=== PATIENT | female | born 1945 | race Caucasian/White ===

== ENCOUNTER 2016-11-14 11:34 | Inpatient (IN) ==
[2016-11-14] MEDS ORDERED: ATROPINE SULFATE PFS IVP PRN (11:49)
[2016-11-14] MEDS ORDERED: TYLENOL PO PRN (11:49)
[2016-11-14] MEDS ORDERED: MORPHINE 4 MG/ML SYRINGE IVP PRN (11:49)
[2016-11-14] MEDS ORDERED: VISTARIL INJ IM PRN (11:49)
[2016-11-14] MEDS ORDERED: NITROSTAT SL PRN (11:49)
[2016-11-14] MEDS ORDERED: ROCEPHIN 1 GM in SODIUM CHLORIDE 100 ML IV SCH (12:00)
[2016-11-14 12:17] LABS: BASOPHILS % (AUTO) 0.2 % (0.0-3.0); EOSINOPHILS # (AUTO) 0.1 K/ul (0.0-0.7); EOSINOPHILS % (AUTO) 0.7 % (0.0-7.0); HEMATOCRIT 30.5 % (37.0-47.0); HEMOGLOBIN 9.6 g/dl (12.0-16.0); IMMATURE GRANULOCYTE % (AUTO) 1.1 % (0.0-5.0); LYMPHOCYTES # (AUTO) 1.1 K/uL (0.60-3.4); LYMPHOCYTES % (AUTO) 9.3 (10.0-50.0); MEAN CORPUSCULAR HEMOGLOBIN 30.1 pg (27.0-31.0); MEAN CORPUSCULAR HGB CONC 31.5 (31.8-35.4); MEAN CORPUSCULAR VOLUME 95.6 fl (81.0-99.0); MONOCYTES # (AUTO) 1.2 K/uL (0.4-2.0); MONOCYTES % (AUTO) 9.7 (0-10); NEUTROPHILS # (AUTO) 9.6 K/ul (2.0-6.9); PLATELET COUNT 319 10^3/uL (140-440); RED BLOOD COUNT 3.19 10^6/ul (4.20-5.40)
[2016-11-14] MEDS ORDERED: ROCEPHIN 1 GM in SODIUM CHLORIDE 50 ML IV STA (12:33)
--- NOTE | 2016-11-14 12:38 | DI ---
Examination: Single radiographic image of the chest. Comparison: 12/20/2014. Reason for study: Shortness of breath. FINDINGS: No pneumothorax or pleural effusion. The images are inverted on today's examination. Th ere is a developing air space opacity in the right upper lobe without discrete consolidation. The c ardiac silhouette is not enlarged. The imaged osseous structures are unremarkable. Impression: 1. Developing air space opacity in the right upper lobe. Imaging findings can be seen with pneumon ia and inflammation. 2. No pneumothorax or pleural effusion.
[2016-11-14 12:41] LABS: ABG PCO2 48.7 mmHg (35-45); ABG PH 7.408 (7.35-7.45)
[2016-11-14 12:45] LABS: ABG BASE EXCESS 6 (-2.0-2.0); ABG HCO3 30.7 (22.0-26.0); ABG TCO2 32 (22.0-28.0)
[2016-11-14 12:48] LABS: ALBUMIN 2.8 g/dL (3.4-5.0); ALBUMIN/GLOBULIN RATIO 0.65; ANION GAP 18.1; BILIRUBIN,TOTAL 0.22 mg/dL (0.00-1.20); BUN/CREATININE RATIO 17.07; CALCIUM 10.3 mg/dL (8.2-10.2); CREATININE 0.82 mg/dL (0.60-1.30); POTASSIUM 4.1 mmol/L (3.5-5.10); TOTAL PROTEIN 7.1 g/dL (5.8-8.1); TROPONIN I 0.102 ng/ml (0.0000-0.4000)
[2016-11-14] MEDS: SOLU-MEDROL 125 MG IVP SCH ×3 (13:00→21:10)
[2016-11-14] MEDS: DUONEB NEB SCH ×3 (13:02→22:44)
--- NOTE | 2016-11-14 13:44 | CT ---
EXAM: CT chest without contrast HISTORY: Shortness of breath COMPARISON: Chest x-ray same day and CT chest 06/20/2013 TECHNIQUE: Serial axial images of the chest were obtained from the lung apices to the upper abdomen without contrast. These were viewed in multiple planes. FINDINGS: The thyroid is normal. The visualized vessels demonstrates scattered atherosclerotic dis ease. The pulmonary arteries are upper limit of normal for size. The heart is normal in size witho ut pericardial effusion. There are mediastinal lymph nodes present with the largest precarinal lymp h node measuring 1.3 cm in diameter. There is a right upper lobe cavitary mass with irregular thickness of the wall measuring 4.1 x 4.7 x 5.8 cm. The wall is significantly thickened superiorly. This is in contact with the right lung ap ex. This cavitary lesion was identified in 2012, but has significantly increased in size and develo ped a asymmetrically thickened wall. The bilateral lungs demonstrate airway thickening with central lobular ground-glass nodularity. The airways are patent. There is no acute consolidation. Limited views of the soft tissues in the upper abdomen are unremarkable with mild atherosclerotic di sease. The osseous structures are normal. IMPRESSION: 1. Increase in right upper lobe cavitary lesion from 2013 with development of irregular and thicken ed wall superiorly. Throughout the remaining lungs, there is scattered small airway thickening and central lobular ground-glass nodularity suggestive of small airways inflammation/infection. These f indings are suggestive of a infectious cavitary lesion in the right upper lobe, but neoplasm cannot be excluded. 2. Mildly enlarged mediastinal lymph nodes are likely reactive. 3. Scattered atherosclerotic disease.
[2016-11-14] MEDS: TESSALON PERLES PO SCH ×3 (14:24→20:49)
[2016-11-14] MEDS: ZITHROMAX 500 MG in SODIUM CHLORIDE 250 ML IV SCH (15:15)
[2016-11-14 15:48] VITALS: BMI 19.3
[2016-11-14 17:29] LABS: FLU INTERNAL QC INTERNAL QC VALID; RAPID FLU A NEGATIVE (NEGATIVE); RAPID FLU B NEGATIVE (NEGATIVE)
[2016-11-14 19:20] LABS: BILIRUBIN,URINE Negative (NEGATIVE); KETONES,URINE Negative (NEGATIVE); LEUKOCYTE ESTERASE ,URINE Negative (NEGATIVE); NITRITE,URINE Negative (NEGATIVE); PROTEIN,URINE Negative (NEGATIVE); URINE, BLOOD Trace-intact (NEGATIVE)
[2016-11-14 19:25] LABS: ADD URINE MICROSCOPIC YES
[2016-11-14] MEDS: LOVENOX SUBCUT SCH (19:53)
[2016-11-14 20:22] LABS: TROPONIN I 0.047 ng/ml (0.0000-0.4000)
[2016-11-14] MEDS: COMBIVENT RESPIMAT INHAL SPRAY IH SCH (20:47)
[2016-11-14] MEDS: ZOCOR PO SCH (20:50)
[2016-11-14] MEDS: ZESTRIL PO SCH (20:50)
[2016-11-14] MEDS ORDERED: LISINOPRIL PO SCH (21:00)
[2016-11-15] MEDS: DUONEB NEB SCH ×4 (04:45→23:05)
[2016-11-15] MEDS: SOLU-MEDROL 125 MG IVP SCH ×3 (05:08→20:20)
[2016-11-15] MEDS ORDERED: PROTONIX PO SCH (06:30)
[2016-11-15] MEDS ORDERED: ASPIRIN EC PO SCH (08:00)
[2016-11-15] MEDS: XANAX PO PRN ×2 (08:14→20:22)
[2016-11-15] MEDS ORDERED: EPA PO SCH ×22 (09:00)
[2016-11-15] MEDS ORDERED: NON-FORMULARY MEDICATION (Calcium Carbonate/Vitamin D3 [Calcium 600 + Vit D Tablet] 1 EACH PO SCH ×22 (09:00)
[2016-11-15] MEDS ORDERED: NON-FORMULARY MEDICATION (Ferrous Sulfate [Ferrous Sulfate] 325 MG) PO SCH ×22 (09:00)
[2016-11-15] MEDS ORDERED: DHA PO SCH ×22 (09:00)
[2016-11-15] MEDS ORDERED: FISH OIL PO SCH ×22 (09:00)
[2016-11-15] MEDS: TRIGLIDE PO SCH (09:40)
[2016-11-15] MEDS: ZESTRIL PO SCH ×2 (09:40→20:21)
[2016-11-15] MEDS: CELEXA PO SCH (09:41)
[2016-11-15] MEDS: PLAVIX PO SCH (09:41)
[2016-11-15] MEDS: TESSALON PERLES PO SCH ×3 (09:41→20:21)
[2016-11-15] MEDS: FERROUS SULFATE PO SCH (09:41)
[2016-11-15] MEDS: ROCEPHIN 1 GM in SODIUM CHLORIDE 100 ML IV SCH (09:43)
[2016-11-15] MEDS: COMBIVENT RESPIMAT INHAL SPRAY IH SCH ×2 (09:43→20:20)
[2016-11-15] MEDS: ASPIRIN EC PO SCH (10:11)
[2016-11-15] MEDS: LOVENOX SUBCUT SCH (10:13)
[2016-11-15] MEDS: CALCIUM 500 + VIT D 200 MG TABLET PO SCH (10:20)
[2016-11-15] MEDS: NORCO 7.5-325 PO PRN ×2 (10:20→20:21)
[2016-11-15] MEDS: TIMOPTIC 0.25% OPTH OP SCH ×2 (10:32→20:22)
[2016-11-15] MEDS: ZITHROMAX 500 MG in SODIUM CHLORIDE 250 ML IV SCH (11:10)
[2016-11-15] MEDS: TUSSIONEX PO SCH ×2 (11:50→20:20)
[2016-11-15] MEDS: OMEGA-3 FISH OIL PO SCH ×2 (15:18→20:21)
[2016-11-15] MEDS: PROTONIX PO SCH (16:52)
[2016-11-15] MEDS: ZOCOR PO SCH (20:21)
[2016-11-15] MEDS: TRAVATAN Z OP SCH (20:36)
[2016-11-16] MEDS: DUONEB NEB SCH ×4 (04:53→22:43)
[2016-11-16] MEDS: SOLU-MEDROL 125 MG IVP SCH ×3 (05:59→20:36)
[2016-11-16] MEDS: PROTONIX PO SCH ×2 (06:02→17:08)
[2016-11-16] MEDS ORDERED: LASIX IVP STA (08:45)
[2016-11-16] MEDS: COMBIVENT RESPIMAT INHAL SPRAY IH SCH ×2 (09:10→20:31)
[2016-11-16] MEDS: TUSSIONEX PO SCH ×2 (09:10→20:32)
[2016-11-16] MEDS: OMEGA-3 FISH OIL PO SCH ×3 (09:10→20:32)
[2016-11-16] MEDS: TIMOPTIC 0.25% OPTH OP SCH ×2 (09:10→20:31)
[2016-11-16] MEDS: ROCEPHIN 1 GM in SODIUM CHLORIDE 100 ML IV SCH (09:10)
[2016-11-16] MEDS: LOVENOX SUBCUT SCH (09:10)
[2016-11-16] MEDS: CALCIUM 500 + VIT D 200 MG TABLET PO SCH (09:11)
[2016-11-16] MEDS: TESSALON PERLES PO SCH ×3 (09:11→20:32)
[2016-11-16] MEDS: FERROUS SULFATE PO SCH (09:11)
[2016-11-16] MEDS: ASPIRIN EC PO SCH (09:11)
[2016-11-16] MEDS: PLAVIX PO SCH (09:11)
[2016-11-16] MEDS: CELEXA PO SCH (09:11)
[2016-11-16] MEDS: ZESTRIL PO SCH ×2 (09:11→20:32)
[2016-11-16] MEDS: TRIGLIDE PO SCH (09:11)
[2016-11-16] MEDS ORDERED: CHLORASEPTIC SPRAY MM PRN (09:49)
[2016-11-16] MEDS: ZITHROMAX 500 MG in SODIUM CHLORIDE 250 ML IV SCH (10:23)
[2016-11-16] MEDS: NORCO 7.5-325 PO PRN (17:28)
[2016-11-16] MEDS: XANAX PO PRN (17:29)
[2016-11-16] MEDS: TRAVATAN Z OP SCH (20:31)
[2016-11-16] MEDS: ZOCOR PO SCH (20:32)
[2016-11-17 03:19] LABS: ABG PH 7.429 (7.35-7.45)
[2016-11-17 03:21] LABS: ABG BASE EXCESS 9 (-2.0-2.0); ABG HCO3 33.8 (22.0-26.0); ABG TCO2 35 (22.0-28.0)
[2016-11-17 04:45] LABS: BASOPHILS % (AUTO) 0.1 % (0.0-3.0); HEMATOCRIT 25.5 % (37.0-47.0); HEMOGLOBIN 8.1 g/dl (12.0-16.0); IMMATURE GRANULOCYTE % (AUTO) 4.3 % (0.0-5.0); LYMPHOCYTES # (AUTO) 0.5 K/uL (0.60-3.4); LYMPHOCYTES % (AUTO) 6.1 (10.0-50.0); MEAN CORPUSCULAR HEMOGLOBIN 30.6 pg (27.0-31.0); MEAN CORPUSCULAR HGB CONC 31.8 (31.8-35.4); MEAN CORPUSCULAR VOLUME 96.2 fl (81.0-99.0); MONOCYTES # (AUTO) 0.2 K/uL (0.4-2.0); MONOCYTES % (AUTO) 2.6 (0-10); NEUTROPHILS # (AUTO) 7.3 K/ul (2.0-6.9); NEUTROPHILS % (AUTO) 86.9; PLATELET COUNT 278 10^3/uL (140-440); RED BLOOD COUNT 2.65 10^6/ul (4.20-5.40); WHITE BLOOD COUNT 8.38 K/ul (4.6-10.2)
[2016-11-17] MEDS: DUONEB NEB SCH ×4 (05:03→23:29)
[2016-11-17 05:09] LABS: ALBUMIN 2.4 g/dL (3.4-5.0); ALBUMIN/GLOBULIN RATIO 0.77; ANION GAP 12.6; BILIRUBIN,TOTAL 0.12 mg/dL (0.00-1.20); BUN/CREATININE RATIO 25.92; CALCIUM 9.3 mg/dL (8.2-10.2); CREATININE 0.81 mg/dL (0.60-1.30); POTASSIUM 4.6 mmol/L (3.5-5.10); TOTAL PROTEIN 5.5 g/dL (5.8-8.1)
[2016-11-17] MEDS: PROTONIX PO SCH ×2 (05:40→17:13)
[2016-11-17] MEDS: SOLU-MEDROL 125 MG IVP SCH ×2 (05:40→14:13)
[2016-11-17 08:39] LABS: IMMATURE RETIC FRACTION 35.1; RETICULOCYTE % 3.35 %
[2016-11-17] MEDS: ROCEPHIN 1 GM in SODIUM CHLORIDE 100 ML IV SCH (09:15)
[2016-11-17] MEDS: ASPIRIN EC PO SCH (09:19)
[2016-11-17] MEDS: CALCIUM 500 + VIT D 200 MG TABLET PO SCH (09:19)
[2016-11-17] MEDS: COMBIVENT RESPIMAT INHAL SPRAY IH SCH ×2 (09:20→21:31)
[2016-11-17] MEDS: CELEXA PO SCH (09:20)
[2016-11-17] MEDS: FERROUS SULFATE PO SCH (09:21)
[2016-11-17] MEDS: LOVENOX SUBCUT SCH (09:21)
[2016-11-17 09:22] LABS: FERRITIN 75.44 ng/mL (4.63-204.00); FOLATE 9.5 ng/mL (3.1-20.5)
[2016-11-17] MEDS: OMEGA-3 FISH OIL PO SCH ×3 (09:22→21:37)
[2016-11-17] MEDS: PLAVIX PO SCH (09:23)
[2016-11-17] MEDS: TESSALON PERLES PO SCH ×3 (09:23→21:39)
[2016-11-17] MEDS: TRIGLIDE PO SCH (09:24)
[2016-11-17] MEDS: TUSSIONEX PO SCH ×2 (09:24→21:36)
[2016-11-17] MEDS: TIMOPTIC 0.25% OPTH OP SCH ×2 (09:24→21:33)
[2016-11-17] MEDS: ZESTRIL PO SCH ×2 (09:25→21:37)
[2016-11-17] MEDS: NORCO 7.5-325 PO PRN ×2 (09:37→21:00)
[2016-11-17 10:01] LABS: OCCULT BLOOD INTERNAL QC 1 INTERNAL QC VALID; OCCULT BLOOD SAMPLE 1 POSITIVE (NEGATIVE)
[2016-11-17 11:16] LABS: TROPONIN I 0.015 ng/ml (0.0000-0.4000)
[2016-11-17 13:21] LABS: AMYLASE 43 U/L (25-115); LIPASE 25 U/L (8-78)
[2016-11-17] MEDS ORDERED: MEDROL DOSEPAK PO SCH ×7 (13:30→14:30)
--- NOTE | 2016-11-17 14:16 | CT ---
EXAM: CT Abdomen without contrast. CT Pelvis without contrast. HISTORY: Anemia. COMPARISON: 09/08/2016. TECHNIQUE: Multiple axial images of the abdomen and pelvis were obtained without intravenous contra st. Images were reformatted in the coronal plane. FINDINGS: Please note that evaluation of the abdominal and pelvic structures is limited due to lack of intravenous contrast. No acute abnormality identified in the lung bases. Degenerative changes are present in the spine. The liver, gallbladder, pancreas, spleen, and adrenal glands demonstrate normal contour. Left kidne y is smaller on the right. No calcified renal stones or hydronephrosis detected. The bowel is normal in course and caliber without evidence for obstruction or inflammatory process. The appendix is normal. Uterus is absent. Urinary bladder is unremarkable. No free fluid or free air identified. Atherosclerotic calcifications are present. There is fusiform dilatation of the i nfrarenal abdominal aorta to a maximum diameter of 3.3 cm. IMPRESSION: 1. No acute abnormality within the abdomen or pelvis. 2. Atherosclerosis with 3.3 cm fusiform infrarenal abdominal aortic aneurysm.
[2016-11-17] MEDS: MEDROL DOSEPAK PO SCH ×2 (17:12→21:31)
[2016-11-17] MEDS: TRAVATAN Z OP SCH (21:33)
[2016-11-17] MEDS: ZOCOR PO SCH (22:27)
[2016-11-18 00:02] LABS: OCCULT BLOOD INTERNAL QC 2 INTERNAL QC VALID; OCCULT BLOOD INTERNAL QC 3 INTERNAL QC VALID; OCCULT BLOOD SAMPLE 2 NO SPECIMEN RECEIVED (NEGATIVE); OCCULT BLOOD SAMPLE 3 NO SPECIMEN RECEIVED (NEGATIVE)
[2016-11-18] MEDS: XANAX PO PRN (03:15)
[2016-11-18 05:42] LABS: BASOPHILS % (AUTO) 0.1 % (0.0-3.0); HEMATOCRIT 26.3 % (37.0-47.0); HEMOGLOBIN 8.4 g/dl (12.0-16.0); IMMATURE GRANULOCYTE % (AUTO) 4.3 % (0.0-5.0); LYMPHOCYTES # (AUTO) 0.8 K/uL (0.60-3.4); LYMPHOCYTES % (AUTO) 9.5 (10.0-50.0); MEAN CORPUSCULAR HEMOGLOBIN 30.7 pg (27.0-31.0); MEAN CORPUSCULAR HGB CONC 31.9 (31.8-35.4); MONOCYTES # (AUTO) 0.7 K/uL (0.4-2.0); MONOCYTES % (AUTO) 7.8 (0-10); NEUTROPHILS # (AUTO) 6.6 K/ul (2.0-6.9); NEUTROPHILS % (AUTO) 78.3; PLATELET COUNT 299 10^3/uL (140-440); RED BLOOD COUNT 2.74 10^6/ul (4.20-5.40); WHITE BLOOD COUNT 8.42 K/ul (4.6-10.2)
[2016-11-18] MEDS: DUONEB NEB SCH ×2 (05:44→11:10)
[2016-11-18] MEDS: MEDROL DOSEPAK PO SCH (05:54)
[2016-11-18 05:55] LABS: ALBUMIN 2.5 g/dL (3.4-5.0); ALBUMIN/GLOBULIN RATIO 0.89; ANION GAP 10.6; BILIRUBIN,TOTAL 0.17 mg/dL (0.00-1.20); BUN/CREATININE RATIO 24.46; CALCIUM 9.2 mg/dL (8.2-10.2); CREATININE 0.94 mg/dL (0.60-1.30); POTASSIUM 4.6 mmol/L (3.5-5.10); TOTAL PROTEIN 5.3 g/dL (5.8-8.1)
[2016-11-18] MEDS: PROTONIX PO SCH (06:00)
[2016-11-18] MEDS: ROCEPHIN 1 GM in SODIUM CHLORIDE 100 ML IV SCH (08:52)
[2016-11-18] MEDS: FERROUS SULFATE PO SCH (08:53)
[2016-11-18] MEDS: OMEGA-3 FISH OIL PO SCH (08:53)
[2016-11-18] MEDS: ASPIRIN EC PO SCH (08:53)
[2016-11-18] MEDS: PLAVIX PO SCH (08:54)
[2016-11-18] MEDS: TESSALON PERLES PO SCH (08:54)
[2016-11-18] MEDS: CALCIUM 500 + VIT D 200 MG TABLET PO SCH (08:54)
[2016-11-18] MEDS: CELEXA PO SCH (08:54)
[2016-11-18] MEDS: ZESTRIL PO SCH (08:54)
[2016-11-18] MEDS: LOVENOX SUBCUT SCH (08:55)
[2016-11-18] MEDS: COMBIVENT RESPIMAT INHAL SPRAY IH SCH (08:56)
[2016-11-18] MEDS: TIMOPTIC 0.25% OPTH OP SCH (08:58)
[2016-11-18] MEDS: TUSSIONEX PO SCH (08:58)
[2016-11-18] MEDS: TRIGLIDE PO SCH (08:58)
[2016-11-18 10:43] VITALS: BP 146/70; TEMP 98
--- NOTE | 2016-11-18 11:27 | PN ---
DATE OF SERVICE: 11/15/16 SUBJECTIVE: The patient is a 71 year old white female hospitalized with upper respiratory tract infection and shortness of breath with bronchitis. The patient has been a smoker and also has cavitary mass, lesion likely neoplasm followed by pulmonary physician. The patient's CT scan of the chest was repeated and showed increased right upper lobe cavitary lesion from 2012. The possibility of neoplasm or infectious cavity lesion was noted. It is to be noted that the patient has no symptoms of tuberculosis. Her weight has been stable and she doesn't have low grade fever and in fact she doesn't have any hemoptysis. REVIEW OF SYSTEMS: CONSTITUTIONAL: No night sweats. No fatigue, malaise, lethargy. No fever or chills. HEENT: Eyes: No visual changes. No eye pain. No eye discharge. ENT: No runny nose. No epistaxis. No sinus pain. No sore throat. No odynophagia. No congestion. Hoariness of the voice. RESPIRATORY: mild cough and congestion. No hemoptysis. She says that she practically coughed all night. The cough was dry. No PND. No orthopnea. CARDIOVASCULAR: No angina symptoms. No CHF symptoms. No atypical chest pain for CAD. No palpitations. No shortness of breath. The patient has pleuritic type of pain at times. GASTROINTESTINAL: No abdominal pain. No nausea or vomiting. No diarrhea or constipation. No hematemesis. No hematochezia. Appetite is better. GENITOURINARY: No urgency. No frequency. No dysuria. No hematuria. No obstructive symptoms. No discharge. No pain. No significant abnormal bleeding. MUSCULOSKELETAL: No musculoskeletal pain; no joint swelling. NEUROLOGICAL: No headache. No neck pain. No syncope. No seizures. No dizziness. PSYCHIATRIC: Not anxious. No depression. No suicidal thoughts. No homicidal thoughts. SKIN: No rash. No lesions. No wounds. ENDOCRINE: No unexplained weight loss. No weight gain. HEMATOLOGIC/LYMPHATIC: No anemia. No purpura. No petechiae. No prolonged or excessive bleeding. No palpable lymph nodes. PHYSICAL EXAMINATION: GENERAL: The patient is oriented to time, place and person. VITAL SIGNS: Temperature 97.5, pulse 80, respiratory rate 22, blood pressure 143/65 and pulse ox 99%. HEENT: Head normocephalic, atraumatic. Eyes: Extraocular muscles are intact. Pupils are equal, round and reactive to light and accommodation. Ears: No lesions. Nose appeared normal. Throat: No exudate or erythema. NECK: Supple. No JVD, no carotid bruit. No lymphadenopathy or thyromegaly. LUNGS: Decreased breath sounds with mild wheeze. Clear to auscultation. Percussion note normal. Chest symmetrical. HEART: S1, S2, no S3. No murmurs. No cyanosis or clubbing. No ascites. Pulses: Dorsalis pedis and posterior tibial pulses +1 to +2 both sides. ABDOMEN: Soft. Nontender. Bowel sounds active. No CVA tenderness. No mass felt. EXTREMITIES: No edema. Full range of motion of all extremities, equal. NEUROLOGIC: No focal deficit. Cranial nerves II through XII are grossly intact. No headache, no double vision or headache. SKIN: Not dry. Intact. Turgor - normal. LYMPHATIC: No palpable lymph nodes/no lymphedema. MUSCULOSKELETAL: Normal joints with no swelling. Muscle tone is normal. LABS: Hgb 9.6, hct 30, WBC 12,000 normal differential, creatinine 0.8, BUN 14, potassium 4.1 these labs were done yesterday. ASSESSMENT: 1. Acute bronchitis with chronic lung disease with history of smoking. 2. Cavitary lesion present on the right upper cavity for long time, being followed by pulmonary MD 3. Depression 4. Dyslipidemia 5. Hypertension 6. Generalized osteoarthritis PLAN: 1. Continue DUO NEBS 2. Continue Inhalers 3. Continue IV antibiotics 4. Continue IV steroids 5. Continue Oxygen supplement 6. Will add Tussionex 1 teaspoon twice a day for coughing CONDITION: Stable Counseling for smoking done. TIME SPENT: More than 30 minutes. Plan and coordination of the patient's care discussed in the presence of nurse. JOVANY
--- NOTE | 2016-11-18 11:38 | PCM.PROG ---
Attending Provider: ATTENDING PROVIDER: Dr. IVETTE TAN DATE OF SERVICE: 11/18/16 SUBJECTIVE: This 71 year old WHITE/ F was hospitalized 11/14/16. The patient is admitted with COPD exacerbation and bronchitis. Hemoglobin dropped from 9.2 to 8.4. Stool for occult blood is positive. CT scan did not show any colonic mass. The patient has never had a colonoscopy, The patient was explained the importance of having the colonoscopy and is agreeable. Breathing is better; she is still coughing. REVIEW OF SYSTEMS: CONSTITUTIONAL: No fever, no chills. ENDOCRINE: No weight loss or weight gain. HEENT: No sinus drainage, no sore throat. CVS: No angina symptoms. No CHF symptoms. No palpitations. No atypical chest pain for CAD. No shortness of breath. RESPIRATORY: Cough. No hemoptysis. GI: No melena. No abdominal pain. No nausea, no vomiting. : No hematuria. No polyuria. SKIN: No rash. No wounds. MUSCULOSKELETAL: No pain. SUPER[employer]: No blackout, no dizziness. No headache. No double vision. PSYCHIATRIC: Not anxious; no depression. No suicidal thoughts. No homicidal thoughts. PHYSICAL EXAMINATION: GENERAL: Lying in bed in no distress. VITAL SIGNS: Temperature 97.1 F, Pulse 67, Respiratory Rate 20, BP 132/70, Pulse Ox 98% HEENT: Normocephalic, atraumatic. Mucosa is dry, pallor positive. NECK: No JVP, no carotid bruit. No lymphadenopathy. CARDIAC: S1, S2, no S3. No murmur, gallop or regurgitation. LUNGS: Decreased with some crackles, expiratory wheezing but is better. ABDOMEN: Soft, non-tender. Bowel sounds active. No rigidity, guarding or CVA tenderness. EXTREMITIES: No clubbing, cyanosis or edema. NEUROLOGIC: Awake, alert and oriented x3. LYMPHATIC: No palpable lymph nodes SKIN: Not dry. Intact. MUSCULOSKELETAL: No joint swelling. LAB REVIEW: 11/18/16 05:00 11/18/16 05:00 11/18/16 05:00: WBC 8.42, RBC 2.74 L, Hgb 8.4 L, Hct 26.3 L, MCV 96.0, MCH 30.7 , MCHC 31.9, RDW Coeff of Nika 15.7 H, Plt Count 299, Immature Gran % (Auto) 4.3 , Neut % (Auto) 78.3, Lymph % (Auto) 9.5 L, Merrick % (Auto) 7.8, Eos % (Auto) 0.0 , Baso % (Auto) 0.1, Immature Gran # (Auto) 0.4, Neut # 6.6, Lymph # 0.8, Merrick # 0.7, Eos # 0.0, Baso # 0.0, Sodium 130 L, Potassium 4.6, Chloride 87 L, Carbon Dioxide 37 H, Anion Gap 10.6, BUN 23 H, Creatinine 0.94, Estimated GFR ( MDRD) 58.00, BUN/Creatinine Ratio 24.46, Glucose 113, Calcium 9.2, Total Bilirubin 0.17, AST 15, ALT 10 L, Alkaline Phosphatase 45 L, Total Protein 5.3 L , Albumin 2.5 L, Globulin 2.8, Albumin/Globulin Ratio 0.89 11/17/16 10:45: Total Creatine Kinase 18, Troponin I 0.0150, Amylase 43, Lipase 25 11/17/16 09:10: Stl Occult Blood (IFOB) Positive, Stool Occult Blood #2 No specimen received, Stool Occult Blood #3 No specimen received 11/17/16 04:25: Reticulocyte % (Auto) 3.35, Absolute Retic 0.0905, Retic Hgb Equivalent 29.4, Iron 22 L, TIBC 266, % Saturation 8, Unsat Iron Binding 244, Ferritin 75.44, Vitamin B12 > 2000 H, Folate 9.5 ASSESSMENT: 1. COPD exacerbation secondary to bronchitis 2. Hypoxemia secondary to above 3. Anemia with positive occult blood 4. Hypertension 5. Dyslipidemia 6. Nicotine use PLAN: 1. Discharge home 2. Keflex 500 mg b.i.d. for 5 days 3. Prednisone 10 mg twice each day for five days 4. Evaluate for home oxygen 5. Nicotine use and its side effects discussed with the patient to include risk of various cancers, lung, colon, et cetera. 6. Followup in the office within 5 days 7. Will recheck hemoglobin Plan and coordination of the patient's care discussed in the presence of Technical Data Analyst and nurse. EDUCATION: Nicotine use and its side effects discussed with the patient to include risk of various cancers, lung, colon, et cetera. Advised the patient to quit. Also discussed with the patient concerning the need for colonoscopy. She is advised to have one. She has agreed for this procedure. The patient states that she has seen Dr. Villeda in the past. Yoli, Technical Data Analyst will get referral. The patient voices understanding and agrees. CONDITION: STABLE SCRIBED BY: JEFFREY ODONNELL Roving Winder scribed while in presence of service performed by Dr. IVETTE TAN on 11/18/16 ([id number])
--- NOTE | 2016-11-18 12:16 | CM.DICTOOL ---
ADMISSION: 11/14/16 11:34 DISCHARGE: 2016 DATE OF SERVICE: 11/18/16 FINAL DIAGNOSIS Shortness of breath URI (upper respiratory infection) Anemia Hypoexemia COPD Continued Smoking Hypertension Dyslipidemia Depression DJD spine Infrarenal Fusiform Abdominal Aortic Aneurysm, 3.[address] (noted in 2012, 2015 and 2016) Hysterectomy Left Breast Lumpectomy LAST VITALS Temp Pulse Resp BP Pulse Ox 98.0 F 62 20 146/70 H 92 L 11/18/16 10:00 11/18/16 10:00 11/18/16 10:00 11/18/16 10:00 11/18/16 10:00 ACTIVE HOME MEDICATIONS Acetaminophen/Hydrocodone Bitart ([place] 7.5-325) 1 tab PO BID PRN PRN Reason: pain Last Admin: 11/17/16 21:00 Dose: 1 tab Albuterol/Ipratropium (Combivent Respimat Inhal [place]) 1 spray IH BID [facility] Last Admin: 11/18/16 08:56 Dose: 1 spray Alprazolam (Xanax) 0.5 mg PO TID PRN PRN Reason: ANXIETY Last Admin: 11/18/16 03:15 Dose: 0.5 mg Aspirin (Aspirin Ec) 81 mg PO DAILYWM [facility] Last Admin: 11/18/16 08:53 Dose: 81 mg Calcium/Vitamin D (Calcium 500 + Vit D 200 Mg Tablet) 1 each PO DAILY [facility] Last Admin: 11/18/16 08:54 Dose: 1 each Citalopram Hydrobromide (Celexa) 20 mg PO DAILY [facility] Last Admin: 11/18/16 08:54 Dose: 20 mg Clopidogrel Bisulfate (Plavix) 75 mg PO DAILY [facility] Last Admin: 11/18/16 08:54 Dose: 75 mg Fenofibrate (Triglide) 160 mg PO DAILY [facility] Last Admin: 11/18/16 08:58 Dose: 160 mg Ferrous Sulfate (Ferrous Sulfate) 324 mg PO DAILY [facility] Last Admin: 11/18/16 08:53 Dose: 324 mg Fish Oil ([place]-3 Fish Oil) 1,000 mg PO TID [facility] Last Admin: 11/18/16 08:53 Dose: 1,000 mg Lisinopril (Zestril) 20 mg PO BID [facility] Last Admin: 11/18/16 08:54 Dose: 20 mg Methylprednisolone (Medrol Dosepak) 4 mg PO 1300 SUSAN PRN Reason: Taper Stop: 11/22/16 09:29 Last Admin: 11/18/16 05:54 Dose: 4 mg Nitroglycerin (Nitrostat) 0.4 mg SL Q5MIN X 3 DOSES PRN PRN Reason: Chest Pain Last Admin: 11/17/16 10:05 Dose: 0.4 mg Pantoprazole Sodium (Protonix) 40 mg PO BIDAC [facility] Last Admin: 11/18/16 06:00 Dose: 40 mg Simvastatin (Zocor) 40 mg PO BEDTIME [facility] Last Admin: 11/17/16 22:27 Dose: 40 mg Timolol Maleate (Timoptic 0.25% Opth) 1 drop OP BID [facility] Last Admin: 11/18/16 08:58 Dose: 1 drop Travoprost (Travatan Z) 1 drop OP BEDTIME [facility] Last Admin: 11/17/16 21:33 Dose: 1 drop ALLERGIES No Known Allergies Allergy (Unverified 11/15/16 02:42) NEW PRESCRIPTIONS: Keflex 500 mg BID for 5 days Please complete the hospital issued Medrol Dose Pack according to direction. SMOKING: Advised to stop smoking DISEASE SPECIFIC EDUCATION: Smoking COPD Anemia Prescriptions Appointments LAB REVIEW: 11/18/16 05:00 11/18/16 05:00 11/18/16 05:00: WBC 8.42, RBC 2.74 L, Hgb 8.4 L, Hct 26.3 L, MCV 96.0, MCH 30.7 , MCHC 31.9, RDW Coeff of Nika 15.7 H, Plt Count 299, Immature Gran % (Auto) 4.3 , Neut % (Auto) 78.3, Lymph % (Auto) 9.5 L, Carl[place] % (Auto) 7.8, Eos % (Auto) 0.0 , Baso % (Auto) 0.1, Immature Gran # (Auto) 0.4, Neut # 6.6, Lymph # 0.8, Carl[place] # 0.7, Eos # 0.0, Baso # 0.0, Sodium 130 L, Potassium 4.6, Chloride 87 L, Carbon Dioxide 37 H, Anion Gap 10.6, BUN 23 H, Creatinine 0.94, Estimated GFR ( MDRD) 58.00, BUN/Creatinine Ratio 24.46, Glucose 113, Calcium 9.2, Total Bilirubin 0.17, AST 15, ALT 10 L, Alkaline Phosphatase 45 L, Total Protein 5.3 L , Albumin 2.5 L, Globulin 2.8, Albumin/Globulin Ratio 0.89 11/17/16 10:45: Amylase 43, Lipase 25 11/17/16 09:10: Stool Occult Blood #2 No specimen received, Stool Occult Blood # 3 No specimen received PLAN: Discharge home Diet: Regular Activity: Gradually resume as tolerated Medication changes: Increase Ferrous sulfate (iron) to twice daily Appointments: Dr. Vega on November 24 at 9 am. Blood work will be done to check the CBC Dr. Concepcion ([facility]) on November 25 at 1:15 pm Ms. Escobar is alert and oriented x 3. She is independent with ADL'S and is ambulatory without use of assistive device. Ms. Escobar is the primary caregiver for her brother who lives in the home with her. Meal intakes are good at 20-75% . She denies nausea or abdominal pain. A stool for occult blood was positive and an appointment has been made with Dr. Concepcion for evaluation for colonoscopy and endoscopy. She is advised to stop smoking. Skin condition is good, no open sores, rashes or other irritation. Sina Vega MD
--- NOTE | 2016-11-18 13:31 | PN ---
DATE OF SERVICE: 11/16/16 SUBJECTIVE: The patient is a 71 year old white female hospitalized with upper respiratory tract infection and shortness of breath on minimal exertion. The patient has acute pneumonitis. REVIEW OF SYSTEMS: CONSTITUTIONAL: No night sweats. Still fatigue. No fever or chills. HEENT: Eyes: No visual changes. No eye pain. No eye discharge. ENT: No runny nose. No epistaxis. No sinus pain. No sore throat. No odynophagia. No congestion. RESPIRATORY: Mild cough with congestion. No hemoptysis. CARDIOVASCULAR: No angina symptoms. No CHF symptoms. No atypical chest pain for CAD. No palpitations. Exertional shortness of breath more than usual lately. No PND. No orthopnea. GASTROINTESTINAL: No abdominal pain. No nausea or vomiting. No diarrhea or constipation. No hematemesis. No hematochezia. Appetite is improving. GENITOURINARY: No urgency. No frequency. No dysuria. No hematuria. No obstructive symptoms. No discharge. No pain. No significant abnormal bleeding. MUSCULOSKELETAL: No musculoskeletal pain; no joint swelling. NEUROLOGICAL: No headache. No neck pain. No syncope. No seizures. No dizziness. PSYCHIATRIC: Not anxious. No depression. No suicidal thoughts. No homicidal thoughts. SKIN: No rash. No lesions. No wounds. ENDOCRINE: No unexplained weight loss. No weight gain. HEMATOLOGIC/LYMPHATIC: No anemia. No purpura. No petechiae. No prolonged or excessive bleeding. No palpable lymph nodes. PHYSICAL EXAMINATION: GENERAL: The patient is oriented to time, place and person. VITAL SIGNS: Temperature 97.8, pulse 100, respiratory rate 21, blood pressure 123/65 and pulse ox 91% with oxygen. HEENT: Head normocephalic, atraumatic. Eyes: Extraocular muscles are intact. Pupils are equal, round and reactive to light and accommodation. Ears: No lesions. Nose appeared normal. Throat: No exudate or erythema. NECK: Supple. No JVD, no carotid bruit. No lymphadenopathy or thyromegaly. LUNGS: Decreased breath sounds but clear to auscultation. Percussion note normal. Chest symmetrical. HEART: S1, S2, no S3. No murmurs. No cyanosis or clubbing. No ascites. Pulses: Dorsalis pedis and posterior tibial pulses +1 to +2 both sides. ABDOMEN: Soft. Nontender. Bowel sounds active. No CVA tenderness. No mass felt. EXTREMITIES: No edema. Full range of motion of all extremities, equal. NEUROLOGIC: No focal deficit. Cranial nerves II through XII are grossly intact. No headache, no double vision or headache. SKIN: Not dry. Intact. Turgor - normal. LYMPHATIC: No palpable lymph nodes/no lymphedema. MUSCULOSKELETAL: Normal joints with no swelling. Muscle tone is normal. LABS: Hgb 9.6, hct 30, WBC 12,000 normal differential, creatinine 0.8, BUN 14, potassium 4.1 and BNP 522. ASSESSMENT: 1. Acute respiratory failure 2. Acute bronchitis 3. Severe chronic lung disease 4. Cavitary lesion on the right lung, being followed by pulmonary MD. 5. Depression 6. Hypertension 7. Dyslipidemia 8. Generalized osteoarthritis PLAN: 1. Continue NEBS treatment 2. Continue Steroids 3. Continue IV antibiotics 4. IV Lasix was given yesterday because of the swelling of the face and the generalized swelling likely from fluid retention from steroid therapy. 5. Continue antibiotics 6. Will do echocardiogram 7. Daily CBC and CMP 8. Will repeat BNP. CONDITION: Stable. TIME SPENT: More than 30 minutes. Plan and coordination of the patient's care discussed in the presence of nurse. JOVANY
--- NOTE | 2016-11-19 08:54 | HP ---
DATE OF SERVICE: 11/14/16 REASON FOR HOSPITALIZATION: Cough, fever, aching all over. HISTORY OF PRESENT ILLNESS: This is a 71-year-old female with complaints of being sick for 2 weeks with fever and chills, getting yellow-green sputum, lots of sinus drainage, sore throat, hurting all over, headache, shortness of breath even at rest. REVIEW OF SYSTEMS: CONSTITUTIONAL: Fever; fatigue. HEENT: Sinus drainage. No sore throat. RESPIRATORY: Cough. No congestion. CARDIOVASCULAR: Shortness of breath is present. No atypical chest pain for coronary artery disease. No angina, CHF symptoms, palpitations. GASTROINTESTINAL: No melena or abdominal pain. No GERD. GENITOURINARY: No hematuria, no polyuria. COMMERCIAL SPECIALIST: No blackout, no dizziness, no headache, no double vision. MUSCULOSKELETAL: Osteoarthritis pain. No joint swelling. ENDOCRINE: No weight loss, no weight gain. SKIN: Not dry, no rash. PSYCHIATRIC: Anxious. No depression, no suicidal thoughts, no homicidal thoughts. PAST MEDICAL HISTORY: 1. COPD 2. CONTINUED SMOKING 3. DJD SPINE, SEVERE 4. DYSLIPIDEMIA 5. HYPERTENSION 6. DEPRESSION 7. PERIPHERAL ARTERIAL DISEASE PAST SURGICAL HISTORY: 1. HYSTERECTOMY 2. CEA BILATERALLY 3. LEFT BREAST LUMPECTOMY SOCIAL HISTORY: The patient smokes, two packs. No alcohol use. . FAMILY HISTORY: COPD, hypertension. MEDICATIONS: (HOME) 1. Fenofibrate 160 mg one tablet p.o. once daily 2. Citalopram 20 mg 1 1/2 tablet p.o. once a day 3. Plavix 75 mg one p.o. daily 4. Lisinopril 20 mg one tablet p.o. two times per day 5. Cimetidine 400 mg tablet two tablets p.o. two times per day 6. Simvastatin 40 mg p.o. once daily in the evening 7. Alprazolam 0.5 mg p.o. three times per day p.r.n. 8. Combivent 18-103 mcg/actuation two puffs by inhalation route four times per day 9. Hydrocodone-acetaminophen 7.5-325 mg p.o. two times per day as needed for pain 10. Albuterol Sulfate 2.5 mg/0.5 mL solution for nebulization four times per day as needed 11. Calcium 600 +D daily 12. Spiriva one capsule by inhalation once daily 13. Fish Oil 360-1,200 mg capsule p.o. three times per day 14. Travatan Z 0.004 % drops one drop into both eyes by ophthalmic route once daily in the evening 15. Timolol 0.25% instill one drop into both eyes by ophthalmic route two times per day 16. Aspirin 81 mg p.o. once daily ALLERGIES: NKDA PHYSICAL EXAMINATION: V/S: Pulse 92, BP 132/70, temperature 100.8, 02 sat 85%. Weight 124.2 pounds. Height 5'5", BMI 20.7 GENERAL APPEARANCE: Oriented times three. The patient is ill-appearing. Dry mucosa. HEENT: Normal. NECK: No JVP, no bruits. RESPIRATORY: Audible wheeze and crackles with decreased entry. CARDIOVASCULAR: S1, S2, no S3, no murmurs. No cyanosis, clubbing. No ascites. GI/ABDOMEN: No tenderness. Bowel sounds are active. EXTREMITIES: No edema, pulses +1, equal. COMMERCIAL SPECIALIST: Deep tendon reflexes, sensory, motor and gait all normal. RECTAL/PELVIC: Colonoscopy screening - Dr. Villeda; refused repeat. Pelvic: Hysterectomy, CA cervix. Refused mammogram. ASSESSMENT: 1. SHORTNESS OF BREATH SECONDARY TO UPPER RESPIRATORY TRACT INFECTION/ PNEUMONIA, R/O FLU 2. HYPOXEMIA 3. COPD - CONTINUED SMOKING 4. DJD SPINE, SEVERE 5. DYSLIPIDEMIA 6. HYPERTENSION 7. DEPRESSION 8. PERIPHERAL ARTERIAL DISEASE - CEA PLAN: (Admit to regular floor with telemetry protocol) 1. CBC, CMP 2. BNP 3. ABG on room air 4. CT chest with contrast 5. Rapid flu A & B 6. Blood culture with sputum cultures 7. IVF at 8. Rocephin 1 gm IV daily 9. Zithromycin 500 mg IV daily 10. Duoneb q.6hr 11. Solu-Medrol 125 mg q.8hr 12. Tessalon Perles 200 mg q.i.d. 13. Continue home medications TIME SPENT: More than 70 minutes. MTDD
--- NOTE | 2016-11-20 11:15 | ECHO2D ---
Date of Exam: 11/18/16 Ordering Physician: GREG GONZALEZ Reason for Echo: HTN, SOB, RESPIRATORY FAILURE Auscultation: S1, S2 M-Mode Normal Adult Results LV Dimensions Normal Adult Results AoV Opening excursions >1.6 >1.6 LVEDD-base- 3.5-5.8 4.2 Ao root dimensions 2.0-3.7 2.8 LVESD-base- 3.1-4.6 L. Atrium dimensions 1.9-3.8 3.8 Post. Wall thickness 0.8-1.1 1.2 IV septum (thickness) 0.7-1.2 1.2 Post. Wall excursion 0.72-1.3 NORMAL Septal motion NORMAL Systolic motion R. Ventricular cavity 1.5-2.0 NORMAL LVEF 60% 53% Paradoxical septal wall motion NORMAL 2-D : NORMAL LEFT VENTRICULAR CONTRACTILITY--NORMAL VALVES--NO EFFUSION, NO THROMBUS, NORMAL LEFT ATRIAL AND LEFT VENTRICLE CAVITIES M-MODE: MV: NORMAL AV: NORMAL TV: NORMAL PV: CHAMBER SIZE: NORMAL WALL MOTION: NORMAL PERICARDIUM: NORMAL INTERPRETATION: 1. BORDERLINE LEFT VENTRICULAR HYPERTROPHY 2. NORMAL LEFT VENTRICULAR CONTRACTILITY 3. NORMAL VALVES MTDD
--- NOTE | 2016-11-20 12:44 | DS ---
DATE OF SERVICE: 11/18/16 FINAL DIAGNOSIS: 1. Upper respiratory infection 2. Shortness of breath secondary to the upper respiratory infection 3. Anemia secondary to the chronic disease and GI bleed, positive Occult blood test, awaiting for the GI evaluation 4. Hypoxemia which is better 5. COPD, continued smoking 6. Hypertension 7. Dyslipidemia 8. Depression 9. DJD spine 10.Infrarenal fusiform abdominal aortic aneurysm, 3.3cm 11.Hysterectomy 12.Left breast lumpectomy VITAL AT THE TIME OF DISCHARGE: Blood pressure 146/70, respiratory rate 20, heart rate 62, temperature 98.0 and saturation 92%. DISCHARGE INSTRUCTIONS: Discharge home today. Continue home medication. Followup in the office within 5- 7 days. MEDICATIONS AT DISCHARGE: [place] Combivent Xanax Aspirin Calcium Celexa Plavix Triglide Ferrous sulfate [place] 3 Zestril Protonix Zocor Eye drops [place] ALLERGIES: No known allergies NEW PRESCRIPTIONS: Keflex 500mg twice a day for 5 days Please continue and finish the Medrol Dosepak from the hospital DIET INSTRUCTIONS: Regular ACTIVITY: Gradually resume as tolerated SMOKING: Advised to stop smoking DISEASE SPECIFIC EDUCATION: COPD, Exacerbation and Pneumonia been discussed Pneumonia vaccination been discussed Anemia and the Risk of GI bleed and colon cancer discussed and she verbalized understanding and wants to go for the colonoscopy now, which has been scheduled as outpatient. HOSPITAL COURSE: Valerie Escobar who is a 71 year old female came to the office coughing, congestion , shortness of breath and saturation was 85% on the room air, respiratory rate was almost 30. At that time the patient was admitted from the office directly. ABG showed pH 7.408, pCO2 48, pO2 [address] and BNP was 505. CT of the chest showed the questionable inflammation and increasing in the cavitary lesion. The patient was already seeing Dr. Goel in the past for the cavitary lesion. No biopsy was done. The patient was put on the Rocephin, Azithromycin, Solu-Medrol and breathing treatment. Hgb was 9.6 and dropped to 8.1, stool for Occult blood test was done which is positive. Influenza negative. CT of abdomen and pelvis done which showed intrarenal aneurysm 3.3cm. Hgb was steady then and did not drop. It went up to 8.4 and the patient finally agreed to do the colonoscopy and today she was feeling better but stress from the patient's brother's health otherwise she was willing to go home. At that time she was discharged home and strictly explained about the anemia. Continue to take iron tablets extra pill and GI consultation. TIME SPENT: More than 45 minutes today. JOVANY
--- NOTE | 2016-12-31 15:08 | PN ---
DATE OF SERVICE: 11/17/16 SUBJECTIVE: The patient was admitted with COPD exacerbation, shortness of breath , hypoxemia. The patient still having some coughing and shortness of breath with minimal exertion. REVIEW OF SYSTEMS: CONSTITUTIONAL: No fever, no chills. HEENT: Normal. ENDOCRINE: No weight gain, no weight loss. CVS: No angina symptoms. No CHF symptoms. No palpitations. No atypical chest pain for CAD. Shortness of breath. No PND, no orthopnea. RESPIRATORY: Cough, no hemoptysis. GI: No nausea, no vomiting. No abdominal pain. : No hematuria. No polyuria. MUSCULOSKELETAL:. No joint swelling. PSYCHIATRIC: Not anxious. No depression. No suicidal thoughts. No homicidal thoughts. SKIN: Intact. No rash. PHYSICAL EXAMINATION: V/S: Blood pressure 114/67, respiratory rate 20, heart rate 66, temperature 97.0 , saturation 97. HEENT: Normocephalic, atraumatic. Mucosa dry. Pallor positive. No icterus. NECK: Supple. No JVD, no carotid bruit. No lymphadenopathy. LUNGS: Decreased with basilar crackles. No rales or rhonchi. HEART: S1, S2 normal. No S3. No murmur, gallop or regurgitation. ABDOMEN: Soft, nontender. Bowel sounds active. No rigidity. No rebound or guarding. No CVA tenderness. EXTREMITIES: No clubbing, cyanosis or pedal edema. MUSCULOSKELETAL: No joint swelling. NEUROLOGIC: Awake, alert, oriented times three. No focal deficit. LYMPHATIC: No lymph nodes palpable. SKIN: Intact. LABS: White count is 8.38, hemoglobin 8.1, hematocrit 25.5, platelet count 278 , sodium 134, potassium 4.6, chloride 91, bicarb 35, BUN 21, creatinine 0.81, glucose 158. ASSESSMENT: 1. CHRONIC OBSTRUCTIVE PULMONARY DISEASE EXACERBATION SECONDARY TO BRONCHITIS AND UPPER RESPIRATORY INFECTION 2. HISTORY OF CORONARY ARTERY DISEASE, STATUS POST STENT 3. CHRONIC OBSTRUCTIVE PULMONARY DISEASE 4. CONTINUED SMOKING 5. HYPERTENSION 6. DYSLIPIDEMIA 7. DEPRESSION 8. DJD OF THE SPINE 9. GERD 10. HYSTERECTOMY 11. LEFT BREAST LUMPECTOMY 12. CATARACT SURGERY PLAN: 1. Continue Rocephin, Zithromycin. 2. Lovenox for the DVT prophylaxis. 3. Out of bed to chair. 4. Activity as tolerated. TIME SPENT: More than 30 minutes MTDD
== END 2016-11-18 13:57 | disposition home or self-care (01) | DRG 153 ==
LOC: MEDSURG A 11:34
PROVIDERS: ADMIT Emergency Medicine; ATTEND Emergency Medicine
DX: J06.9 Acute upper respiratory infection, unspecified (principal); R06.02 Shortness of breath; D50.0 Iron deficiency anemia secondary to blood loss (chronic); R19.5 Other fecal abnormalities; J44.9 Chronic obstructive pulmonary disease, unspecified; R09.02 Hypoxemia; F17.210 Nicotine dependence, cigarettes, uncomplicated; I71.4 Abdominal aortic aneurysm, without rupture; J98.4 Other disorders of lung; F32.9 Major depressive disorder, single episode, unspecified; E78.5 Hyperlipidemia, unspecified; I10 Essential (primary) hypertension; M15.9 Polyosteoarthritis, unspecified; Z79.01 Long term (current) use of anticoagulants; Z79.899 Other long term (current) drug therapy
CPT/HCPCS: 36415; 80053; 81001; 82150; 82272; 82550; 82607; 82728; 82746; 82803; 83540; 83550; 83690; 83874; 83880; 84466; 84484; 85025; 85045; 87040; 87070; 87804; 93005; 93010; 94640; 94761

== ENCOUNTER 2016-12-16 08:56 | Day surgery (SDC) ==
[2016-12-16] MEDS ORDERED: ALBUTEROL 0.083% NEB NEB STA (09:59)
[2016-12-16] MEDS ORDERED: DIPRIVAN 20 ML VIAL IVP ONE (11:27)
[2016-12-16] MEDS ORDERED: VERSED ONE (11:27)
[2016-12-16 13:21] VITALS: BP 151/65; TEMP 99
--- NOTE | 2016-12-17 13:16 | OP ---
INDICATIONS FOR PROCEDURE: 71-year-old female presents for colonoscopy exam. She has a history of iron deficiency anemia and was found to have heme positive stools. MEDICATIONS: SEE ANESTHESIA NOTES. PROCEDURE: 1. ENDOSCOPY. 2. COLONOSCOPY, SNARE POLYPECTOMY. REPORT: The risks, benefits, alternatives and limitations were discussed in detail with the patient. Informed consent was obtained. After adequate sedation was achieved, the video endoscope was introduced in the posterior pharynx and esophagus under direct vision and easily advanced down to the second portion and beginning of the third portion of the duodenum. I then slowly withdrew. In the second portion of the duodenum, there was four small angiectasias. These were only a few millimeter in size. The bulb was relatively unremarkable. The antrum and body were relatively unremarkable. The antrum and body were relatively unremarkable. The scope was retroflexed to look at the cardia and fundus which revealed a hiatal hernia. The scope was anteflexed and withdrawn back through the esophagus which was unremarkable. The patient tolerated this procedure well. The patient's bed was turned and a digital rectal exam revealed good tone, no masses. A colonoscope was introduced into the rectum and advanced under direct visual guidance to the cecum. The cecum was identified by the appendiceal orifice and IC valve. At the junction of the ascending colon and cecum, there is a raised lesion about 7 mm in greatest size that appeared to be a hyperplastic type polyp. It had a central cavity. Question if this is a diverticulum. This was adjacent to the IC valve with the IC valve to the left; this was to the right of it on the same fold. I do not believe it it was a fistula tract. It appeared benign. It was not amenable to removal by snare technique as it was relatively flat with a volcano type opening. I therefore biopsied this a couple of times for histological review and had the suggestion of a pancreatic rest. I then slowly withdrew the scope in a circumferential manner examining the remaining colon. In the ascending colon there was a 6 mm sessile polyp that I removed by snare technique. At 25 cm there was a 7 or 8 mm semi sessile polyp that I removed by snare technique. In the distal sigmoid there was a benign appearing 6 or 7 mm sessile polyp that I removed by snare technique. There were a few diverticula scattered throughout the sigmoid colon. No other abnormalities noted including on retroflex view of the anal canal. The patient tolerated the procedure well with stable vital signs and pulse oximetry throughout. IMPRESSION: 1. 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 2. 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 This could have been a abnormal polyp or diverticulum. 3. Three (3) colonic polyps removed. 4. Mild sigmoid diverticulosis. RECOMMENDATIONS: 1. Iron supplementation 2. Await pathology results from the biopsies of the lesion next to the IC valve. If this is completely benign tissue, then no further investigation is warranted. If it does show a precancerous type of tissue, then consider repeat colonoscopy examination with attempted removal in three to six months. This would be considered as a first option with possible saline injection versus surgical resection. 3. If the lesion next to the IC valve is completely benign as above, then with the other polyps, I suggest a repeat colonoscopy examination again in three years, sooner if signs or symptoms were to indicate otherwise. 4. Will see her back in the office as needed but will contact her with the pathology results. CC: DR. CARLOS MANZO
== END 2016-12-16 13:13 | disposition home or self-care (01) ==
LOC: SURG 08:56
PROVIDERS: ATTEND Internal Medicine Gastroenterology
DX: R19.5 Other fecal abnormalities (principal); D12.0 Benign neoplasm of cecum; D12.2 Benign neoplasm of ascending colon; D12.5 Benign neoplasm of sigmoid colon; D50.9 Iron deficiency anemia, unspecified; K44.9 Diaphragmatic hernia without obstruction or gangrene; K57.30 Diverticulosis of large intestine without perforation or abscess without bleeding; Q27.33 Arteriovenous malformation of digestive system vessel
CPT/HCPCS: 94640

== ENCOUNTER 2018-01-07 14:55 | Inpatient (IN) | payer OTHER ==
[2018-01-07] MEDS ORDERED: TYLENOL PO PRN (15:19)
[2018-01-07] MEDS ORDERED: MORPHINE 4 MG/ML VIAL IVP PRN (15:19)
[2018-01-07] MEDS ORDERED: VISTARIL INJ IM PRN (15:19)
[2018-01-07] MEDS ORDERED: NITROSTAT SL PRN (15:19)
[2018-01-07] MEDS ORDERED: ATROPINE SULFATE PFS IVP PRN (15:19)
[2018-01-07 15:36] VITALS: BMI 20.5
[2018-01-07] MEDS: DEXTROSE 5%-1/2NS IV SOLUTION 1,000 ML IV SCH (16:07)
[2018-01-07] MEDS ORDERED: ROCEPHIN ONE (16:11)
[2018-01-07] MEDS: ROCEPHIN 1 GM in SODIUM CHLORIDE 50 ML IV SCH (16:15)
[2018-01-07] MEDS: SOLU-CORTEF 250 MG IVP SCH ×2 (16:15→21:23)
[2018-01-07] MEDS: TUSSIONEX PO PRN (16:15)
[2018-01-07] MEDS: TORADOL IVP SCH ×2 (16:15→21:23)
[2018-01-07] MEDS: ZITHROMAX PO SCH (16:16)
--- NOTE | 2018-01-07 16:26 | DI ---
EXAM: CHEST FRONTAL VIEW HISTORY: Pneumonitis. COMPARISON: 11/14/2016 FINDINGS: Heart size remains within normal limits. Moderately severe atherosclerosis. Interval reena cement of a left port catheter ending over the superior vena cava. Increased right upper lobe thick- walled cavitary appearing lesion since previous exam. Lungs are otherwise grossly clear. No pneumot horax or pleural fluid. IMPRESSION: Worsening thick-walled cavitary appearing lesion of the right upper lobe suggesting a pneumonia/absce ss.
[2018-01-07] MEDS: XOPENEX 1.25 MG NEB SCH ×2 (16:55→23:22)
[2018-01-07] MEDS ORDERED: NON-FORMULARY MEDICATION (Ondansetron Hcl [Zofran] 8 MG) PO SCH (17:00)
[2018-01-07] MEDS: PROTONIX PO SCH (18:15)
[2018-01-07] MEDS: COMBIVENT RESPIMAT INHAL SPRAY IH SCH ×2 (18:16→21:27)
[2018-01-07] MEDS ORDERED: DUONEB NEB SCH (21:00)
[2018-01-07] MEDS ORDERED: EPA PO SCH (21:00)
[2018-01-07] MEDS ORDERED: NON-FORMULARY MEDICATION (Ferrous Sulfate [Ferrous Sulfate] 325 MG) PO SCH (21:00)
[2018-01-07] MEDS ORDERED: DHA PO SCH (21:00)
[2018-01-07] MEDS ORDERED: FISH OIL PO SCH (21:00)
[2018-01-07] MEDS ORDERED: ZESTRIL PO SCH (21:00)
[2018-01-07] MEDS ORDERED: NON-FORMULARY MEDICATION (Lisinopril [Lisinopril] 20 MG) PO SCH (21:00)
[2018-01-07] MEDS: TRAVATAN Z OP SCH (21:22)
[2018-01-07] MEDS: OMEGA-3 FISH OIL PO SCH (21:22)
[2018-01-07] MEDS: FERROUS SULFATE PO SCH (21:23)
[2018-01-07] MEDS: MUCINEX PO SCH (21:23)
[2018-01-07] MEDS: ZOCOR PO SCH (21:23)
[2018-01-07] MEDS: ZOFRAN TAB PO SCH (21:23)
[2018-01-07] MEDS: TAGAMET PO SCH (21:28)
[2018-01-08] MEDS: XOPENEX 1.25 MG NEB SCH ×3 (04:46→17:57)
[2018-01-08] MEDS: SOLU-CORTEF 250 MG IVP SCH ×3 (05:43→23:04)
[2018-01-08] MEDS: PROTONIX PO SCH ×2 (05:44→16:33)
[2018-01-08] MEDS: TAGAMET PO SCH ×2 (05:44→16:32)
[2018-01-08] MEDS: TORADOL IVP SCH ×3 (05:44→20:51)
[2018-01-08] MEDS: DEXTROSE 5%-1/2NS IV SOLUTION 1,000 ML IV SCH (05:45)
[2018-01-08] MEDS: PLAVIX PO SCH (08:21)
[2018-01-08] MEDS: ROCEPHIN 1 GM in SODIUM CHLORIDE 50 ML IV SCH (08:21)
[2018-01-08] MEDS: COMBIVENT RESPIMAT INHAL SPRAY IH SCH ×4 (08:21→20:56)
[2018-01-08] MEDS: LEXAPRO PO SCH (08:22)
[2018-01-08] MEDS: ASPIRIN EC PO SCH (08:22)
[2018-01-08] MEDS: FERROUS SULFATE PO SCH ×2 (08:22→20:52)
[2018-01-08] MEDS: TRIGLIDE PO SCH (08:22)
[2018-01-08] MEDS: ZOFRAN TAB PO SCH ×4 (08:22→20:52)
[2018-01-08] MEDS: OMEGA-3 FISH OIL PO SCH ×3 (08:22→20:51)
[2018-01-08] MEDS: MUCINEX PO SCH ×2 (08:23→20:52)
[2018-01-08] MEDS: ZITHROMAX PO SCH (08:23)
[2018-01-08] MEDS: CALCIUM 500 + VIT D 200 MG TABLET PO SCH (08:23)
[2018-01-08] MEDS ORDERED: SOLU-CORTEF 250 MG IVP SCH ×2 (08:30)
[2018-01-08] MEDS ORDERED: NON-FORMULARY MEDICATION (Calcium Carbonate/Vitamin D3 [Calcium 600 + Vit D Tablet] 1 EACH PO SCH (09:00)
[2018-01-08] MEDS ORDERED: ASPIRIN EC PO SCH (09:00)
--- NOTE | 2018-01-08 09:20 | PCM.PROG ---
Attending Provider: ATTENDING PROVIDER: Dr. GREG GONZALEZ This patient is seen with Rola Nath, Nurse Practitioner. DATE OF SERVICE: 01/08/18 SUBJECTIVE: This 72 year old WHITE/ F was hospitalized 01/07/18. The patient is sitting up in bed, alert, resting comfortably. Cough is becoming more productive. Hemoglobin is low today. Will type and cross two units PRBCs. Last chemo treatment 3 weeks ago. REVIEW OF SYSTEMS: CONSTITUTIONAL: Weakness. No night sweats. No malaise, lethargy. No fever or chills. HEENT: Eyes: No visual changes. No eye pain. No eye discharge. ENT: No runny nose. No epistaxis. No sinus pain. No odynophagia. No congestion. RESPIRATORY: Cough and congestion. No hemoptysis. Shortness of breath. CARDIOVASCULAR: No angina symptoms. No CHF symptoms. No atypical chest pain for CAD. No palpitations. No orthopnea.. GASTROINTESTINAL: No abdominal pain. No nausea or vomiting. No diarrhea or constipation. No hematemesis. No hematochezia. GENITOURINARY: No urgency. No frequency. No dysuria. No hematuria. No obstructive symptoms. No discharge. No pain. No significant abnormal bleeding. MUSCULOSKELETAL: No musculoskeletal pain; no joint swelling. NEUROLOGICAL: Awake, alert, oriented to time, place and person. No headache. No neck pain. No syncope. No seizures. No dizziness. PSYCHIATRIC: Not anxious. No depression. No suicidal thoughts. No homicidal thoughts. SKIN: No rash. No lesions. No wounds. ENDOCRINE: No unexplained weight loss. No weight gain. HEMATOLOGIC/LYMPHATIC: No anemia. No purpura. No petechiae. No prolonged or excessive bleeding. No palpable lymph nodes. PHYSICAL EXAMINATION: GENERAL: The patient is awake, alert and oriented, sitting in bed in no distress. VITAL SIGNS: Temperature 98.6 F, Pulse 88, Respiratory Rate 20, BP 86/46, Pulse Ox 96% HEENT: Head normocephalic, atraumatic. Eyes: Extraocular muscles are intact. Pupils are equal, round and reactive to light and accommodation. Ears: No lesions. Nose appeared normal. Throat: No exudate or erythema. The patient is pale. NECK: Supple. No JVD, no carotid bruit. No lymphadenopathy or thyromegaly. LUNGS: Bilateral rhonchi, severe. Percussion note normal. Chest symmetrical. HEART: S1, S2, no S3. No murmurs. No cyanosis or clubbing. No ascites. Pulses: Dorsalis pedis and posterior tibial pulses +1 to +2 both sides. ABDOMEN: Soft. Non-tender. Bowel sounds active. No CVA tenderness. No mass felt. EXTREMITIES: No edema. Full range of motion of all extremities, equal. NEUROLOGIC: No focal deficit. Cranial nerves II through XII are grossly intact. No headache, no double vision or headache. SKIN: Not dry. Intact. Turgor-normal. LYMPHATIC: No palpable lymph nodes/no lymphedema. MUSCULOSKELETAL: Normal joints with no swelling. Muscle tone is normal. LAB REVIEW: 01/08/18 04:30 01/08/18 04:30 01/08/18 04:30: Sodium 137, Potassium 4.4, Chloride 99, Carbon Dioxide 29, Anion Gap 13.4, BUN 24 H, Creatinine 1.07, Estimated GFR (MDRD) 50.00, BUN/ Creatinine Ratio 22.42, Glucose 184 H D, Calcium 8.9, Total Bilirubin 0.2, AST 27, ALT 18, Alkaline Phosphatase 44 L, Total Protein 5.5 L, Albumin 1.7 L, Globulin 3.8, Albumin/Globulin Ratio 0.45 01/08/18 04:30: WBC 4.17 L, RBC 1.95 L, Hgb 6.7 L, Hct 22.1 L, MCV 113.3 H, MCH 34.4 H, MCHC 30.3 L, RDW Coeff of Nika 16.5 H, Plt Count 66 L, Immature Gran % ( Auto) 1.4, Neut % (Auto) 85.9, Lymph % (Auto) 7.0 L, [place] % (Auto) 5.5, Eos % ( Auto) 0.0, Baso % (Auto) 0.2, Immature Gran # (Auto) 0.1, Neut # (Auto) 3.6, Lymph # (Auto) 0.3 L, [place] # (Auto) 0.2 L, Eos # (Auto) 0.0, Baso # (Auto) 0.0, Anisocytosis Not present, Macrocytosis 1+ 01/07/18 18:30: Urine Color Dark, Urine Clarity Clear, Urine pH 5.5, Ur Specific [place] 1.020, Urine Protein 1+, Urine Glucose (UA) Negative, Urine Ketones Negative, Urine Blood Negative, Urine Nitrite Negative, Urine Bilirubin 1+, Urine Urobilinogen 1.0, Ur Leukocyte Esterase Negative, Urine Microscopic RBC 0-2, Urine Microscopic WBC 5-10, Ur Squamous Epith Cells 2-5, Ur Transition Epith Cell 2-5, Urine Bacteria Trace, Urine Mucus Trace 01/07/18 17:50: Influ A Molecular Assay Negative by naat, Influ B Molecular Assay Negative by naat 01/07/18 16:30: Sodium 138, Potassium 3.8, Chloride 97 L, Carbon Dioxide 28, Anion Gap 16.8, BUN 15, Creatinine 0.75, Estimated GFR (MDRD) 76.00, BUN/ Creatinine Ratio 20.00, Glucose 116 H, Calcium 9.5, Total Bilirubin 0.7, AST 18 , ALT 10 L, Alkaline Phosphatase 49 L, Total Protein 6.2, Albumin 2.0 L, Globulin 4.2, Albumin/Globulin Ratio 0.48 01/07/18 16:26: WBC 5.23, RBC 2.17 L, Hgb 7.6 L, Hct 23.9 L, MCV 110.1 H, MCH 35.0 H, MCHC 31.8, RDW Coeff of [place] 16.2 H, Plt Count 69 L, Immature Gran % ( Auto) 1.7, Neut % (Auto) 78.6, Lymph % (Auto) 8.8 L, [place] % (Auto) 10.5 H, Eos % (Auto) 0.4, Baso % (Auto) 0.0, Immature Gran # (Auto) 0.1, Neut # (Auto) 4.1, Lymph # (Auto) 0.5 L, [place] # (Auto) 0.6, Eos # (Auto) 0.0, Baso # (Auto) 0.0 01/07/18 15:19: Puncture Site Lrad, O2 Saturation 90.0 L, ABG pH 7.443, ABG pCO2 44.8, ABG pO2 58.0 L*, ABG HCO3 30.6 H, ABG Total CO2 32 H, ABG Base Excess 7 H, [place] Test +, FiO2 % 21.0 ASSESSMENT: 1. PNEUMONIA 2. ANEMIA 3. DEHYDRATION 4. RIGHT LUNG CARCINOMA PLAN: 1. Solucortef q.6 2. Type and cross 2 units 3. Hold Zestril 4. Vancomycin 500 mg q12. IV 5. Continue Morphine p.r.n. 6. Continue Toradol Plan and coordination of the patient's care discussed in the presence of Flower Picker and nurse. CONDITION: Stable SCRIBED BY: JEFFREY ODONNELL Legal Writing Professor scribed while in presence of service performed by Dr. Gonzalez/Rola Nath APRN on 01/08/18 ([id number])
[2018-01-08] MEDS: VANCOMYCIN 1 GM in SODIUM CHLORIDE 250 ML IV SCH (10:44)
[2018-01-08] MEDS: XANAX PO PRN (19:47)
[2018-01-08] MEDS: TRAVATAN Z OP SCH (20:50)
[2018-01-08] MEDS: ZOCOR PO SCH (20:51)
[2018-01-08] MEDS: NORCO 7.5-325 PO PRN (20:52)
[2018-01-08] MEDS: TUSSIONEX PO PRN (20:58)
[2018-01-09] MEDS: XOPENEX 1.25 MG NEB SCH ×4 (00:49→17:10)
[2018-01-09] MEDS: DEXTROSE 5%-1/2NS IV SOLUTION 1,000 ML IV SCH ×2 (02:34→17:58)
[2018-01-09] MEDS ORDERED: TUSSIONEX PO STA (03:27)
[2018-01-09] MEDS: TAGAMET PO SCH ×2 (05:59→16:39)
[2018-01-09] MEDS: PROTONIX PO SCH ×2 (05:59→16:39)
[2018-01-09] MEDS: TORADOL IVP SCH ×3 (06:00→22:07)
[2018-01-09] MEDS: SOLU-CORTEF 250 MG IVP SCH ×3 (06:01→22:06)
[2018-01-09] MEDS: ROCEPHIN 1 GM in SODIUM CHLORIDE 50 ML IV SCH (08:48)
[2018-01-09] MEDS: PLAVIX PO SCH (08:49)
[2018-01-09] MEDS: LEXAPRO PO SCH (08:49)
[2018-01-09] MEDS: ZOFRAN TAB PO SCH ×4 (08:49→22:01)
[2018-01-09] MEDS: TRIGLIDE PO SCH (08:49)
[2018-01-09] MEDS: CALCIUM 500 + VIT D 200 MG TABLET PO SCH (08:49)
[2018-01-09] MEDS: OMEGA-3 FISH OIL PO SCH ×3 (08:49→22:01)
[2018-01-09] MEDS: FERROUS SULFATE PO SCH ×2 (08:49→22:01)
[2018-01-09] MEDS: ZITHROMAX PO SCH (08:49)
[2018-01-09] MEDS: COMBIVENT RESPIMAT INHAL SPRAY IH SCH ×4 (08:49→22:00)
[2018-01-09] MEDS: MUCINEX PO SCH ×2 (08:49→22:01)
[2018-01-09] MEDS: ASPIRIN EC PO SCH (09:51)
[2018-01-09] MEDS: VANCOMYCIN 1 GM in SODIUM CHLORIDE 250 ML IV SCH (09:51)
[2018-01-09] MEDS: XANAX PO PRN (17:41)
[2018-01-09] MEDS: TUSSIONEX PO PRN (17:41)
[2018-01-09] MEDS: NORCO 7.5-325 PO PRN (17:41)
[2018-01-09] MEDS ORDERED: MIRALAX PO PRN (19:07)
[2018-01-09] MEDS: TRAVATAN Z OP SCH (22:00)
[2018-01-09] MEDS: ZOCOR PO SCH (22:02)
[2018-01-10] MEDS: XOPENEX 1.25 MG NEB SCH ×4 (00:52→18:23)
[2018-01-10] MEDS: PROTONIX PO SCH ×2 (05:47→16:10)
[2018-01-10] MEDS: TAGAMET PO SCH ×2 (05:47→16:10)
[2018-01-10] MEDS: TORADOL IVP SCH ×3 (05:47→21:32)
[2018-01-10] MEDS: COMBIVENT RESPIMAT INHAL SPRAY IH SCH ×4 (09:19→21:37)
[2018-01-10] MEDS: ROCEPHIN 1 GM in SODIUM CHLORIDE 50 ML IV SCH (09:19)
[2018-01-10] MEDS: NICODERM 21 MG TD SCH (09:19)
[2018-01-10] MEDS: OMEGA-3 FISH OIL PO SCH ×3 (09:20→21:37)
[2018-01-10] MEDS: SOLU-CORTEF 250 MG IVP SCH ×2 (09:20→21:27)
[2018-01-10] MEDS: ASPIRIN EC PO SCH (09:20)
[2018-01-10] MEDS: TRIGLIDE PO SCH (09:20)
[2018-01-10] MEDS: PLAVIX PO SCH (09:20)
[2018-01-10] MEDS: XANAX PO PRN ×3 (09:20→21:45)
[2018-01-10] MEDS: ZOFRAN TAB PO SCH ×4 (09:20→21:37)
[2018-01-10] MEDS: FERROUS SULFATE PO SCH ×2 (09:21→21:37)
[2018-01-10] MEDS: MUCINEX PO SCH ×2 (09:21→21:36)
[2018-01-10] MEDS: CALCIUM 500 + VIT D 200 MG TABLET PO SCH (09:21)
[2018-01-10] MEDS: LEXAPRO PO SCH (09:21)
[2018-01-10] MEDS: VANCOMYCIN 1 GM in SODIUM CHLORIDE 250 ML IV SCH (10:29)
[2018-01-10] MEDS: TUSSIONEX PO PRN (10:29)
[2018-01-10] MEDS: NORCO 7.5-325 PO PRN ×2 (10:29→21:45)
[2018-01-10] MEDS ORDERED: KAYEXALATE SUSP PO STA (14:00)
[2018-01-10] MEDS: TRAVATAN Z OP SCH (21:35)
[2018-01-10] MEDS: ZOCOR PO SCH (21:35)
[2018-01-11] MEDS: XOPENEX 1.25 MG NEB SCH ×3 (00:29→11:11)
[2018-01-11] MEDS: PROTONIX PO SCH (05:45)
[2018-01-11] MEDS: TAGAMET PO SCH (05:45)
[2018-01-11] MEDS: TORADOL IVP SCH (05:51)
[2018-01-11] MEDS ORDERED: FOSAMAX PO SCH (06:30)
[2018-01-11] MEDS: ROCEPHIN 1 GM in SODIUM CHLORIDE 50 ML IV SCH (09:11)
[2018-01-11] MEDS: COMBIVENT RESPIMAT INHAL SPRAY IH SCH (09:11)
[2018-01-11] MEDS: ZOFRAN TAB PO SCH (09:12)
[2018-01-11] MEDS: ASPIRIN EC PO SCH (09:12)
[2018-01-11] MEDS: TRIGLIDE PO SCH (09:12)
[2018-01-11] MEDS: OMEGA-3 FISH OIL PO SCH (09:12)
[2018-01-11] MEDS: LEXAPRO PO SCH (09:12)
[2018-01-11] MEDS: FERROUS SULFATE PO SCH (09:12)
[2018-01-11] MEDS: MUCINEX PO SCH (09:12)
[2018-01-11] MEDS: PLAVIX PO SCH (09:12)
[2018-01-11] MEDS: CALCIUM 500 + VIT D 200 MG TABLET PO SCH (09:12)
[2018-01-11] MEDS: SOLU-CORTEF 250 MG IVP SCH (09:13)
[2018-01-11] MEDS: NICODERM 21 MG TD SCH (09:15)
--- NOTE | 2018-01-11 09:35 | PCM.PROG ---
Attending Provider: ATTENDING PROVIDER: Dr. GREG WADDELL This patient is seen with Rola Nath, Nurse Practitioner. DATE OF SERVICE: 01/11/18 SUBJECTIVE: This 72 year old WHITE/ F was hospitalized 01/07/18. The patient is sitting up in bed, alert. She states she is feeling better. She has been up to bathroom. She has been eating well. REVIEW OF SYSTEMS: CONSTITUTIONAL: Weakness. No night sweats. No malaise, lethargy. No fever or chills. HEENT: Eyes: No visual changes. No eye pain. No eye discharge. ENT: No runny nose. No epistaxis. No sinus pain. No odynophagia. No congestion. RESPIRATORY: Cough, no congestion. No hemoptysis. No shortness of breath. CARDIOVASCULAR: No angina symptoms. No CHF symptoms. No atypical chest pain for CAD. No palpitations. No orthopnea.. GASTROINTESTINAL: No abdominal pain. No nausea or vomiting. No diarrhea or constipation. No hematemesis. No hematochezia. GENITOURINARY: No urgency. No frequency. No dysuria. No hematuria. No obstructive symptoms. No discharge. No pain. No significant abnormal bleeding. MUSCULOSKELETAL: No musculoskeletal pain; no joint swelling. NEUROLOGICAL: Awake, alert, oriented to time, place and person. No headache. No neck pain. No syncope. No seizures. No dizziness. PSYCHIATRIC: Not anxious. No depression. No suicidal thoughts. No homicidal thoughts. SKIN: No rash. No lesions. No wounds. ENDOCRINE: No unexplained weight loss. No weight gain. HEMATOLOGIC/LYMPHATIC: No anemia. No purpura. No petechiae. No prolonged or excessive bleeding. No palpable lymph nodes. PHYSICAL EXAMINATION: GENERAL: The patient is awake, alert and oriented, sitting in bed in no distress. VITAL SIGNS: Temperature 98.3 F, Pulse 103, Respiratory Rate 24, BP 137/78, Pulse Ox 93% HEENT: Head normocephalic, atraumatic. Eyes: Extraocular muscles are intact. Pupils are equal, round and reactive to light and accommodation. Ears: No lesions. Nose appeared normal. Throat: No exudate or erythema. NECK: Supple. No JVD, no carotid bruit. No lymphadenopathy or thyromegaly. LUNGS: Diminished breath sounds. Right upper lobe rhonchi. Percussion note normal. Chest symmetrical. HEART: S1, S2, no S3. No murmurs. No cyanosis or clubbing. No ascites. Pulses: Dorsalis pedis and posterior tibial pulses +1 to +2 both sides. ABDOMEN: Soft. Non-tender. Bowel sounds active. No CVA tenderness. No mass felt. EXTREMITIES: No edema. Full range of motion of all extremities, equal. NEUROLOGIC: No focal deficit. Cranial nerves II through XII are grossly intact. No headache, no double vision or headache. SKIN: Not dry. Intact. Turgor-normal. LYMPHATIC: No palpable lymph nodes/no lymphedema. MUSCULOSKELETAL: Normal joints with no swelling. Muscle tone is normal. LAB REVIEW: 01/11/18 05:08 01/11/18 05:08 01/11/18 05:08: Sodium 141, Potassium 4.2, Chloride 102, Carbon Dioxide 30, Anion Gap 13.2, BUN 26 H, Creatinine 1.22, Estimated GFR (MDRD) 43.00, BUN/ Creatinine Ratio 21.31, Glucose 113, Calcium 8.6, Total Bilirubin 0.4, AST 16, ALT 25, Alkaline Phosphatase 49 L, Total Protein 5.3 L, Albumin 1.9 L, Globulin 3.4, Albumin/Globulin Ratio 0.56 01/11/18 05:08: WBC 8.11, RBC 2.96 L, Hgb 9.7 L, Hct 30.2 L, MCV 102.0 H, MCH 32.8 H, MCHC 32.1, RDW Coeff of [place]ika 21.4 H, Plt Count 93 L, Immature Gran % ( Auto) 2.1, Neut % (Auto) 87.6, Lymph % (Auto) 5.3 L, [place] % (Auto) 4.9, Eos % ( Auto) 0.0, Baso % (Auto) 0.1, Immature Gran # (Auto) 0.2, Neut # (Auto) 7.1 H, Lymph # (Auto) 0.4 L, [place] # (Auto) 0.4, Eos # (Auto) 0.0, Baso # (Auto) 0.0 ASSESSMENT: 1. PNEUMONIA, RIGHT UPPER LOBE 2. ANEMIA 3. DEHYDRATION, RESOLVED 4. RIGHT LUNG CARCINOMA PLAN: 1. Discharge home. 2. She has appointment with Dr. Cordero tomorrow for chemotherapy. 3. Duonebs q.6hr has neb machine at home. 4. The patient will be seen or Thursday in our office if she doesn't see Dr. Cordero. 5. Keflex 500 mg t.i.d. for 10 days. 6. Prednisone 20 mg b.i.d. for 5 days. 7. Tussionex one teaspoon p.o. b.i.d. Plan and coordination of the patient's care discussed in the presence of Metal Fabricator Helper and nurse. CONDITION: Stable SCRIBED BY: JEFFREY ODONNELL Paralegal scribed while in presence of service performed by Dr. Waddell/Rola Nath APRN on 01/11/18 ([id number])
[2018-01-11] MEDS: VANCOMYCIN 1 GM in SODIUM CHLORIDE 250 ML IV SCH (10:12)
[2018-01-11 10:30] VITALS: BP 110/63; TEMP 98.1
--- NOTE | 2018-01-11 11:34 | CM.DICTOOL ---
ADMISSION: 01/07/18 14:55 DISCHARGE: 01/11/18 DATE OF SERVICE: 01/11/18 FINAL DIAGNOSIS ACUTE PNEUMONIA, RIGHT UPPER LOBE DYSPNEA LUNG CA - RADIATION COMPLETE; CHEMO IN PROGRESS (DR. ARRIAGA) ANEMIA (TRANSFUSIONS X2, 01/08/18) HTN DYSLIPIDEMIA INFRARENAL FUSIFORM AAA, 3.3 CM (PER CT 2012, 2015 AND 2016) COPD CERVICAL CANCER S/P HYSTERECTOMY DIVERTICULOSIS ANXIETY/DEPRESSION OSTEOARTHRITIS DJD SPINE GLAUCOMA CATARACT SURGERY LEFT EYE ENDARTECTOMY LEFT BREAST LUMPECTOMY HYSTERECTOMY CURRENT EVERY DAY SMOKER LAST VITALS Temp Pulse Resp BP Pulse Ox 98.1 F 95 H 14 110/63 96 01/11/18 10:00 01/11/18 10:00 01/11/18 10:00 01/11/18 10:00 01/11/18 10:00 TAKE THESE MEDICATIONS AT HOME Albuterol/Ipratropium (Combivent Respimat Inhal [place]) 1 spray IH BID PRN Last Admin: 01/11/18 09:11 Dose: 1 spray Alendronate Sodium (Fosamax) 70 mg PO Mo@0630 [facility] Last Admin: 01/11/18 06:38 Dose: 70 mg Alprazolam (Xanax) 0.5 mg PO TID PRN PRN Reason: Anxiety Last Admin: 01/10/18 21:45 Dose: 0.5 mg Aspirin (Aspirin Ec) 81 mg PO DAILYWM [facility] Last Admin: 01/11/18 09:12 Dose: 81 mg Calcium/Vitamin D (Calcium 500 + Vit D 200 Mg Tablet) 1 each PO DAILY [facility] Last Admin: 01/11/18 09:12 Dose: 1 each Cimetidine (Tagamet) 800 mg PO BIDAC [facility] Last Admin: 01/11/18 05:45 Dose: 800 mg Clopidogrel Bisulfate (Plavix) 75 mg PO DAILY [facility] Last Admin: 01/11/18 09:12 Dose: 75 mg Dorzolamide HCL/Timolol Maleat 1 Drop EACH EYE BID Escitalopram Oxalate (Lexapro) 10 mg PO DAILY [facility] Last Admin: 01/11/18 09:12 Dose: 10 mg Fenofibrate (Triglide) 160 mg PO DAILY [facility] Last Admin: 01/11/18 09:12 Dose: 160 mg Ferrous Sulfate (Ferrous Sulfate) 324 mg PO BID [facility] Last Admin: 04/23/18 09:12 Dose: 324 mg Fish Oil ([place]-3 Fish Oil) 1,000 mg PO TID [facility] Last Admin: 01/11/18 09:12 Dose: 1,000 mg Guaifenesin (Mucinex) 600 mg PO Q12HR [facility] Last Admin: 01/11/18 09:12 Dose: 600 mg Hydrocodone Bitart/Acetaminophen ([place] 7.5-325) 1 tab PO TID PRN PRN Reason: Mild Pain Last Admin: 01/10/18 21:45 Dose: 1 tab Hydroxyzine HCl (Vistaril Inj) 25 mg IM Q4H PRN PRN Reason: Nausea/Vomiting/Restlessness Last Admin: 01/10/18 21:45 Dose: 25 mg Ipratropium/Albuterol Neb (Duoneb) 1 Vial QID Lisinopril 20 mg PO BID Ondansetron HCl (Zofran Tab) 8 mg PO QID [facility] Last Admin: 01/11/18 09:12 Dose: 8 mg Pantoprazole Sodium (Protonix) 40 mg PO BIDAC [facility] Last Admin: 01/11/18 05:45 Dose: 40 mg Simvastatin (Zocor) 40 mg PO BEDTIME [facility] Last Admin: 01/10/18 21:35 Dose: 40 mg Travoprost (Travatan Z) 1 drop OP BEDTIME [facility] Last Admin: 01/10/18 21:35 Dose: 1 drop CHANGES TO MEDICATIONS Duonebs 1 Vial INH QID (changed from TID) Combivent 2 sprays IH BID PRN (changed from TID scheduled) See new prescriptions ALLERGIES No Known Allergies Allergy (Unverified 11/15/16 02:42) NEW PRESCRIPTIONS: RESUME YOUR HOME MEDICATIONS PER LIST PROVIDED BY THE NURSING STAFF TAKE YOUR COMBIVENT INHALER (IPRATROPIUM/ALBUTEROL) TWICE DAILY IF NEEDED FOR WHEEZING AND/OR COUGHING NEW PRESCRIPTIONS ALBUTEROL/IPRATROPIUM (DUONEBS) EVERY 6 HOURS PREDNISONE 20 MG, TAKE ONE TABLET BY MOUTH WITH FOOD TWICE DAILY FOR 5 DAYS TUSSIONEX 5 ML (ONE TEASPOON) BY MOUTH TWICE DAILY IF NEEDED FOR COUGHING KEFLEX 500 MG, TAKE ONE CAPSULE BY MOUTH THREE TIMES DAILY FOR 10 DAYS SMOKING: CURRENT EVERYDAY SMOKER THE PATIENT HAS RECEIVED EDUCATION/INFORMATION FOR COMPLETE SMOKING CESSATION. SHE IS AWARE OF THE ADVERSE EFFECTS ON HER CARDIOPULMONARY/CARDIOVASCULAR HEALTH CONTINUING THIS HABIT WILL CAUSE. SHE HAS NOT VERBALIZED ANY INTENT TO STOP SMOKING AT THIS TIME. WE WILL CONTINUE TO ENCOURAGE COMPLETE CESSATION DURING HER OFFICE VISITS. DISEASE SPECIFIC EDUCATION: PNEUMONITIS DEHYDRATION ANEMIA BLOOD TRANSFUSION HOME MEDICATIONS NEW PRESCRIPTIONS ADVERSE EFFECTS OF [facility] USE OF STEROIDS FOLLOW UP WITH ONCOLOGIST FOLLOW UP THROUGH THE OFFICE LAB REVIEW: 01/11/18 05:08 01/11/18 05:08 01/11/18 05:08: Sodium 141, Potassium 4.2, Chloride 102, Carbon Dioxide 30, Anion Gap 13.2, BUN 26 H, Creatinine 1.22, Estimated GFR (MDRD) 43.00, BUN/ Creatinine Ratio 21.31, Glucose 113, Calcium 8.6, Total Bilirubin 0.4, AST 16, ALT 25, Alkaline Phosphatase 49 L, Total Protein 5.3 L, Albumin 1.9 L, Globulin 3.4, Albumin/Globulin Ratio 0.56 01/11/18 05:08: WBC 8.11, RBC 2.96 L, Hgb 9.7 L, Hct 30.2 L, MCV 102.0 H, MCH 32.8 H, MCHC 32.1, RDW Coeff of Nika 21.4 H, Plt Count 93 L, Immature Gran % ( Auto) 2.1, Neut % (Auto) 87.6, Lymph % (Auto) 5.3 L, [place] % (Auto) 4.9, Eos % ( Auto) 0.0, Baso % (Auto) 0.1, Immature Gran # (Auto) 0.2, Neut # (Auto) 7.1 H, Lymph # (Auto) 0.4 L, [place] # (Auto) 0.4, Eos # (Auto) 0.0, Baso # (Auto) 0.0 PLAN: DISCHARGE HOME TODAY RETURN TO SEE DR. GONZALEZ IN HIS OFFICE ON 01/15/18 AT 9:30 A.M. KEEP ALL APPOINTMENTS WITH DR. ARRIAGA NEXT APPOINTMENT IS SCHEDULED ON 01/18/18 AT 3 P.M. TODAY'S LABS HAVE BEEN FAXED TO DR. ARRIAGA'S OFFICE FOR YOUR RECORDS RESUME YOUR HOME MEDICATIONS PER LIST PROVIDED BY THE NURSING STAFF TAKE YOUR COMBIVENT INHALER (IPRATROPIUM/ALBUTEROL) TWICE DAILY IF NEEDED FOR WHEEZING AND/OR COUGHING NEW PRESCRIPTIONS ALBUTEROL/IPRATROPIUM (DUONEBS) EVERY 6 HOURS PREDNISONE 20 MG, TAKE ONE TABLET BY MOUTH WITH FOOD TWICE DAILY FOR 5 DAYS TUSSIONEX 5 ML (ONE TEASPOON) BY MOUTH TWICE DAILY IF NEEDED FOR COUGHING KEFLEX 500 MG, TAKE ONE CAPSULE BY MOUTH THREE TIMES DAILY FOR 10 DAYS ACTIVITY GET PLENTY OF REST AT HOME. GRADUALLY INCREASE YOUR ACTIVITY LEVEL ACCORDING TO YOUR TOLERATION DIET REGULAR TOLERATED SUMMARY THE PATIENT IS ALERT AND ORIENTED X3. SHE CURRENTLY RESIDES AT HOME WITH HER SON AND DESIRES TO RETURN THERE AT DISCHARGE. SHE HAS BEEN INDEPENDENT WITH ADL 'S. SHE HAS AN OLDER NEBULIZER AT HOME FOR USE. HER SKIN TURGOR IS FAIR TO GOOD. THE ELASTICITY IS REDUCED. THE SKIN TO HER HANDS IS SHINY AND LOOSE WITH A FRAGILE APPEARANCE. SHE HAS NO DECUBITUS ULCERS AT DISCHARGE. HYDRATION AND NUTRITIONAL STATUS ARE FAIR TO GOOD WELL. MS. LITTLEJOHN IS AWARE AND AGREEABLE FOR DISCHARGE PLANS TODAY. SHE HAD AN APPOINTMENT TO HAVE LABS DRAWN FOR DR. ARRIAGA. WE HAVE FAXED TODAY'S LAB RESULTS TO HIS OFFICE. SHE HAS BEEN INSTRUCTED BY DR. ARRIAGA'S OFFICE TO KEEP HER APPOINTMENT FOR 01/18/18 AT 3 P.M. WE WILL ALSO FOLLOW HER THROUGH THE OFFICE AT THE END OF THIS WEEK (01/15/18). CURRENT CODE STATUS FULL CODE AMI RINALDI APRN GREG GONZALEZ M.D.
--- NOTE | 2018-01-12 10:35 | PN ---
DATE OF SERVICE: 01/11/18 SUBJECTIVE: With history of C of lung right side on chemotherapy and radiation was hospitalized with bilateral wheezing with acute bronchitis. The patient was treated with antibiotics and steroids. Her condition has improved and her appetite has improved. There is no audible wheezing without stethoscope. PHYSICAL EXAMINATION: HEENT: Head normocephalic, atraumatic. Eyes: Extraocular muscles are intact. Pupils are equal, round and reactive to light and accommodation. Ears: No lesions. Nose appeared normal. Throat: No exudate or erythema. NECK: Supple. No JVD, no carotid bruit. No lymphadenopathy or thyromegaly. LUNGS: Very faint expiratory wheeze otherwise clear to auscultation. Percussion note normal. Chest symmetrical. HEART: S1, S2, no S3. No murmurs. No cyanosis or clubbing. No ascites. Pulses: Dorsalis pedis and posterior tibial pulses +1 to +2 both sides. ABDOMEN: Soft. Nontender. Bowel sounds active. No CVA tenderness. No mass felt. EXTREMITIES: No edema. Full range of motion of all extremities, equal. NEUROLOGIC: No focal deficit. Cranial nerves II through XII are grossly intact. No headache, no double vision or headache. SKIN: Not dry. Intact. Turgor - normal. LYMPHATIC: No palpable lymph nodes/no lymphedema. MUSCULOSKELETAL: Normal joints with no swelling. Muscle tone is normal. PLAN: 1. The patient will be discharged on steroids and antibiotics 2. Nutritional status stressed on her 3. She is strongly advised to quit smoking, counseling for smoking done CONDITION: Stable. TIME SPENT: More than 30 minutes. Plan and coordination of the patient's care discussed in the presence of nurse. JOVANY
--- NOTE | 2018-01-14 10:55 | PN ---
DATE OF SERVICE: 01/09/18 SUBJECTIVE: 72-year-old white female. She states she is feeling much better. She received 2 units of PRBCs yesterday with hemoglobin 6.7. This morning is 9.1. Her color has improved. She is less pale. She is less short of breath. She is sitting up in bed with no oxygen today and oxygen saturation 95%. She states that she does feel like eating some. We did receive her chest CT that was done at [facility] on Thursday which showed an infectious process around her malignant lesion in the right upper lobe. REVIEW OF SYSTEMS: CONSTITUTIONAL: Improving weakness. No night sweats. No malaise, lethargy. No fever or chills. HEENT: Eyes: No visual changes. No eye pain. No eye discharge. ENT: No runny nose. No epistaxis. No sinus pain. No sore throat. No odynophagia. No congestion. RESPIRATORY: Positive for cough. No congestion. No hemoptysis. No shortness of breath. CARDIOVASCULAR: No angina symptoms. No CHF symptoms. No atypical chest pain for CAD. No palpitations. No orthopnea. GASTROINTESTINAL: No abdominal pain. No nausea or vomiting. No diarrhea or constipation. No hematemesis. No hematochezia. GENITOURINARY: No urgency. No frequency. No dysuria. No hematuria. No obstructive symptoms. No discharge. No pain. No significant abnormal bleeding. MUSCULOSKELETAL: No musculoskeletal pain; no joint swelling. NEUROLOGICAL: No headache. No neck pain. No syncope. No seizures. No dizziness. PSYCHIATRIC: Not anxious. No depression. No suicidal thoughts. No homicidal thoughts. SKIN: No rash. No lesions. No wounds. ENDOCRINE: No unexplained weight loss. No weight gain. HEMATOLOGIC/LYMPHATIC: No anemia. No purpura. No petechiae. No prolonged or excessive bleeding. No palpable lymph nodes. PHYSICAL EXAMINATION: VITAL SIGNS: Temperature 97.4, heart rate 96, respirations 16, BP 121/71, pulse ox 95% on room air. HEENT: Head normocephalic, atraumatic. Eyes: Extraocular muscles are intact. Pupils are equal, round and reactive to light and accommodation. Ears: No lesions. Nose appeared normal. Throat: No exudate or erythema. NECK: Supple. No JVD, no carotid bruit. No lymphadenopathy or thyromegaly. LUNGS: Diminished breath sounds bilaterally more significantly right upper lobe. No wheezing. Percussion note normal. Chest symmetrical. HEART: S1, S2, no S3. No murmurs. No cyanosis or clubbing. No ascites. Pulses: Dorsalis pedis and posterior tibial pulses +1 to +2 both sides. ABDOMEN: Soft. Nontender. Bowel sounds active. No CVA tenderness. No mass felt. EXTREMITIES: No edema. Full range of motion of all extremities, equal. NEUROLOGIC: No focal deficit. Cranial nerves II through XII are grossly intact. No headache, no double vision or headache. SKIN: Color has improved. Warm and dry. Intact. Turgor - normal. LYMPHATIC: No palpable lymph nodes/no lymphedema. MUSCULOSKELETAL: Normal joints with no swelling. Muscle tone is normal. LABS: Hemoglobin 9.1, hematocrit 28.2, white count 5.6, platelets 74. Sodium 132, potassium 4.5, BUN 25, creatinine 1.16. ASSESSMENT: 1. ACUTE PNEUMONITIS 2. RIGHT UPPER LOBE LUNG CANCER 3. COPD 4. DEHYDRATION WHICH HAS RESOLVED 5. CONSTIPATION PLAN: 1. She will get Miralax one capful today as she has not had a bowel movement. 2. Will D/C her IV fluids as she is eating well and drinking well. 3. Her wheezing has significantly improved. I will decrease the Solu-Cortef to 125 mg q.12hr. We discussed her getting up and about today if she feels like it and anticipate discharge within the next couple of days. TIME SPENT: More than 30 minutes. Plan and coordination of the patient's care discussed in the presence of nurse. JOVANY
--- NOTE | 2018-01-14 13:47 | DS ---
DATE OF SERVICE: 01/11/18 FINAL DIAGNOSIS: 1. ACUTE PNEUMONIA, RIGHT UPPER LOBE 2. DYSPNEA 3. LUNG CA - RADIATION COMPLETE; CHEMO IN PROGRESS (DR. ARRIAGA) 4. ANEMIA (TRANSFUSIONS X2, 01/08/18) 5. HTN 6. DYSLIPIDEMIA 7. INFRARENAL FUSIFORM AAA, 3.3 CM (PER CT 2012, 2016 AND 2017) 8. COPD 9. CERVICAL CANCER S/P HYSTERECTOMY 10. DIVERTICULOSIS 11. ANXIETY/DEPRESSION 12. 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 GLAUCOMA 15. CATARACT SURGERY LEFT EYE 16. ENDARTERECTOMY 17. LEFT BREAST LUMPECTOMY 18. HYSTERECTOMY 19. CURRENT EVERY DAY SMOKER DISCHARGE INSTRUCTIONS: 1. RETURN TO SEE DR. GONZALEZ IN HIS OFFICE ON 01/15/18 AT 9:30 A.M. 2. KEEP ALL APPOINTMENTS WITH DR. ARRIAGA - NEXT APPOINTMENT IS SCHEDULED ON AT 3 P.M. TODAY'S LABS HAVE BEEN FAXED TO DR. ARRIAGA'S OFFICE FOR YOUR RECORDS MEDICATIONS AT DISCHARGE: 1. Albuterol/Ipratropium (Combivent Respimat Inhal [place]) 1 spray IH BID PRN 2. Alendronate Sodium (Fosamax) 70 mg PO Mo@0630 [facility] 3. Alprazolam (Xanax) 0.5 mg PO TID PRN 4. Aspirin (Aspirin Ec) 81 mg PO DAILYWM [facility] 5. Calcium/Vitamin D (Calcium 500 + Vit D 200 Mg Tablet) 1 each PO DAILY [facility] 6. Cimetidine (Tagamet) 800 mg PO BIDAC [facility] 7. Clopidogrel Bisulfate (Plavix) 75 mg PO DAILY [facility] 8. Dorzolamide HCL/Timolol Maleat 1 Drop EACH EYE BID 9. Escitalopram Oxalate (Lexapro) 10 mg PO DAILY [facility] 10. Fenofibrate (Triglide) 160 mg PO DAILY [facility] 11. Ferrous Sulfate (Ferrous Sulfate) 324 mg PO BID [facility] 12. Fish Oil ([place]-3 Fish Oil) 1,000 mg PO TID [facility] 13. Guaifenesin (Mucinex) 600 mg PO Q12HR [facility] 14. Hydrocodone Bitart/Acetaminophen ([place] 7.5-325) 1 tab PO TID PRN 15. Hydroxyzine HCl (Vistaril Inj) 25 mg IM Q4H PRN 16. Ipratropium/Albuterol Neb (Duoneb) 1 Vial QID 17. Lisinopril 20 mg PO BID 18. Ondansetron HCl (Zofran Tab) 8 mg PO QID [facility] 19. Pantoprazole Sodium (Protonix) 40 mg PO BIDAC [facility] 20. Simvastatin (Zocor) 40 mg PO BEDTIME [facility] 21. Travoprost (Travatan Z) 1 drop OP BEDTIME CHANGES TO MEDICATIONS: 1. Duonebs 1 Vial INH QID (changed from TID) 2. Combivent 2 sprays IH BID PRN (changed from TID scheduled) TAKE YOUR COMBIVENT INHALER (IPRATROPIUM/ALBUTEROL) TWICE DAILY IF NEEDED FOR WHEEZING AND/OR COUGHING NEW PRESCRIPTIONS: 1. ALBUTEROL/IPRATROPIUM (DUONEBS) EVERY 6 HOURS 2. PREDNISONE 20 MG, TAKE ONE TABLET BY MOUTH WITH FOOD TWICE DAILY FOR 5 DAYS 3. TUSSIONEX 5 ML (ONE TEASPOON) BY MOUTH TWICE DAILY IF NEEDED FOR COUGHING 4. KEFLEX 500 MG, TAKE ONE CAPSULE BY MOUTH THREE TIMES DAILY FOR 10 DAYS DIET INSTRUCTIONS: REGULAR TOLERATED ACTIVITY: GET PLENTY OF REST AT HOME. GRADUALLY INCREASE YOUR ACTIVITY LEVEL ACCORDING TO YOUR TOLERATION SMOKING: Current every day smoker. DISEASE SPECIFIC EDUCATION: PNEUMONITIS DEHYDRATION ANEMIA BLOOD TRANSFUSION HOME MEDICATIONS NEW PRESCRIPTIONS ADVERSE EFFECTS OF COMPOUND FINISHER USE OF STEROIDS FOLLOW UP WITH ONCOLOGIST FOLLOW UP THROUGH THE OFFICE THE PATIENT HAS RECEIVED EDUCATION/INFORMATION FOR COMPLETE SMOKING CESSATION. SHE IS AWARE OF THE ADVERSE EFFECTS ON HER CARDIOPULMONARY/CARDIOVASCULAR HEALTH CONTINUING THIS HABIT WILL CAUSE. SHE HAS NOT VERBALIZED ANY INTENT TO STOP SMOKING AT THIS TIME. WE WILL CONTINUE TO ENCOURAGE COMPLETE CESSATION DURING HER OFFICE VISITS. HOSPITAL COURSE: This is a 72-year-old white female who was a direct admit from our office. She presented to our office with cough, congestion, extreme weakness and shortness of breath. She is a cancer patient. She currently has cancer of the right upper lobe. She just finished her radiation treatments last week. She is still undergoing chemo however she has not had a chemo treatment for the past two weeks due to thrombocytopenia. Her radiation physician's assistant passenger locomotive engineer placed her on Augmentin and Mucinex for her cough and congestion; however this has failed and she presents with worsening weakness. She was subsequently admitted from our office. We got the results of the previous chest CT which showed a right upper lobe nodule with surrounding infection. Chest x-ray confirmed this. She was admitted, placed on Rocephin 1 gm IV daily along with Zithromax 500 mg p.o. daily for three days and then started on Vancomycin as well. She was also given Solu-Cortef 125 mg q.6hr IV, started on Xopenex neb treatments q.6hr as well as Pulmicort Neb treatments b.i.d. On the second day of admission her hemoglobin was found to be 6.7. Part of this she was anemic initially with a hemoglobin of around 8 but she was extremely dehydrated with elevated kidney function. She was initially started on IV fluids at D5 1/2 NS at 75 cc/hr. She had also lost 5 lbs when she was seen in our office. The day following admission her hemoglobin was 6.7. She was transfused with 2 units of packed red blood cells and since then her hemoglobin was then stable at 9. Her hemoglobin on the day of discharge was 9.7. She does have oxygen that she wears at night at home as well as a nebulizer machine that she can use at home. We will discharge her with Keflex 500 mg t.i.d. for the next 10 days and Prednisone 10 mg b.i.d. for the next 5 days. She is to use her nebulizer machine with Duonebs at least four times a day. Again, she has oxygen if needed. Initially she was experiencing nausea and not eating much. Now she has been eating 50 to 75% of her meals. Telemetry shows normal sinus rhythm. She has been up and about with minimal shortness of breath and feels much stronger. We will fax all of her labs and contact Dr. Arriaga as she is scheduled to have chemo tomorrow and let him make the decision on what he would like to do. She is to see us or Dr. Arriaga this week. It is understood that if she sees Dr. Arriaga this week, she will see us next week or vice versa. She is discharged in stable condition. LABS: 01/11/18 05:08: Sodium 141, Potassium 4.2, Chloride 102, Carbon Dioxide 30, Anion Gap 13.2, BUN 26 H, Creatinine 1.22, Estimated GFR (MDRD) 43.00, BUN/ Creatinine Ratio 21.31, Glucose 113, Calcium 8.6, Total Bilirubin 0.4, AST 16, ALT 25, Alkaline Phosphatase 49 L, Total Protein 5.3 L, Albumin 1.9 L, Globulin 3.4, Albumin/Globulin Ratio 0.56 01/11/18 05:08: WBC 8.11, RBC 2.96 L, Hgb 9.7 L, Hct 30.2 L, MCV 102.0 H, MCH 32.8 H, MCHC 32.1, RDW Coeff of Nika 21.4 H, Plt Count 93 L, Immature Gran % ( Auto) 2.1, Neut % (Auto) 87.6, Lymph % (Auto) 5.3 L, [place] % (Auto) 4.9, Eos % ( Auto) 0.0, Baso % (Auto) 0.1, Immature Gran # (Auto) 0.2, Neut # (Auto) 7.1 H, Lymph # (Auto) 0.4 L, [place] # (Auto) 0.4, Eos # (Auto) 0.0, Baso # (Auto) 0.0 TIME SPENT: More than 60 minutes. MTDD
== END 2018-01-11 12:34 | disposition home or self-care (01) | DRG 194 ==
LOC: MEDSURG B 14:55
PROVIDERS: ADMIT Internal Medicine; ATTEND Internal Medicine
PROC: 30243N1 Transfusion of Nonautologous Red Blood Cells into Central Vein, Percutaneous Approach (ICD-10-PCS; principal; 2018-01-08)
PROC: 30243N1 Transfusion of Nonautologous Red Blood Cells into Central Vein, Percutaneous Approach (ICD-10-PCS; 2018-01-08)
DX: J18.1 Lobar pneumonia, unspecified organism (principal); C34.91 Malignant neoplasm of unspecified part of right bronchus or lung; D64.9 Anemia, unspecified; R06.00 Dyspnea, unspecified; E86.0 Dehydration; I10 Essential (primary) hypertension; I71.4 Abdominal aortic aneurysm, without rupture; J44.9 Chronic obstructive pulmonary disease, unspecified; K57.90 Diverticulosis of intestine, part unspecified, without perforation or abscess without bleeding; F41.8 Other specified anxiety disorders; E78.5 Hyperlipidemia, unspecified; F17.210 Nicotine dependence, cigarettes, uncomplicated; M19.90 Unspecified osteoarthritis, unspecified site; M47.9 Spondylosis, unspecified; K59.00 Constipation, unspecified; Z99.81 Dependence on supplemental oxygen; Z85.41 Personal history of malignant neoplasm of cervix uteri; Z79.01 Long term (current) use of anticoagulants; Z79.899 Other long term (current) drug therapy
CPT/HCPCS: 36415; 36430; 80053; 81001; 82803; 85008; 85014; 85018; 85025; 86850; 86900; 86922; 87070; 87086; 87186; 87502; 93005; 93010; 94640; 97802

== ENCOUNTER 2018-01-22 21:39 | Inpatient (IN) | payer OTHER ==
[2018-01-22 21:58] VITALS: BMI 18.9
[2018-01-22] MEDS ORDERED: ZOSYN 3.375 GM 3.375 GM in SODIUM CHLORIDE 50 ML IV STA (22:06)
--- NOTE | 2018-01-22 23:21 | ED.PDOC ---
General ED Provider: Dr. FRANSISCO JORDAN-ER Chief Complaint: Shortness of Air Stated Complaint: im coughing and running a fever and sob Time Seen by Physician: 21:40 Mode of Arrival: Wheelchair Information Source: Patient, Family Exam Limitations: No limitations Primary Care Provider: GREG FAITH Nursing and Triage Documentation Reviewed and Agree: Yes Reviewed sepsis parameters & appropriate labs ordered?: Yes System Inflammatory Response Syndrome: Not Applicable Sepsis Protocol: For patient's 13 years and over: Temp is 96.8 and below OR 101 and greater Pulse >90 BPM Resp >20/minute Acutely Altered Mental Status Are patient's symptoms suggestive of a new infection, such as: -Pneumonia -Skin, Soft Tissue -Endocarditis -UTI -Bone, Joint Infection -Implantable Device -Acute Abdominal Infection -Wound Infection -Meningitis -Blood Stream Catheter Infection -Unknown Respiratory Complaint Exam - Respiratory Complaint/Exam Onset/Duration: 24hrs Symptoms Are: Still present Timing: Constant Initial Severity: Mild Current Severity: Moderate Location: Chest Character: Reports: Productive cough Aggravating: Reports: URI Alleviating: Reports: Bronchodilators Associated Signs and Symptoms: Reports: Rapid breathing, Dyspnea, Fever, Chills. Denies: Chest pain, Pleuritic chest pain, Wheezing, Hemoptysis, Dizziness, Calf pain, Calf swelling, Edema History of Healthcare-Acquired Pneumonia: Admit w/in last 30 days Pseudomonas Risk Factors: Reports: Chronic Lung Disease Home Oxygen Use: Yes Recent Stress Test: No Recent Echo/LV Function: No Current Antibiotic Use: No Current Asthma Medication Use: No Respiratory Distress: None Inadequate Respiratory Effort: No Dysphagia Present: No Stridor Present: No JVD Present: No Accessory Muscle Use: No Retractions: Not Present Diminished Breath Sounds: No Sinus Tenderness: None Grunting Respirations: No Kussmaul Respirations: No Differential Diagnoses: Pneumonia Non-Traumatic Chest Pain Syncope: EKG Performed Review of Systems - Review Of Systems Constitutional: Reports: Chills, Fever, Loss of appetite Eyes: Reports: No symptoms Ears, Nose, Mouth, Throat: Reports: No symptoms Respiratory: Reports: Cough, Short of air Cardiac: Reports: No symptoms GI: Reports: No symptoms : Reports: No symptoms Musculoskeletal: Reports: No symptoms Skin: Reports: No symptoms Neurological: Reports: No symptoms Endocrine: Reports: No symptoms Hematologic/Lymphatic: Reports: No symptoms All Other Systems: Reviewed and Negative Past Medical History - Past Medical History Previously Healthy: No Endocrine: Reports: Unknown Cardiovascular: Reports: Unknown Respiratory: Reports: Unknown Hematological: Reports: Unknown Gastrointestinal: Reports: Unknown Genitourinary: Reports: Unknown Neuro/Psych: Reports: Unknown Musculoskeletal: Reports: Unknown Cancer: Reports: Unknown Last Menstrual Period: hyst - - Surgical History General Surgical History: Reports: Unknown - Family History Family History: Reports: Unknown - Social History Smoking Status: Current some day smoker Hx Substance Use: No Alcohol Screening: None - Immunizations Tetanus Shot up to Date: No (unsure) Physical Exam - Physical Exam Appearance: Ill-appearing Eyes: HENNA ENT: Ears normal Neck: Supple Respiratory: Crackles, Rhonchi Cardiovascular: RRR GI/: Soft Musculoskeletal: Normal strength Skin: Warm Neurological: Sensation intact Psychiatric: Affect appropriate, Mood appropriate Interpretation - Radiology Interpretation Radiology Interpretation By: Radiologist Radiology Results: Positive Exam Interpreted: CT Scan - EKG Interpretation Time of EKG #1: 23:28 Rate: Normal Rhythm: Sinus Ectopy: None Mousie: NL ST Segment: Normal Physician Notification - Case Discussed Physician Notified: dr faith Time of Notification: 23:28 Critical Care Note - Critical Care Note Total Time (mins): 0 Course - Course Hematology/Chemistry: 01/22/18 22:20 01/22/18 22:20 Orders, Labs, Meds: Lab Review 01/22/18 01/22/18 01/22/18 22:04 22:20 22:20 WBC 14.91 H RBC 3.53 L Hgb 11.7 L Hct 35.2 L MCV 99.7 H MCH 33.1 H MCHC 33.2 RDW Coeff of Nika 19.5 H Plt Count 209 Immature Gran % (Auto) 4.2 Neut % (Auto) 79.4 Lymph % (Auto) 9.2 L [place] % (Auto) 6.8 Eos % (Auto) 0.2 Baso % (Auto) 0.2 Immature Gran # (Auto) 0.6 Neut # (Auto) 11.8 H Lymph # (Auto) 1.4 [place] # (Auto) 1.0 Eos # (Auto) 0.0 Baso # (Auto) 0.0 Puncture Site Lrad O2 Saturation 94.0 L ABG pH 7.44 ABG pCO2 37.3 ABG pO2 69.0 L ABG HCO3 25.3 ABG Total CO2 26 ABG Base Excess 1 Macario Test + FiO2 % 21.0 Sodium 129 L Potassium 4.0 Chloride 95 L Carbon Dioxide 21 L Anion Gap 17.0 BUN 18 Creatinine 0.77 Estimated GFR (MDRD) 73.00 BUN/Creatinine Ratio 23.37 Glucose 128 H Lactic Acid Calcium 8.9 Total Bilirubin 0.7 AST 19 ALT 25 Alkaline Phosphatase 62 Total Protein 6.7 Albumin 2.5 L Globulin 4.2 Albumin/Globulin Ratio 0.60 Procalcitonin 01/22/18 01/22/18 22:20 22:20 WBC RBC Hgb Hct MCV MCH MCHC RDW Coeff of Nika Plt Count Immature Gran % (Auto) Neut % (Auto) Lymph % (Auto) [place] % (Auto) Eos % (Auto) Baso % (Auto) Immature Gran # (Auto) Neut # (Auto) Lymph # (Auto) [place] # (Auto) Eos # (Auto) Baso # (Auto) Puncture Site O2 Saturation ABG pH ABG pCO2 ABG pO2 ABG HCO3 ABG Total CO2 ABG Base Excess Macario Test FiO2 % Sodium Potassium Chloride Carbon Dioxide Anion Gap BUN Creatinine Estimated GFR (MDRD) BUN/Creatinine Ratio Glucose Lactic Acid 10.7 Calcium Total Bilirubin AST ALT Alkaline Phosphatase Total Protein Albumin Globulin Albumin/Globulin Ratio Procalcitonin 0.15 Orders Category Date Time Status ABG DRAW REQUEST Stat CARDIO 01/22/18 22:05 Completed EKG-(ED ONLY) Stat CARDIO 01/22/18 22:04 Completed IV [ED IV/MEDIPORT/POWERPORT] .ONCE EMERGENCY 01/22/18 22:05 Active ABG Stat LAB 01/22/18 22:04 Completed BLOOD CULTURE (ED ONLY) Stat LAB 01/22/18 22:20 Received CBC W/ AUTO DIFF Stat LAB 01/22/18 22:20 Completed COMPREHENSIVE METABOLIC PANEL Stat LAB 01/22/18 22:20 Completed LACTIC ACID Stat LAB 01/22/18 22:20 Completed PROCALCITONIN Stat LAB 01/22/18 22:20 Completed SPUTUM CULTURE Stat LAB 01/22/18 22:24 Received 0.9 % Sodium Chloride [Saline Flush] MEDS 01/22/18 22:05 Ordered 1 syr IVF PRN PRN Piperacillin Sodium/Tazobactam [Zosyn 3.375 gm] 3.375 MEDS 01/22/18 22:06 Discontinued gm 0.9 % Sodium Chloride [Sodium Chloride] [address] CHEST W/O CONTRAST Stat RADS 01/22/18 22:06 Completed Medications Generic Name Dose Route Start Last Admin Trade Name Abril PRN Reason Stop Dose Admin Sodium Chloride 1 syr 01/22/18 22:05 Saline Flush IVF PRN PRN To flush IV Discontinued Medications Generic Name Dose Route Start Last Admin Trade Name Abril PRN Reason Stop Dose Admin Piperacillin Sod/Tazobactam 50 mls @ 50 mls/hr 01/22/18 22:06 01/22/18 22:25 Sod 3.375 gm/ Sodium Chloride IV 01/22/18 23:05 50 mls/hr ONCE STA Administration Vital Signs: Temp Pulse Resp BP Pulse Ox 01/22/18 21:39 102.1 F H 75 24 142/92 H 92 L Departure - Departure Time of Disposition: 23:28 Disposition: ADMITTED INPATIENT Discharge Problem: Pneumonia Qualifiers: Pneumonia type: due to unspecified organism Laterality: unspecified laterality Lung location: unspecified part of lung Qualified Code(s): J18.9 - Pneumonia, unspecified organism Instructions: Pneumonitis (ED) Condition: Good Pt referred to PMD for follow-up: Yes IPMP verified?: No Allergies/Adverse Reactions: Allergies No Known Allergies Allergy (Verified 01/22/18 21:52) Home Medications: Ambulatory Orders Alprazolam 0.5 mg PO TID PRN 11/14/16 Aspirin [Aspirin EC] 81 mg PO DAILY 11/14/16 Clopidogrel Bisulfate [Clopidogrel] 75 mg PO DAILY 11/14/16 Fenofibrate 160 mg PO DAILY 11/14/16 Ferrous Sulfate 325 mg PO BID 11/14/16 Lisinopril 20 mg PO BID 11/14/16 Simvastatin [Zocor] 40 mg PO BEDTIME 11/14/16 Calcium Carbonate/Vitamin D3 [Calcium 600 + Vit D Tablet] 1 each PO DAILY Fish Oil/Dha/Epa [Fish Oil 1,200 mg Fish Oil] 1 each PO TID 11/15/16 Hydrocodone/Acetaminophen [Hydrocodon-Acetaminoph 7.5-325] 1 each PO TID PRN Pantoprazole Sodium [Protonix] 40 mg PO BIDAC 11/15/16 Travoprost Opth [Travatan Z] 1 drop OP BEDTIME 11/15/16 Dorzolamide HCl/Timolol Maleat [Dorzolamide-Timolol Eye Drops] 1 drop EACHEYE BID 12/16/16 Escitalopram Oxalate [Lexapro] 10 mg PO DAILY 12/16/16 Alendronate Sodium [Fosamax] 70 mg PO WEEKLY 01/07/18 Cimetidine 800 mg PO BID 01/07/18 Guaifenesin [Mucinex] 600 mg PO Q12H 01/07/18 Ondansetron HCl [Zofran] 8 mg PO QID 01/07/18 Hydrocodone/Chlorphen Polis [Tussionex] 5 ml PO Q12H PRN #50 disp.syrin Ipratropium/Albuterol Neb [Duoneb] 1 vial NEB RTQ6H #120 vial.neb 01/11/18 Ipratropium/Albuterol Sulfate [Combivent Respimat Inhal [place]] 2 spray IH BID PRN #1 aero 01/11/18 Prednisone 20 mg PO BID #10 tablet 01/11/18 Disposition Discussed With: Patient, Family
--- NOTE | 2018-01-22 23:25 | CT ---
EXAM: CT of the chest without contrast. HISTORY: Shortness of breath. Cough. Fever. PROCEDURE: Contiguous axial CT images of the chest without contrast with coronal and sagittal reform ats. FINDINGS: Comparison made with CT of 11/14/2016. The heart is within normal limits in size. The thor acic aorta is within normal limits in diameter. There are atherosclerotic calcifications in the thor acic aorta. There are coronary artery calcifications. There are enlarged right hilar lymph nodes danis suring up to 1.1 cm in short axis. There is a 4 mm nodule in the left lower lobe. The left-sided cent ral line is in adequate position. Redemonstrated is a cavitary lesion in the right upper lobe which i s increased in size measuring 9.5 x 9.1 cm with a thickened irregular wall. There are infiltrates an d consolidation in the right upper lobe and right middle lobe. There are degenerative changes in the spine. The adrenal glands and visualized portion of the liver are normal in appearance. There is aneu rysmal dilatation of the infrarenal abdominal aorta which measures 3.2 cm in diameter. The infrarena l abdominal aorta is incompletely visualized secondary to termination of image acquisition. Impression: Interval increase in size of 9.5 x 9.1 cm thick-walled cavitary lesion in the right upper lobe. The differential diagnosis includes infection and malignancy. Right upper lobe and right middle lobe infiltrates and consolidation consistent with infection. Right hilar lymphadenopathy as described. 4 mm nodule in the left lower lobe. Recommend follow-up per Fleischner Society recommendations. Infrarenal abdominal aortic aneurysm as described.
[2018-01-22] MEDS ORDERED: TYLENOL PO PRN (23:37)
[2018-01-22] MEDS ORDERED: MUCINEX PO SCH (23:45)
[2018-01-23] MEDS: SODIUM CHLORIDE 1,000 ML IV SCH ×2 (00:09→19:40)
[2018-01-23] MEDS: DUONEB NEB SCH ×5 (00:12→21:45)
[2018-01-23] MEDS: ZOSYN 3.375 GM 3.375 GM in SODIUM CHLORIDE 50 ML IV SCH ×5 (00:25→23:40)
[2018-01-23] MEDS: SOLU-MEDROL 40 MG IVP SCH ×3 (00:50→20:32)
[2018-01-23] MEDS: PROTONIX PO SCH ×2 (07:58→17:12)
[2018-01-23] MEDS: TRIGLIDE PO SCH (08:37)
[2018-01-23] MEDS: TAGAMET PO SCH ×2 (08:37→20:33)
[2018-01-23] MEDS: VANCOMYCIN 1 GM in SODIUM CHLORIDE 250 ML IV SCH (08:37)
[2018-01-23] MEDS: ZOFRAN TAB PO SCH ×4 (08:37→20:33)
[2018-01-23] MEDS: ZESTRIL PO SCH ×2 (08:37→20:33)
[2018-01-23] MEDS: MUCINEX PO SCH ×2 (08:38→20:33)
[2018-01-23] MEDS: PLAVIX PO SCH (08:38)
[2018-01-23] MEDS: LEXAPRO PO SCH (08:38)
[2018-01-23] MEDS: ASPIRIN EC PO SCH (08:38)
[2018-01-23] MEDS: FERROUS SULFATE PO SCH ×2 (08:38→20:33)
[2018-01-23] MEDS: NORCO 7.5-325 PO PRN ×2 (08:45→22:46)
[2018-01-23] MEDS: COSOPT OP SCH ×2 (08:45→20:34)
[2018-01-23] MEDS ORDERED: NON-FORMULARY MEDICATION (Lisinopril [Lisinopril] 20 MG) PO SCH (09:00)
[2018-01-23] MEDS ORDERED: VANCOMYCIN 1 GM in SODIUM CHLORIDE 250 ML IV SCH (09:00)
[2018-01-23] MEDS ORDERED: NON-FORMULARY MEDICATION (Ondansetron Hcl [Zofran] 8 MG) PO SCH (09:00)
[2018-01-23] MEDS ORDERED: NON-FORMULARY MEDICATION (Ferrous Sulfate [Ferrous Sulfate] 325 MG) PO SCH (09:00)
[2018-01-23] MEDS: XANAX PO PRN (19:39)
[2018-01-23] MEDS: ZOCOR PO SCH (20:33)
[2018-01-23] MEDS: TRAVATAN Z OP SCH (20:33)
[2018-01-24] MEDS: DUONEB NEB SCH ×4 (04:47→22:44)
[2018-01-24] MEDS: ZOSYN 3.375 GM 3.375 GM in SODIUM CHLORIDE 50 ML IV SCH ×3 (05:26→17:39)
[2018-01-24] MEDS: PROTONIX PO SCH ×2 (05:32→16:53)
[2018-01-24] MEDS: ASPIRIN EC PO SCH (09:11)
[2018-01-24] MEDS: LEXAPRO PO SCH (09:11)
[2018-01-24] MEDS: FERROUS SULFATE PO SCH ×2 (09:11→20:12)
[2018-01-24] MEDS: MUCINEX PO SCH ×2 (09:11→20:13)
[2018-01-24] MEDS: ZESTRIL PO SCH ×2 (09:12→20:13)
[2018-01-24] MEDS: VANCOMYCIN 1 GM in SODIUM CHLORIDE 250 ML IV SCH (09:12)
[2018-01-24] MEDS: PLAVIX PO SCH (09:12)
[2018-01-24] MEDS: SOLU-MEDROL 40 MG IVP SCH ×2 (09:12→21:06)
[2018-01-24] MEDS: COSOPT OP SCH ×2 (09:12→20:11)
[2018-01-24] MEDS: ZOFRAN TAB PO SCH ×4 (09:12→20:12)
[2018-01-24] MEDS: TAGAMET PO SCH ×2 (09:12→20:12)
[2018-01-24] MEDS: TRIGLIDE PO SCH (09:12)
[2018-01-24] MEDS: NORCO 7.5-325 PO PRN ×2 (09:19→20:12)
[2018-01-24] MEDS: TRAVATAN Z OP SCH (20:11)
[2018-01-24] MEDS: ZOCOR PO SCH (20:12)
[2018-01-24] MEDS: XANAX PO PRN (21:37)
[2018-01-25] MEDS: ZOSYN 3.375 GM 3.375 GM in SODIUM CHLORIDE 50 ML IV SCH ×5 (00:35→23:28)
[2018-01-25] MEDS: DUONEB NEB SCH ×4 (05:06→20:25)
[2018-01-25] MEDS: PROTONIX PO SCH ×2 (05:34→16:46)
[2018-01-25] MEDS: NORCO 7.5-325 PO PRN ×3 (05:43→23:08)
[2018-01-25] MEDS: SODIUM CHLORIDE 1,000 ML IV SCH (06:59)
[2018-01-25] MEDS: COSOPT OP SCH ×2 (08:59→20:50)
[2018-01-25] MEDS: VANCOMYCIN 1 GM in SODIUM CHLORIDE 250 ML IV SCH (09:01)
[2018-01-25] MEDS: FERROUS SULFATE PO SCH ×2 (09:02→20:50)
[2018-01-25] MEDS: MUCINEX PO SCH ×2 (09:02→20:51)
[2018-01-25] MEDS: ZESTRIL PO SCH ×2 (09:02→20:50)
[2018-01-25] MEDS: PLAVIX PO SCH (09:02)
[2018-01-25] MEDS: LEXAPRO PO SCH (09:02)
[2018-01-25] MEDS: TAGAMET PO SCH ×2 (09:02→20:50)
[2018-01-25] MEDS: ZOFRAN TAB PO SCH ×4 (09:03→20:51)
[2018-01-25] MEDS: ASPIRIN EC PO SCH (09:03)
[2018-01-25] MEDS: TRIGLIDE PO SCH (09:03)
[2018-01-25] MEDS: SOLU-MEDROL 40 MG IVP SCH ×3 (09:27→20:45)
--- NOTE | 2018-01-25 11:00 | PCM.PROG ---
Attending Provider: ATTENDING PROVIDER: Dr. GREG GONZALEZ This patient is seen with Rola Nath, Nurse Practitioner. DATE OF SERVICE: 01/25/18 SUBJECTIVE: This 72 year old WHITE/ F was hospitalized 01/22/18. The patient is sitting in chair, alert. still very weak with productive cough. Sputum is postiive for Pseudomonas. She is afebrile. REVIEW OF SYSTEMS: CONSTITUTIONAL: Weakness. No night sweats. No malaise, lethargy. No fever or chills. HEENT: Eyes: No visual changes. No eye pain. No eye discharge. ENT: No runny nose. No epistaxis. No sinus pain. No odynophagia. No congestion. RESPIRATORY: Cough and shortness of breath. No hemoptysis. CARDIOVASCULAR: No angina symptoms. No CHF symptoms. No atypical chest pain for CAD. No palpitations. No orthopnea.. GASTROINTESTINAL: No abdominal pain. No nausea or vomiting. No diarrhea or constipation. No hematemesis. No hematochezia. GENITOURINARY: No urgency. No frequency. No dysuria. No hematuria. No obstructive symptoms. No discharge. No pain. No significant abnormal bleeding. MUSCULOSKELETAL: No musculoskeletal pain; no joint swelling. NEUROLOGICAL: Awake, alert, oriented to time, place and person. No headache. No neck pain. No syncope. No seizures. No dizziness. PSYCHIATRIC: Not anxious. No depression. No suicidal thoughts. No homicidal thoughts. SKIN: No rash. No lesions. No wounds. ENDOCRINE: No unexplained weight loss. No weight gain. HEMATOLOGIC/LYMPHATIC: No anemia. No purpura. No petechiae. No prolonged or excessive bleeding. No palpable lymph nodes. PHYSICAL EXAMINATION: GENERAL: The patient is awake, alert and oriented, sitting in chair in no distress. VITAL SIGNS: Temperature 98 F, Pulse 68, Respiratory Rate 24, BP 120/62, Pulse Ox 97% HEENT: Head normocephalic, atraumatic. Eyes: Extraocular muscles are intact. Pupils are equal, round and reactive to light and accommodation. Ears: No lesions. Nose appeared normal. Throat: No exudate or erythema. NECK: Supple. No JVD, no carotid bruit. No lymphadenopathy or thyromegaly. LUNGS: Severely diminished breath sounds, worse on right with inspiratory and expiratory wheexe on the right. Percussion note normal. Chest symmetrical. HEART: S1, S2, no S3. No murmurs. No cyanosis or clubbing. No ascites. Pulses: Dorsalis pedis and posterior tibial pulses +1 to +2 both sides. ABDOMEN: Soft. Non-tender. Bowel sounds active. No CVA tenderness. No mass felt. EXTREMITIES: No edema. Full range of motion of all extremities, equal. NEUROLOGIC: No focal deficit. Cranial nerves II through XII are grossly intact. No headache, no double vision or headache. SKIN: Not dry. Intact. Turgor-normal. LYMPHATIC: No palpable lymph nodes/no lymphedema. MUSCULOSKELETAL: Normal joints with no swelling. Muscle tone is normal. LAB REVIEW: 01/25/18 04:15 01/25/18 04:15 01/25/18 04:15: Sodium 137, Potassium 4.6, Chloride 98, Carbon Dioxide 30, Anion Gap 13.6, BUN 11, Creatinine 0.77, Estimated GFR (MDRD) 73.00, BUN/ Creatinine Ratio 14.28, Glucose 139 H, Calcium 8.6, Total Bilirubin 0.3, AST 19 , ALT 23, Alkaline Phosphatase 43 L, Total Protein 5.1 L, Albumin 2.0 L, Globulin 3.1, Albumin/Globulin Ratio 0.65 01/25/18 04:15: WBC 6.66, RBC 2.50 L, Hgb 8.2 L, Hct 25.5 L, MCV 102.0 H, MCH 32.8 H, MCHC 32.2, RDW Coeff of Nika 19.4 H, Plt Count 175, Immature Gran % (Auto ) 5.0, Neut % (Auto) 83.0, Lymph % (Auto) 6.8 L, [place] % (Auto) 5.0, Eos % (Auto ) 0.0, Baso % (Auto) 0.2, Immature Gran # (Auto) 0.3, Neut # (Auto) 5.5, Lymph # (Auto) 0.5 L, [place] # (Auto) 0.3 L, Eos # (Auto) 0.0, Baso # (Auto) 0.0 ASSESSMENT: 1. Right upper and middle lobe pneumonia 2. Right upper lobe malignancy 3. Anemia 4. Generalized weakness PLAN: 1. Increase Solu-Medrol 40 mg q.8 hr 2. Continue Duonebs Plan and coordination of the patient's care discussed in the presence of Alarm Investigator and nurse. CONDITION: Stable SCRIBED BY: JEFFREY ODONNELL, Instrumentation Engineer scribed while in presence of service performed by Dr. Gonzalez/Rola Nath APRN on 01/25/18 ([id number])
--- NOTE | 2018-01-25 12:53 | PN ---
DATE OF SERVICE: 01/24/18 SUBJECTIVE: The patient was hospitalized with pneumonitis, wheezing and pneumonia with fever. The patient is feeling better. She is still weak. Extremely tired with little exertion. 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 The patient's condition with steroids and antibiotics has improved. Her appetite has improved and she is less short of breath then what she came in with. REVIEW OF SYSTEMS: CONSTITUTIONAL: No night sweats. No fatigue, malaise, lethargy. No fever or chills. HEENT: Eyes: No visual changes. No eye pain. No eye discharge. ENT: No runny nose. No epistaxis. No sinus pain. No sore throat. No odynophagia. No congestion. RESPIRATORY: No cough, no congestion. No hemoptysis. No shortness of breath. CARDIOVASCULAR: No angina symptoms. No CHF symptoms. No atypical chest pain for CAD. No palpitations. No orthopnea. GASTROINTESTINAL: No abdominal pain. No nausea or vomiting. No diarrhea or constipation. No hematemesis. No hematochezia. GENITOURINARY: No urgency. No frequency. No dysuria. No hematuria. No obstructive symptoms. No discharge. No pain. No significant abnormal bleeding. MUSCULOSKELETAL: No musculoskeletal pain; no joint swelling. NEUROLOGICAL: No headache. No neck pain. No syncope. No seizures. No dizziness. PSYCHIATRIC: Not anxious. No depression. No suicidal thoughts. No homicidal thoughts. SKIN: No rash. No lesions. No wounds. ENDOCRINE: No unexplained weight loss. No weight gain. HEMATOLOGIC/LYMPHATIC: No anemia. No purpura. No petechiae. No prolonged or excessive bleeding. No palpable lymph nodes. PHYSICAL EXAMINATION: GENERAL: The patient is oriented to time, place and person. HEENT: Head normocephalic, atraumatic. Eyes: Extraocular muscles are intact. Pupils are equal, round and reactive to light and accommodation. Ears: No lesions. Nose appeared normal. Throat: No exudate or erythema. NECK: Supple. No JVD, no carotid bruit. No lymphadenopathy or thyromegaly. LUNGS: Decreased breath sounds with mild wheeze but good air entry. Percussion note normal. Chest symmetrical. HEART: S1, S2, no S3. No murmurs. No cyanosis or clubbing. No ascites. Pulses: Dorsalis pedis and posterior tibial pulses +1 to +2 both sides. ABDOMEN: Soft. Nontender. Bowel sounds active. No CVA tenderness. No mass felt. EXTREMITIES: No edema. Full range of motion of all extremities, equal. NEUROLOGIC: No focal deficit. Cranial nerves II through XII are grossly intact. No headache, no double vision or headache. SKIN: Not dry. Intact. Turgor - normal. LYMPHATIC: No palpable lymph nodes/no lymphedema. MUSCULOSKELETAL: Normal joints with no swelling. Muscle tone is normal. ASSESSMENT: 1. Acute pneumonitis/bronchitis seems to be more improving with steroids, antibiotics and NEBS PLAN: 1. Continue the same management 2. Advised to continue followup with sqe/oncologist specialist. CONDITION: Stable. TIME SPENT: More than 30 minutes. Plan and coordination of the patient's care discussed in the presence of nurse. JOVANY
--- NOTE | 2018-01-25 13:29 | HP ---
DATE OF SERVICE: 01/23/18 REASON FOR HOSPITALIZATION/HISTORY OF PRESENT ILLNESS: 72 year old white female hospitalized with pneumonia. The patient has C of the lung and severe chronic lung disease. CT scan of the chest shows pneumonitis. The patient's original complaints were shortness of breath with cough and congestion with fever and chills. The patient's fever was 102 in the emergency room. PAST MEDICAL HISTORY/PAST SURGICAL HISTORY: Anxiety syndrome C of the lung Severe chronic lung disease with history of smoking Hypertension Dyslipidemia Generalized osteoarthritis Depression Reflux disease REVIEW OF SYSTEMS: CONSTITUTIONAL: No night sweats. Weakness and fatigue. No fever or chills. HEENT: Eyes: No visual changes. No eye pain. No eye discharge. ENT: No runny nose. No epistaxis. No sinus pain. No sore throat. No odynophagia. No ear pain. No congestion. RESPIRATORY: Cough, Congestion. No hemoptysis. No shortness of breath. CARDIOVASCULAR: No angina symptoms. No CHF symptoms. No atypical chest pain for CAD. No palpitations. No PND. No orthopnea. Pleuritic type of pain with cough on the right side. GASTROINTESTINAL: No abdominal pain. No nausea or vomiting. No diarrhea or constipation. No hematemesis. No hematochezia. Poor appetite. GENITOURINARY: No urgency. No frequency. No dysuria. No hematuria. No obstructive symptoms. No discharge. No pain. No significant abnormal bleeding. MUSCULOSKELETAL: No musculoskeletal pain. No joint swelling. No arthritis. Generalized aches and pains. NEUROLOGICAL: No headache. No neck pain. No syncope. No seizures. No dizziness. PSYCHIATRIC: Not anxious. No depression. No suicidal thoughts. No homicidal thoughts. SKIN: No rash. No lesions. No wounds. ENDOCRINE: No unexplained weight loss. No weight gain. HEMATOLOGIC/LYMPHATIC: No anemia. No purpura. No petechiae. No prolonged or excessive bleeding. No palpable lymph nodes. PERSONAL/FAMILY/SOCIAL HISTORY: The patient is single and lives by herself with the help of family. Nonsmoker at present time but used to smoke heavy, no alcohol abuse. Does all activity of daily living. MEDICATIONS: Alprazolam 0.5mg three times a day PRN Aspirin 81mg PO daily Plavix 75mg PO daily Fenofibrate 160mg daily Ferrous Sulfate 325 twice a day Lisinopril 20mg twice a day Simvastatin 40mg PO daily Hydrocodone 7.5-325 three times a day Protonix 40mg twice a day Lexapro 10mg PO daily Fosamax 70mg Q weekly Tagamet 800 twice a day Tussionex one teaspoon twice a day DUO NEB four times PRN Combivent/Respimat one spray once a day Prednisone 20mg twice a day ALLERGIES: None PHYSICAL EXAMINATION: GENERAL: The patient is oriented to time, place and person VITAL SIGNS: Temperature 98, pulse 76, respiratory rate 18, blood pressure 128/ 72 and pulse ox 92%. HEENT: Head normocephalic, atraumatic. Eyes: Extraocular muscles are intact. Pupils are equal, round and reactive to light and accommodation. Ears: No lesions. Nose appeared normal. Throat: No exudate or erythema. NECK: Supple. No JVP, no carotid bruit. No lymphadenopathy or thyromegaly. LUNGS: Decreased breath sounds with mild wheeze. Air entry is acceptable with decreased breath sounds on left side. Clear to auscultation. Percussion note normal. Chest symmetrical. HEART: S1, S2, no S3. Grade I/ systolic murmurs. No cyanosis or clubbing. No ascites. Pulses: Dorsalis pedis and posterior tibial pulses +1 to +2 bilaterally. ABDOMEN: Soft. Nontender. Bowel sounds active. No CVA tenderness. No mass felt. EXTREMITIES: No edema. Full range of motion of all extremities, equal. NEUROLOGIC: No focal deficit. Cranial nerves II through XII are grossly intact. No headache, no double vision or headache. SKIN: Not dry. Intact. Turgor - normal. Mucosa membrane dry. 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 LYMPHATIC: No palpable lymph nodes/no lymphedema. MUSCULOSKELETAL: Normal joints with no swelling. Muscle tone is normal. LABS: Hgb 10.1, hct 30, WBC 12,000 normal differential, creatinine 0.8, BUN 18, potassium 4.2, glucose 189. ABG pO2 69, pCO2 37, pH 7.44 with 94% saturation. ASSESSMENT: 1. Pneumonia 2. Severe chronic lung disease 3. C of the lung being treated with chemotherapy and radiation 4 Hypertension 5. Dyslipidemia 6. Depression 7. Anemia 8. History of smoking 9. Hyperglycemia from steroid therapy PLAN: 1. Give Zosyn and Vancomycin 2. Steroids IV 3. Telemetry 4. NEBS treatment 5. IV fluids TIME SPENT: More than 70 minutes. MTDD
[2018-01-25] MEDS: ZOCOR PO SCH (20:50)
[2018-01-25] MEDS: TRAVATAN Z OP SCH (20:50)
[2018-01-25] MEDS: XANAX PO PRN (20:57)
[2018-01-26] MEDS: SOLU-MEDROL 40 MG IVP SCH ×3 (05:02→21:01)
[2018-01-26] MEDS: ZOSYN 3.375 GM 3.375 GM in SODIUM CHLORIDE 50 ML IV SCH ×4 (05:44→23:04)
[2018-01-26] MEDS: PROTONIX PO SCH ×2 (05:45→17:26)
[2018-01-26] MEDS: DUONEB NEB SCH ×4 (06:05→20:16)
[2018-01-26] MEDS: VANCOMYCIN 1 GM in SODIUM CHLORIDE 250 ML IV SCH (08:42)
[2018-01-26] MEDS: ASPIRIN EC PO SCH (08:42)
[2018-01-26] MEDS: FERROUS SULFATE PO SCH ×2 (08:42→20:31)
[2018-01-26] MEDS: TAGAMET PO SCH ×2 (08:43→20:31)
[2018-01-26] MEDS: LEXAPRO PO SCH (08:43)
[2018-01-26] MEDS: PLAVIX PO SCH (08:43)
[2018-01-26] MEDS: MUCINEX PO SCH ×2 (08:43→20:31)
[2018-01-26] MEDS: ZOFRAN TAB PO SCH ×4 (08:43→20:30)
[2018-01-26] MEDS: ZESTRIL PO SCH ×2 (08:43→20:31)
[2018-01-26] MEDS: XANAX PO PRN ×2 (08:43→20:31)
[2018-01-26] MEDS: TRIGLIDE PO SCH (08:43)
[2018-01-26] MEDS: COSOPT OP SCH ×2 (08:44→20:34)
[2018-01-26] MEDS: CIPRODEX OTIC SUSPENSION OT SCH ×2 (10:18→20:32)
--- NOTE | 2018-01-26 10:35 | PCM.PROG ---
Attending Provider: ATTENDING PROVIDER: Dr. GREG GONZALEZ This patient is seen with Rola Nath, Nurse Practitioner. DATE OF SERVICE: 01/26/18 SUBJECTIVE: This 72 year old WHITE/ F was hospitalized 01/22/18. The patient is sitting in the chair, alert. feeling stronger today. Shortness of breath improved. Will do repeat chest x-ray today. The patient is complaining of right ear pain. REVIEW OF SYSTEMS: CONSTITUTIONAL: Weakness. No night sweats. No malaise, lethargy. No fever or chills. HEENT: Eyes: No visual changes. No eye pain. No eye discharge. ENT: Ears: Right ear pain. No runny nose. No epistaxis. No sinus pain. No odynophagia. No congestion. RESPIRATORY: Cough and congestion. No hemoptysis. No shortness of breath. CARDIOVASCULAR: No angina symptoms. No CHF symptoms. No atypical chest pain for CAD. No palpitations. No orthopnea.. GASTROINTESTINAL: No abdominal pain. No nausea or vomiting. No diarrhea or constipation. No hematemesis. No hematochezia. GENITOURINARY: No urgency. No frequency. No dysuria. No hematuria. No obstructive symptoms. No discharge. No pain. No significant abnormal bleeding. MUSCULOSKELETAL: No musculoskeletal pain; no joint swelling. NEUROLOGICAL: Awake, alert, oriented to time, place and person. No headache. No neck pain. No syncope. No seizures. No dizziness. PSYCHIATRIC: Not anxious. No depression. No suicidal thoughts. No homicidal thoughts. SKIN: No rash. No lesions. No wounds. ENDOCRINE: No unexplained weight loss. No weight gain. HEMATOLOGIC/LYMPHATIC: No anemia. No purpura. No petechiae. No prolonged or excessive bleeding. No palpable lymph nodes. PHYSICAL EXAMINATION: GENERAL: The patient is awake, alert and oriented, sitting in chair in no distress. VITAL SIGNS: Temperature 98.3 F, Pulse 94, Respiratory Rate 16, BP 131/74, Pulse Ox 94% HEENT: Head normocephalic, atraumatic. Eyes: Extraocular muscles are intact. Pupils are equal, round and reactive to light and accommodation. Ears: right ear pain. No lesions. Nose appeared normal. Throat: No exudate or erythema. NECK: Supple. No JVD, no carotid bruit. No lymphadenopathy or thyromegaly. LUNGS: Diminished breath sounds bilaterally with wheeze on the right. Clear to auscultation. Percussion note normal. Chest symmetrical. HEART: S1, S2, no S3. No murmurs. No cyanosis or clubbing. No ascites. Pulses: Dorsalis pedis and posterior tibial pulses +1 to +2 both sides. ABDOMEN: Soft. Non-tender. Bowel sounds active. No CVA tenderness. No mass felt. EXTREMITIES: No edema. Full range of motion of all extremities, equal. NEUROLOGIC: No focal deficit. Cranial nerves II through XII are grossly intact. No headache, no double vision or headache. SKIN: Not dry. Intact. Turgor-normal. LYMPHATIC: No palpable lymph nodes/no lymphedema. MUSCULOSKELETAL: Normal joints with no swelling. Muscle tone is normal. LAB REVIEW: 01/26/18 05:00 01/26/18 05:00 01/26/18 05:00: Sodium 138, Potassium 4.3, Chloride 97 L, Carbon Dioxide 33 H, Anion Gap 12.3, BUN 12, Creatinine 0.82, Estimated GFR (MDRD) 68.00, BUN/ Creatinine Ratio 14.63, Glucose 132 H, Calcium 8.6, Total Bilirubin 0.3, AST 15 , ALT 20, Alkaline Phosphatase 48 L, Total Protein 5.2 L, Albumin 2.1 L, Globulin 3.1, Albumin/Globulin Ratio 0.68 01/26/18 05:00: WBC 6.93, RBC 2.71 L, Hgb 8.9 L, Hct 27.4 L, MCV 101.1 H, MCH 32.8 H, MCHC 32.5, RDW Coeff of Nika 19.4 H, Plt Count 215, Neutrophils % (Manual ) 93.0 H, Lymphocytes % (Manual) 2.0 L, Monocytes % (Manual) 4.0, Basophils % ( Manual) 1.0, Anisocytosis Not present ASSESSMENT: 1. Right upper and middle lobe pneumonia 2. Right upper lobe malignancy 3. Anemia 4. Generalized weakness 5. Right ear pain PLAN: 1. Repeat chest x-ray 2. Ciprodex ear drops, four drops twice a day Plan and coordination of the patient's care discussed in the presence of Ballpoint Pens Assembler and nurse. CONDITION: Stable SCRIBED BY: Mesha HOLLEY scribed while in presence of service performed by Dr. Gonzalez/Rola Nath APRN on 01/26/18 ([id number])
--- NOTE | 2018-01-26 13:45 | PN ---
DATE OF SERVICE: 01/25/18 SUBJECTIVE: 72-year-old white female hospitalized with pneumonia. The patient has Pseudomonas sensitive to Zosyn. The patient's condition is improving. Her appetite has improved. Hydration status has improved. The patient was seen and examined with the nurse practitioner. PHYSICAL EXAMINATION: HEENT: Head normocephalic, atraumatic. Eyes: Extraocular muscles are intact. Pupils are equal, round and reactive to light and accommodation. Ears: No lesions. Nose appeared normal. Throat: No exudate or erythema. NECK: Supple. No JVD, no carotid bruit. No lymphadenopathy or thyromegaly. LUNGS: Decreased breath sounds with crepitations bilaterally. Percussion note normal. Chest symmetrical. HEART: S1, S2, no S3. No murmurs. No cyanosis or clubbing. No ascites. Pulses: Dorsalis pedis and posterior tibial pulses +1 to +2 both sides. ABDOMEN: Soft. Nontender. Bowel sounds active. No CVA tenderness. No mass felt. EXTREMITIES: No edema. Full range of motion of all extremities, equal. NEUROLOGIC: No focal deficit. Cranial nerves II through XII are grossly intact. No headache, no double vision or headache. SKIN: Not dry. Intact. Turgor - normal. LYMPHATIC: No palpable lymph nodes/no lymphedema. MUSCULOSKELETAL: Normal joints with no swelling. Muscle tone is normal. TIME SPENT: More than 30 minutes. Plan and coordination of the patient's care discussed in the presence of nurse. JOVANY
--- NOTE | 2018-01-26 13:53 | DI ---
EXAM: CHEST FRONTAL AND LATERAL VIEWS HISTORY: Pneumonia. COMPARISON: 01/07/2018 FINDINGS: Heart size remains normal. There is peripheral density suggesting either loculated pleural fluid or other reason for pleural thickening over the right upper lobe slightly improved since previ ous exam. Lungs are otherwise within normal limits. Left port catheter stable. Moderate atheroscle rotic disease. IMPRESSION: Slight improvement in right upper lobe density possibly related to improving pneumonia. Other pathol ogy in this region including neoplasia is not excluded radiographically.
[2018-01-26] MEDS: NORCO 7.5-325 PO PRN (17:40)
[2018-01-26] MEDS: ZOCOR PO SCH (20:31)
[2018-01-26] MEDS: TRAVATAN Z OP SCH (20:32)
[2018-01-27] MEDS: SOLU-MEDROL 40 MG IVP SCH ×3 (05:17→22:00)
[2018-01-27] MEDS: ZOSYN 3.375 GM 3.375 GM in SODIUM CHLORIDE 50 ML IV SCH ×3 (05:19→18:19)
[2018-01-27] MEDS: DUONEB NEB SCH ×4 (05:38→22:42)
[2018-01-27] MEDS: NORCO 7.5-325 PO PRN ×2 (05:40→16:30)
[2018-01-27] MEDS: PROTONIX PO SCH ×2 (06:07→16:29)
[2018-01-27] MEDS: CIPRODEX OTIC SUSPENSION OT SCH ×2 (08:50→22:00)
[2018-01-27] MEDS: COSOPT OP SCH ×2 (08:52→22:01)
[2018-01-27] MEDS: ASPIRIN EC PO SCH (08:53)
[2018-01-27] MEDS: ZOFRAN TAB PO SCH ×4 (08:53→22:00)
[2018-01-27] MEDS: LEXAPRO PO SCH (08:53)
[2018-01-27] MEDS: TAGAMET PO SCH ×2 (08:53→21:59)
[2018-01-27] MEDS: FERROUS SULFATE PO SCH ×2 (08:53→22:00)
[2018-01-27] MEDS: ZESTRIL PO SCH ×2 (08:53→22:00)
[2018-01-27] MEDS: PLAVIX PO SCH (08:53)
[2018-01-27] MEDS: MUCINEX PO SCH ×2 (08:54→22:00)
[2018-01-27] MEDS: TRIGLIDE PO SCH (08:54)
--- NOTE | 2018-01-27 09:37 | PCM.PROG ---
Attending Provider: ATTENDING PROVIDER: Dr. GREG GONZALEZ DATE OF SERVICE: 01/27/18 SUBJECTIVE: This 72 year old WHITE/ F was hospitalized 01/22/18 hospitalized with pneumonia. Per chest x-ray improving. Symptoms have improved, coughing is less. Appetite is better. The patient is up and about. REVIEW OF SYSTEMS: CONSTITUTIONAL: No night sweats. No fatigue, malaise, lethargy. No fever or chills. HEENT: Eyes: No visual changes. No eye pain. No eye discharge. ENT: No runny nose. No epistaxis. No sinus pain. No odynophagia. No congestion. RESPIRATORY: No cough, no congestion. No hemoptysis. No shortness of breath. CARDIOVASCULAR: No angina symptoms. No CHF symptoms. No atypical chest pain for CAD. No palpitations. No orthopnea.. GASTROINTESTINAL: No abdominal pain. No nausea or vomiting. No diarrhea or constipation. No hematemesis. No hematochezia. GENITOURINARY: No urgency. No frequency. No dysuria. No hematuria. No obstructive symptoms. No discharge. No pain. No significant abnormal bleeding. MUSCULOSKELETAL: No musculoskeletal pain; no joint swelling. NEUROLOGICAL: Awake, alert, oriented to time, place and person. No headache. No neck pain. No syncope. No seizures. No dizziness. PSYCHIATRIC: Not anxious. No depression. No suicidal thoughts. No homicidal thoughts. SKIN: No rash. No lesions. No wounds. ENDOCRINE: No unexplained weight loss. No weight gain. HEMATOLOGIC/LYMPHATIC: No anemia. No purpura. No petechiae. No prolonged or excessive bleeding. No palpable lymph nodes. PHYSICAL EXAMINATION: GENERAL: The patient is awake, alert and oriented, sitting in bed in no distress. VITAL SIGNS: Temperature 98.2 F, Pulse 99, Respiratory Rate 16, BP 159/81, Pulse Ox 91% HEENT: Head normocephalic, atraumatic. Eyes: Extraocular muscles are intact. Pupils are equal, round and reactive to light and accommodation. Ears: No lesions. Nose appeared normal. Throat: No exudate or erythema. NECK: Supple. No JVD, no carotid bruit. No lymphadenopathy or thyromegaly. LUNGS: Few dry creps at the bases. Good air entry. Percussion note normal. Chest symmetrical. HEART: S1, S2, no S3. No murmurs. No cyanosis or clubbing. No ascites. Pulses: Dorsalis pedis and posterior tibial pulses +1 to +2 both sides. ABDOMEN: Soft. Non-tender. Bowel sounds active. No CVA tenderness. No mass felt. EXTREMITIES: No pedal edema. Full range of motion of all extremities, equal. NEUROLOGIC: No focal deficit. Cranial nerves II through XII are grossly intact. No headache, no double vision or headache. SKIN: Warm and dry. Intact. Turgor-better. LYMPHATIC: No palpable lymph nodes/no lymphedema. MUSCULOSKELETAL: Normal joints with no swelling. Muscle tone is normal. LAB REVIEW: 01/27/18 04:30 01/27/18 04:30 01/27/18 04:30: Sodium 137, Potassium 4.1, Chloride 97 L, Carbon Dioxide 29, Anion Gap 15.1, BUN 14, Creatinine 0.91, Estimated GFR (MDRD) 60.00, BUN/ Creatinine Ratio 15.38, Glucose 141 H, Calcium 8.7, Total Bilirubin 0.4, AST 11 L, ALT 16, Alkaline Phosphatase 44 L, Total Protein 5.3 L, Albumin 2.2 L, Globulin 3.1, Albumin/Globulin Ratio 0.71 01/27/18 04:30: WBC 6.59, RBC 2.80 L, Hgb 9.2 L, Hct 27.9 L, MCV 99.6 H, MCH 32.9 H, MCHC 33.0, RDW Coeff of Nika 19.1 H, Plt Count 207, Neutrophils % (Manual ) 81.0 H, Band Neutrophils % 2.0, Lymphocytes % (Manual) 7.0 L, Monocytes % ( Manual) 3.0, Metamyelocytes % 4.0 H, Myelocytes % 2.0 H, Reactive Lymphocytes 1.0, Anisocytosis Not present ASSESSMENT: 1. PNEUMONIA CLINICALLY RESOLVING PLAN: 1. Continue antibiotics, steroids and nebs 2. D/C Vancomycin 3. Encouraged good nutrition - regular diet 4. Up and about Plan and coordination of the patient's care discussed in the presence of Special Education Instructor and nurse. CONDITION: Stable SCRIBED BY: JEFFREY ODONNELL Test Consultant scribed while in presence of service performed by Dr. GREG GONZALEZ on 01/27/18 ([id number])
[2018-01-27] MEDS: TRAVATAN Z OP SCH (21:59)
[2018-01-27] MEDS: ZOCOR PO SCH (22:00)
[2018-01-27] MEDS: XANAX PO PRN (22:21)
[2018-01-28] MEDS: ZOSYN 3.375 GM 3.375 GM in SODIUM CHLORIDE 50 ML IV SCH ×4 (00:29→17:41)
[2018-01-28] MEDS: DUONEB NEB SCH ×4 (04:52→22:10)
[2018-01-28] MEDS: SOLU-MEDROL 40 MG IVP SCH (05:29)
[2018-01-28] MEDS: PROTONIX PO SCH ×2 (05:36→17:41)
[2018-01-28] MEDS: NORCO 7.5-325 PO PRN ×3 (05:39→22:30)
--- NOTE | 2018-01-28 09:37 | PCM.PROG ---
Attending Provider: ATTENDING PROVIDER: Dr. GREG GONZALEZ This patient is seen with Rola Nath, Nurse Practitioner. DATE OF SERVICE: 01/28/18 SUBJECTIVE: This 72 year old WHITE/ F was hospitalized 01/22/18. The patient is sitting in chair, alert. Shortness of breath improved. She would like cough medication for evening. She has been eating better. Chest x-ray showed mild improvement. REVIEW OF SYSTEMS: CONSTITUTIONAL: Positive for weakness. No night sweats. No malaise, lethargy. No fever or chills. HEENT: Eyes: No visual changes. No eye pain. No eye discharge. ENT: No runny nose. No epistaxis. No sinus pain. No odynophagia. No congestion. RESPIRATORY: Cough. No congestion. No hemoptysis. No shortness of breath. CARDIOVASCULAR: No angina symptoms. No CHF symptoms. No atypical chest pain for CAD. No palpitations. No orthopnea.. GASTROINTESTINAL: No abdominal pain. No nausea or vomiting. No diarrhea or constipation. No hematemesis. No hematochezia. GENITOURINARY: No urgency. No frequency. No dysuria. No hematuria. No obstructive symptoms. No discharge. No pain. No significant abnormal bleeding. MUSCULOSKELETAL: No musculoskeletal pain; no joint swelling. NEUROLOGICAL: Awake, alert, oriented to time, place and person. No headache. No neck pain. No syncope. No seizures. No dizziness. PSYCHIATRIC: Not anxious. No depression. No suicidal thoughts. No homicidal thoughts. SKIN: No rash. No lesions. No wounds. ENDOCRINE: No unexplained weight loss. No weight gain. HEMATOLOGIC/LYMPHATIC: No anemia. No purpura. No petechiae. No prolonged or excessive bleeding. No palpable lymph nodes. PHYSICAL EXAMINATION: GENERAL: The patient is awake, alert and oriented, sitting in chair in no distress. VITAL SIGNS: Temperature 98.3 F, Pulse 90, Respiratory Rate 26, BP 133/75, Pulse Ox 91% HEENT: Head normocephalic, atraumatic. Eyes: Extraocular muscles are intact. Pupils are equal, round and reactive to light and accommodation. Ears: No lesions. Nose appeared normal. Throat: No exudate or erythema. NECK: Supple. No JVD, no carotid bruit. No lymphadenopathy or thyromegaly. LUNGS: Diminished breath sounds bilaterally. Percussion note normal. Chest symmetrical. HEART: S1, S2, no S3. No murmurs. No cyanosis or clubbing. No ascites. Pulses: Dorsalis pedis and posterior tibial pulses +1 to +2 both sides. ABDOMEN: Soft. Non-tender. Bowel sounds active. No CVA tenderness. No mass felt. EXTREMITIES: No edema. Full range of motion of all extremities, equal. NEUROLOGIC: No focal deficit. Cranial nerves II through XII are grossly intact. No headache, no double vision or headache. SKIN: Not dry. Intact. Turgor-normal. LYMPHATIC: No palpable lymph nodes/no lymphedema. MUSCULOSKELETAL: Normal joints with no swelling. Muscle tone is normal. LAB REVIEW: 01/28/18 04:30 01/28/18 04:30 01/28/18 04:30: WBC 9.56, RBC 3.00 L, Hgb 9.8 L, Hct 30.7 L, MCV 102.3 H, MCH 32.7 H, MCHC 31.9, RDW Coeff of Nika 19.5 H, Plt Count 213, Immature Gran % (Auto ) 8.8 H, Neut % (Auto) 78.7, Lymph % (Auto) 7.2 L, [place] % (Auto) 4.7, Eos % ( Auto) 0.0, Baso % (Auto) 0.6, Immature Gran # (Auto) 0.8, Neut # (Auto) 7.5 H, Lymph # (Auto) 0.7, [place] # (Auto) 0.5, Eos # (Auto) 0.0, Baso # (Auto) 0.1 01/28/18 04:30: Sodium 137, Potassium 4.6, Chloride 99, Carbon Dioxide 28, Anion Gap 14.6, BUN 17, Creatinine 1.03, Estimated GFR (MDRD) 52.00, BUN/ Creatinine Ratio 16.50, Glucose 136 H, Calcium 8.9, Total Bilirubin 0.5, AST 13 L, ALT 15, Alkaline Phosphatase 46 L, Total Protein 5.4 L, Albumin 2.2 L, Globulin 3.2, Albumin/Globulin Ratio 0.69 ASSESSMENT: 1. Right upper and middle lobe pneumonia, improving 2. Right upper lobe malignancy 3. Anemia 4. Generalized weakness 5. Right ear pain, improving PLAN: 1. Prednisone 10 mg b.i.d. 2. D/C IV Solu-Medrol 3. Tussionex b.i.d. 4. Anticipate d/c tomorrow Plan and coordination of the patient's care discussed in the presence of Cement Tester Assistant and nurse. CONDITION: Stable SCRIBED BY: JEFFREY ODONNELL Vehicle Fuel Systems Converter scribed while in presence of service performed by Dr. Gonzalez/Rola Nath APRN on 01/28/18 ([id number])
[2018-01-28] MEDS: FERROUS SULFATE PO SCH ×2 (10:11→22:30)
[2018-01-28] MEDS: TAGAMET PO SCH ×2 (10:11→22:30)
[2018-01-28] MEDS: CIPRODEX OTIC SUSPENSION OT SCH ×2 (10:11→22:27)
[2018-01-28] MEDS: COSOPT OP SCH ×2 (10:11→22:35)
[2018-01-28] MEDS: ASPIRIN EC PO SCH (10:11)
[2018-01-28] MEDS: MUCINEX PO SCH ×2 (10:12→22:31)
[2018-01-28] MEDS: ZOFRAN TAB PO SCH ×4 (10:12→22:30)
[2018-01-28] MEDS: LEXAPRO PO SCH (10:12)
[2018-01-28] MEDS: TRIGLIDE PO SCH (10:12)
[2018-01-28] MEDS: ZESTRIL PO SCH ×2 (10:12→22:30)
[2018-01-28] MEDS: PLAVIX PO SCH (10:12)
[2018-01-28] MEDS: TUSSIONEX PO SCH ×2 (10:18→22:28)
[2018-01-28] MEDS: XANAX PO PRN ×2 (10:19→22:31)
[2018-01-28] MEDS: PREDNISONE PO SCH (17:41)
[2018-01-28] MEDS ORDERED: CITRATE OF MAGNESIA PO STA (21:19)
[2018-01-28] MEDS: TRAVATAN Z OP SCH (22:27)
[2018-01-28] MEDS: ZOCOR PO SCH (22:31)
[2018-01-29] MEDS: ZOSYN 3.375 GM 3.375 GM in SODIUM CHLORIDE 50 ML IV SCH ×2 (00:18→06:03)
[2018-01-29] MEDS: DUONEB NEB SCH ×2 (04:50→10:17)
[2018-01-29] MEDS: PROTONIX PO SCH (06:03)
[2018-01-29 06:06] VITALS: BP 135/83; TEMP 98.1
[2018-01-29] MEDS: PREDNISONE PO SCH (08:45)
[2018-01-29] MEDS: FERROUS SULFATE PO SCH (08:45)
[2018-01-29] MEDS: PLAVIX PO SCH (08:45)
[2018-01-29] MEDS: MUCINEX PO SCH (08:45)
[2018-01-29] MEDS: LEXAPRO PO SCH (08:45)
[2018-01-29] MEDS: ZOFRAN TAB PO SCH (08:46)
[2018-01-29] MEDS: TAGAMET PO SCH (08:46)
[2018-01-29] MEDS: TUSSIONEX PO SCH (08:46)
[2018-01-29] MEDS: ASPIRIN EC PO SCH (08:46)
[2018-01-29] MEDS: CIPRODEX OTIC SUSPENSION OT SCH (08:46)
[2018-01-29] MEDS: COSOPT OP SCH (08:46)
[2018-01-29] MEDS: ZESTRIL PO SCH (08:46)
[2018-01-29] MEDS: TRIGLIDE PO SCH (08:46)
--- NOTE | 2018-01-29 09:50 | PCM.PROG ---
Attending Provider: ATTENDING PROVIDER: Dr. GREG WADDELL This patient is seen with Rola Nath, Nurse Practitioner. DATE OF SERVICE: 01/29/18 SUBJECTIVE: This 72 year old WHITE/ F was hospitalized 01/22/18. The patient is alert, sitting up the chair. Shortness of breath and cough has improved. She has been eating fairly well. States she is ready to go home today. Has NEB machine at home. REVIEW OF SYSTEMS: CONSTITUTIONAL: No night sweats. Fatigue. No fever or chills. Weakness. HEENT: Eyes: No visual changes. No eye pain. No eye discharge. ENT: No runny nose. No epistaxis. No sinus pain. No odynophagia. No congestion. RESPIRATORY: Cough, no congestion. No hemoptysis. No shortness of breath. CARDIOVASCULAR: No angina symptoms. No CHF symptoms. No atypical chest pain for CAD. No palpitations. No orthopnea.. GASTROINTESTINAL: No abdominal pain. No nausea or vomiting. No diarrhea or constipation. No hematemesis. No hematochezia. GENITOURINARY: No urgency. No frequency. No dysuria. No hematuria. No obstructive symptoms. No discharge. No pain. No significant abnormal bleeding. MUSCULOSKELETAL: No musculoskeletal pain; no joint swelling. NEUROLOGICAL: Awake, alert, oriented to time, place and person. No headache. No neck pain. No syncope. No seizures. No dizziness. PSYCHIATRIC: Not anxious. No depression. No suicidal thoughts. No homicidal thoughts. SKIN: No rash. No lesions. No wounds. ENDOCRINE: No unexplained weight loss. No weight gain. HEMATOLOGIC/LYMPHATIC: No anemia. No purpura. No petechiae. No prolonged or excessive bleeding. No palpable lymph nodes. PHYSICAL EXAMINATION: GENERAL: The patient is awake, alert and oriented, sitting in bed in no distress. VITAL SIGNS: Temperature 98.1 F, Pulse 97, Respiratory Rate 12, BP 135/83, Pulse Ox 93% HEENT: Head normocephalic, atraumatic. Eyes: Extraocular muscles are intact. Pupils are equal, round and reactive to light and accommodation. Ears: No lesions. Nose appeared normal. Throat: No exudate or erythema. NECK: Supple. No JVD, no carotid bruit. No lymphadenopathy or thyromegaly. LUNGS: Diminished breath sounds, faint expiratory wheezing on right. Clear to auscultation. Percussion note normal. Chest symmetrical. HEART: S1, S2, no S3. No murmurs. No cyanosis or clubbing. No ascites. Pulses: Dorsalis pedis and posterior tibial pulses +1 to +2 both sides. ABDOMEN: Soft. Non-tender. Bowel sounds active. No CVA tenderness. No mass felt. EXTREMITIES: No edema. Full range of motion of all extremities, equal. NEUROLOGIC: No focal deficit. Cranial nerves II through XII are grossly intact. No headache, no double vision or headache. SKIN: Not dry. Intact. Turgor-normal. LYMPHATIC: No palpable lymph nodes/no lymphedema. MUSCULOSKELETAL: Normal joints with no swelling. Muscle tone is normal. LAB REVIEW: 01/29/18 04:30 01/29/18 04:30 01/29/18 04:30: Sodium 136, Potassium 4.1, Chloride 96 L, Carbon Dioxide 30, Anion Gap 14.1, BUN 17, Creatinine 1.15, Estimated GFR (MDRD) 46.00, BUN/ Creatinine Ratio 14.78, Glucose 103, Calcium 8.8, Total Bilirubin 0.4, AST 13 L , ALT 14, Alkaline Phosphatase 45 L, Total Protein 5.2 L, Albumin 2.3 L, Globulin 2.9, Albumin/Globulin Ratio 0.79 01/29/18 04:30: WBC 9.73, RBC 2.97 L, Hgb 9.8 L, Hct 30.1 L, MCV 101.3 H, MCH 33.0 H, MCHC 32.6, RDW Coeff of Nika 19.6 H, Plt Count 241, Immature Gran % (Auto ) 10.6 H, Neut % (Auto) 72.4, Lymph % (Auto) 8.8 L, [place] % (Auto) 7.6, Eos % ( Auto) 0.0, Baso % (Auto) 0.6, Immature Gran # (Auto) 1.0, Neut # (Auto) 7.0 H, Lymph # (Auto) 0.9, [place] # (Auto) 0.7, Eos # (Auto) 0.0, Baso # (Auto) 0.1 ASSESSMENT: Please see below. 1. Right upper and lower lobe pneumonia, improving 2. Right upper lobe malignancy 3. Right ear pain, improving 4. COPD PLAN: 1. Continue -ciprovex ear drops 2. Prednisone 10 bid time 5 days then 5mg for 5 day 3. Appointment with Dr. Cordero 4. Will see us later next week 5. Levaquin 500 PO daily for 7 days 6. DUO NEBS at home to do 3-4 times daily Plan and coordination of the patient's care discussed in the presence of Wood Casket Maker and nurse. SCRIBED BY: LIBRADO REDDING, Consumer Recruiter scribed while in presence of service performed by Dr. Waddell/Rola Nath APRN on 01/29/18 ([id number])
--- NOTE | 2018-01-29 10:46 | CM.DICTOOL ---
ADMISSION: 01/22/18 23:49 DISCHARGE: JANUARY 29, 2018 DATE OF SERVICE: 01/29/18 FINAL DIAGNOSIS PNEUMONIA, RUL AND RML SPUTUM CULTURE: PSEUDOMONAS AERUGINOSA LUNG CANCER, RADIATION COMPLETED, CHEMOTHERAPY CURRENTLY (RUL) COPD ANEMIA (TRANSFUSION December,) HYPERTENSION INFRARENAL AAA, 3.[address] DYSLIPIDEMIA CERVICAL CANCER DIVERTICULITIS ANXIETY/DEPRESSION OSTEOARTHRITIS DJD SPINE GERD CURRENT EVERY DAY SMOKER ENDARTERECTOMY LEFT BREAST LUMPECTOMY HYSTERECTOMY CARDIAC STENT APPLICATION LAST VITALS Temp Pulse Resp BP Pulse Ox 98.1 F 97 H 16 135/83 93 L 01/29/18 06:00 01/29/18 06:00 01/29/18 08:00 01/29/18 06:00 01/29/18 06:00 TAKE THESE MEDICATIONS Hydrocodone Bitart/Acetaminophen ([place] 7.5-325) 1 tab PO TID PRN PRN Reason: MODERATE PAIN Last Admin: 01/28/18 22:30 Dose: 1 tab Albuterol/Ipratropium (Duoneb) 1 vial NEB RTQID [facility] Last Admin: 01/29/18 04:50 Dose: 1 vial Alprazolam (Xanax) 0.5 mg PO TID PRN PRN Reason: Anxiety Last Admin: 01/28/18 22:31 Dose: 0.5 mg Aspirin (Aspirin Ec) 81 mg PO DAILYWM [facility] Last Admin: 01/29/18 08:46 Dose: 81 mg Chlorphenir/Hydrocodone Polistirex (Tussionex) 5 ml PO BID FOR 10 DAYS Cimetidine (Tagamet) 800 mg PO BID [facility] Last Admin: 01/29/18 08:46 Dose: 800 mg Ciprofloxacin/Dexamethasone (Ciprodex Otic Suspension) 4 drop OT Q12HR [facility] Stop: 02/01/18 21:01 Clopidogrel Bisulfate (Plavix) 75 mg PO DAILY [facility] Last Admin: 01/29/18 08:45 Dose: 75 mg Dorzolamide/Timolol (Cosopt) 1 drop OP BID [facility] Last Admin: 01/29/18 08:46 Dose: Not Given Escitalopram Oxalate (Lexapro) 10 mg PO DAILY [facility] Last Admin: 01/29/18 08:45 Dose: 10 mg Fenofibrate (Triglide) 160 mg PO DAILY [facility] Last Admin: 01/29/18 08:46 Dose: 160 mg Ferrous Sulfate (Ferrous Sulfate) 324 mg PO BID [facility] Last Admin: 01/29/18 08:45 Dose: 324 mg Guaifenesin (Mucinex) 600 mg PO Q12HR [facility] Last Admin: 01/29/18 08:45 Dose: 600 mg Lisinopril (Zestril) 20 mg PO BID [facility] Last Admin: 01/29/18 08:46 Dose: 20 mg Ondansetron HCl (Zofran Tab) 8 mg PO QID [facility] Last Admin: 01/29/18 08:46 Dose: 8 mg Pantoprazole Sodium (Protonix) 40 mg PO BIDAC [facility] Last Admin: 01/29/18 06:03 Dose: 40 mg Prednisone (Prednisone) 10 mg PO BIDWM SUSAN FOR 5 DAYS, THEN DAILY FOR 5 DAYS Simvastatin (Zocor) 40 mg PO BEDTIME [facility] Last Admin: 01/28/18 22:31 Dose: 40 mg Travoprost (Travatan Z) 1 drop OP BEDTIME [facility] Last Admin: 01/28/18 22:27 Dose: 1 drop Alendronate Sodium (Fosamax) 70 mg PO WEEKLY Calcium 600 + Vitamin D 1 Daily Levaquin 500 mg PO DAILY for 7 days Ipratropium/Albuterol Sulfate (Combivent Respimat Inhal) 2 spray IH BID PRN MEDICATION CHANGES STOP PREDNISONE 20 MG ALLERGIES No Known Allergies Allergy (Verified 01/22/18 21:52) NEW PRESCRIPTIONS: TUSSIONEX 5 ML BID FOR 10 DAYS LEVAQUIN 500 MG DAILY FOR 7 DAYS PREDNISONE 10 MG BID FOR 5 DAYS, THEN DAILY FOR 5 DAYS CIPRODEX 4 DROPS BID TO RIGHT EAR UNTIL 02-01-2018 (HOSPITAL SUPPLY SENT) SMOKING: ADVISED TO STOP SMOKING DISEASE SPECIFIC EDUCATION: PNEUMONIA USE OF STEROID AND RISK OF GI IRRITATION APPOINTMENTS LAB REVIEW: 01/29/18 04:30 01/29/18 04:30 01/29/18 04:30: Sodium 136, Potassium 4.1, Chloride 96 L, Carbon Dioxide 30, Anion Gap 14.1, BUN 17, Creatinine 1.15, Estimated GFR (MDRD) 46.00, BUN/ Creatinine Ratio 14.78, Glucose 103, Calcium 8.8, Total Bilirubin 0.4, AST 13 L , ALT 14, Alkaline Phosphatase 45 L, Total Protein 5.2 L, Albumin 2.3 L, Globulin 2.9, Albumin/Globulin Ratio 0.79 01/29/18 04:30: WBC 9.73, RBC 2.97 L, Hgb 9.8 L, Hct 30.1 L, MCV 101.3 H, MCH 33.0 H, MCHC 32.6, RDW Coeff of Nika 19.6 H, Plt Count 241, Immature Gran % (Auto ) 10.6 H, Neut % (Auto) 72.4, Lymph % (Auto) 8.8 L, [place] % (Auto) 7.6, Eos % ( Auto) 0.0, Baso % (Auto) 0.6, Immature Gran # (Auto) 1.0, Neut # (Auto) 7.0 H, Lymph # (Auto) 0.9, [place] # (Auto) 0.7, Eos # (Auto) 0.0, Baso # (Auto) 0.1 PLAN: DISCHARGE HOME DIET: REGULAR TOLERATED ACTIVITY: RESUME TOLERATED, REST NEEDED CONTINUE TO USE NEBULIZER TREATMENTS 3-4 TIMES DAILY AN APPOINTMENT IS SCHEDULED WITH DR. ARRIAGA ON January AT 3:30 PM AN APPOINTMENT IS SCHEDULED WITH AMI RINALDI APRN ON January AT 9 AM FULL CODE STATUS MS. LITTLEJOHN IS ALERT AND ORIENTED X 3. SHE IS INDEPENDENT WITH ACTIVITIES OF DAILY LIVING AND IS AMBULATORY WITHOUT USE OF AN ASSISTIVE DEVICE. MEAL INTAKES ARE GOOD AT 10-100%. NO NAUSEA OR DIARRHEA IS REPORTED BY THE PATIENT. SHE CONTINUES TO HAVE A PRODUCTIVE COUGH OF VARELA-PENG SPUTUM. SHE DENIES CHEST PAIN, BUT REPORTS CHRONIC LOW BACK PAIN. SKIN IS INTACT EXCEPT FOR SMALL AREAS OF ECCHYMOSIS TO BOTH ARMS AND DISCOLORATION TO THE RIGHT UPPER BACK FROM RADIATION. SHE HAS A NEBULIZER WITH MEDICATION AT HOME TO USE 3-4 TIMES DAILY. SHE DOES NOT USE HOME OXYGEN. GREG GONZALEZ MD AMI RINALDI APRN
--- NOTE | 2018-02-03 11:22 | PN ---
DATE OF SERVICE: 01/26/18 SUBJECTIVE: The patient was hospitalized with pneumonia. 72-year-old female with lung cancer. Her condition is improving, her appetite is improving. Continue nebs and antibiotics. Prognosis is guarded. TIME SPENT: More than 30 minutes. Plan and coordination of the patient's care discussed in the presence of nurse. JOVANY
--- NOTE | 2018-02-03 14:48 | DS ---
DATE OF SERVICE: 01/29/18 FINAL DIAGNOSIS: 1. PNEUMONIA, RIGHT UPPER LOBE AND RIGHT MIDDLE LOBE 2. SPUTUM CULTURE; PSEUDOMONAS AERUGINOSA 3. LUNG CANCER, RADIATION COMPLETED, CHEMOTHERAPY CURRENTLY (RUL) 4. COPD 5. ANEMIA (TRANSFUSION December,) 6. HYPERTENSION 7. INFRARENAL AAA, 3.[address] 8. DYSLIPIDEMIA 9. CERVICAL CANCER 10. DIVERTICULITIS 11. ANXIETY/DEPRESSION 12. 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 GERD 15. CURRENT EVERY DAY SMOKER 16. ENDARTERECTOMY 17. LEFT BREAST LUMPECTOMY 18. HYSTERECTOMY 19. CARDIAC STENT APPLICATION DISCHARGE INSTRUCTIONS: Followup appointment scheduled with Dr. Cordero on February 02, 2018 at 3:30 p.m. An appointment is scheduled with Rola Nath APRN on February 03, 2018 at 9 a.m. Full code status. MEDICATIONS AT DISCHARGE: (TAKE THESE MEDICATIONS) [place] 7.5-325 one tab p.o.t.i.d. p.r.n. Duoneb one vial neb RT q.i.d. SUSAN Xanax 0.5 mg p.o. t.i.d. p.r.n. Aspirin 81 mg p.o. daily with meal SUSAN Tussionex 5 mL p.o. b.i.d. for 10 days Tagamet 800 mg p.o. b.i.d. SUSAN Ciprodex Otic Suspension four drop OT q.12hr SUSAN Plavix 75 mg p.o. daily SUSAN Cosopt one drop OP b.i.d. SUSAN Lexapro 10 mg p.o. daily SUSAN Triglide 160 mg p.o. daily SUSAN Ferrous Sulfate 324 mg p.o. b.i.d. SUSAN Mucinex 600 mg p.o. q.12hr SUSAN Zestril 20 mg p.o. b.i.d. SUSAN Zofran 8 mg p.o. q.i.d. SUSAN Protonix 40 mg p.o. b.i.d. a.c. SUSAN Prednisone 10 mg p.o. b.i.d. with meal SUSAN for 5 days, then daily for 5 days Zocor 40 mg p.o. bedtime SUSAN Travatan Z one drop OP bedtime SUSAN Fosamax 70 mg p.o. weekly Calcium 600 + Vitamin D one daily Levaquin 500 mg p.o. daily for 7 days Ipratropium/Albuterol two spray IH b.i.d. p.r.n. MEDICATION CHANGES: Stop Prednisone 20 mg NEW PRESCRIPTIONS: Tussionex 5 mL b.i.d. for 10 days Levaquin 500 mg daily for 7 days Prednisone 10 mg b.i.d. for 5 days then daily for 5 days Ciprodex 4 drops b.i.d. to right ear until 02/01/18 (hospital supply sent) DIET INSTRUCTIONS: Regular as tolerated ACTIVITY: Regular as tolerated, rest as needed SMOKING: Advised to stop smoking DISEASE SPECIFIC EDUCATION: Pneumonia Use of steroid and risk of GI irritation Appointments HOSPITAL COURSE: This is a 72-year-old white female with a history of right upper lobe malignancy who is currently undergoing chemotherapy. She just recently finished radiation with Dr. Erickson. She was hospitalized approximately 2 weeks ago with right upper lobe pneumonia surrounding the malignancy. She was discharged in stable condition, was continued on p.o. antibiotics and continued to return to the office with an extension of p.o. antibiotics and steroids without improvement. She then returned to the emergency room with increasing weakness and shortness of breath and it was found on CT scan that she had then developed right middle lobe pneumonia as well. She was admitted through the emergency room , placed on Zosyn q.6hr as well as Solu-Medrol 80 mg IV q.12 hr. Initially she was short of breath requiring oxygen at 1 to 2L. On the second day following admission, I increased the steroids to 80 mg IV q.8hr. A sputum culture was done which came back positive for Pseudomonas. It was sensitive to Zosyn and also sensitive to Levaquin which she will go home on Levaquin 500 mg daily for the next 7 days. With Duonebs and the administration of the antibiotics, her breathing has slowly improved. She does have increased breath sounds on the right side. Initially she started with crepitations and a slight wheeze in the right upper lobe. Today, on day of discharge, she just has diminished sounds with no wheezing on in the right upper lobe. Yesterday, her IV steroids were discontinued and we placed her on p.o. Prednisone 10 mg b.i.d. again today. We will discharge her on Levaquin 500 mg daily for the next 7 days as the Pseudomonas is sensitive to his. On the third day after discharge, she was complaining of right ear pain. After examination, she had redness of the ear canal however tympanic membrane was normal showing no inner ear infection so I started her on Ciprodex otic solution four drops twice daily. This has subsequently improved the pain. She will be sent home with these drops to finish out a weeks' course. The patient has a nebulizer machine at home. She is instructed to continue with her Duonebs at least three times a day. She may do these as often as every four hours if needed. Her Tussionex has helped significantly in order to help her rest. Will send her home with a prescription for Tussionex that she can take twice a day. All of her other medications have remained unchanged. For the past 48 hours she has been able to be up and about without oxyggen, has been sleeping well. Her appetite has improved just within the past 24 hours. She has been eating about 75% of her meals. She initially had some anemia with hemoglobin dropping to 8.4 but it has resolved on its own and is up to 9.8 which is about her baseline while she is undergoing chemotherapy. Dr. Cordero was made aware of her hospitalization. She has an appointment with him next Thursday. She will then see us later in the week next or Thursday. She is discharged in stable condition. TIME SPENT: More than 60 minutes. JOVANY
== END 2018-01-29 11:52 | disposition home or self-care (01) | DRG 178 ==
LOC: ED 21:39 → MEDSURG A 23:49
PROVIDERS: ADMIT Internal Medicine; ATTEND Internal Medicine
DX: J15.1 Pneumonia due to Pseudomonas (principal); K57.92 Diverticulitis of intestine, part unspecified, without perforation or abscess without bleeding; C34.11 Malignant neoplasm of upper lobe, right bronchus or lung; R06.02 Shortness of breath; R50.9 Fever, unspecified; R05 Cough; J44.9 Chronic obstructive pulmonary disease, unspecified; D64.9 Anemia, unspecified; I10 Essential (primary) hypertension; I71.4 Abdominal aortic aneurysm, without rupture; E78.5 Hyperlipidemia, unspecified; F41.8 Other specified anxiety disorders; M19.90 Unspecified osteoarthritis, unspecified site; M47.9 Spondylosis, unspecified; K21.9 Gastro-esophageal reflux disease without esophagitis; R53.1 Weakness; H92.01 Otalgia, right ear; F17.210 Nicotine dependence, cigarettes, uncomplicated; Z95.5 Presence of coronary angioplasty implant and graft; Z79.02 Long term (current) use of antithrombotics/antiplatelets; Z79.899 Other long term (current) drug therapy; Z95.828 Presence of other vascular implants and grafts; Z85.41 Personal history of malignant neoplasm of cervix uteri
CPT/HCPCS: 36415; 80053; 82803; 83605; 84145; 85007; 85025; 87040; 87070; 87081; 87186; 93005; 93010; 94640; 96365; 99284

== ENCOUNTER 2018-02-10 22:23 | Inpatient (IN) ==
[2018-02-10] MEDS ORDERED: DEMEROL 50 MG/ML VIAL IVP STA (22:29)
[2018-02-10] MEDS ORDERED: ZOFRAN 4 MG/2 ML IVP STA (22:29)
--- NOTE | 2018-02-10 22:37 | ED.PDOC ---
General ED Provider: Dr. IVETTE TAN Chief Complaint: Abdominal Pain Stated Complaint: Patient been hurting in the mid abdomen since noon,. vomited x3 diarrhea x3. was here 2 weeks ago for the pneumonia. Time Seen by Physician: 22:34 Primary Care Provider: GREG GONZALEZ Nursing and Triage Documentation Reviewed and Agree: Yes Reviewed sepsis parameters & appropriate labs ordered?: Yes System Inflammatory Response Syndrome: Pulse >90 BPM, Resp >20/Minute Sepsis Protocol: For patient's 13 years and over: Temp is 96.8 and below OR 101 and greater Pulse >90 BPM Resp >20/minute Acutely Altered Mental Status Are patient's symptoms suggestive of a new infection, such as: -Pneumonia -Skin, Soft Tissue -Endocarditis -UTI -Bone, Joint Infection -Implantable Device -Acute Abdominal Infection -Wound Infection -Meningitis -Blood Stream Catheter Infection -Unknown GI Complaint Exam - Abdominal Pain Complaint/Exam Onset: Gradual Symptoms Are: Still present Timing: Constant Initial Severity: Severe Current Severity: Severe Location of Pain: Discrete Radiates To: Reports: Back, Flank Character: Reports: Dull, Aching Aggravating: Reports: Movement, Food Alleviating: Reports: None Associated Signs and Symptoms: Reports: Diaphoresis, Nausea, Vomiting, Diarrhea. Denies: Fever, Cough, Chest pain, Dizziness, Back pain, Constipation , Blood in stool, Dysuria, Urinary frequency, Decreased urine output, Decreased appetite, Vaginal bleeding, Vaginal discharge, Sore throat, Decreased activity Related History: Reports: Similar episode AAA Risk Factors: Reports: None Cardiac Risk Factors: Reports: Hypertension, Smoking, Elevated lipids Ectopic Risk Factors: Reports: None Ovarian Torsion Risk Factors: Reports: None Surgical Obstruction Risk Factors: Reports: None Related Surgical History: Reports: None Patient Rh Status: Unknown Abdominal Findings: Present: None Vaginal Exam: Present: Normal Findings Differential Diagnoses: Diverticulitis, Gastroenteritis, Pancreatitis, Pneumonia , PUD Quality Indicators for AMI: EKG in 10min. Review of Systems - Review Of Systems Constitutional: Reports: Fever, Malaise, Weakness Eyes: Reports: No symptoms Ears, Nose, Mouth, Throat: Reports: No symptoms Respiratory: Reports: Cough, Orthopnea, Short of air Cardiac: Reports: No symptoms GI: Reports: Abdominal pain, Nausea, Vomiting : Reports: No symptoms Musculoskeletal: Reports: No symptoms Skin: Reports: No symptoms Neurological: Reports: No symptoms Endocrine: Reports: No symptoms Hematologic/Lymphatic: Reports: No symptoms All Other Systems: Reviewed and Negative Past Medical History - Past Medical History Previously Healthy: No Endocrine: Reports: Hypothyroid, Dyslipidemia Cardiovascular: Reports: CAD, Hypertension Respiratory: Reports: COPD Hematological: Reports: Anemia Gastrointestinal: Reports: Unknown Genitourinary: Reports: CKD Neuro/Psych: Reports: Anxiety, Depression Musculoskeletal: Reports: Arthritis, Back Pain, Joint Pain Cancer: Reports: Lung (cancer s/p chemo.) - Surgical History General Surgical History: Reports: None - Family History Family History: Reports: Unknown - Social History Smoking Status: Current some day smoker Smoking Cessation Counseling Time: > 10 min Hx Substance Use: No Alcohol Screening: None Physical Exam - Physical Exam Appearance: Ill-appearing, Thin Ill-appearing: Moderate Pain Distress: Moderate Eyes: EOMI, Conjunctiva clear ENT: Ears normal, Nose normal, Oropharynx normal Respiratory: Breath sounds diminished, Crackles, Wheezes Cardiovascular: RRR, Pulses normal, No rub, No murmur GI/: Soft, Tender, Bowel sounds hypoactive Musculoskeletal: Normal strength, ROM intact, No edema, No calf tenderness Skin: Warm, Dry, Normal color Neurological: Sensation intact, Motor intact, Reflexes intact, Cranial nerves intact, Alert, Oriented Psychiatric: Affect appropriate, Mood appropriate Interpretation - Radiology Interpretation Radiology Interpretation By: Radiologist Radiology Results: Positive Exam Interpreted: CT Scan Re-Evaluation - Re-Evaluation Time of Re-Evaluation: 00:27 Status: Improved Physician Notification - Case Discussed Time of Notification: 00:28 (dR Bray, said trasf to [place] as patient may have post obstructive pneumonia) Critical Care Note - Critical Care Note Total Time (mins): 30 Course - Course Hematology/Chemistry: 02/10/18 22:50 02/10/18 22:50 Orders, Labs, Meds: Lab Review 02/10/18 02/10/18 02/10/18 22:33 22:50 22:50 WBC 16.28 H RBC 3.28 L Hgb 10.8 L Hct 32.9 L MCV 100.3 H MCH 32.9 H MCHC 32.8 RDW Coeff of Nika 20.1 H Plt Count 151 Neutrophils % (Manual) 89.0 H Band Neutrophils % 1.0 Lymphocytes % (Manual) 3.0 L Monocytes % (Manual) 4.0 Metamyelocytes % 2.0 Myelocytes % 1.0 Anisocytosis Not present Puncture Site Lrad O2 Saturation 99.0 ABG pH 7.455 H ABG pCO2 28.4 L ABG pO2 110.0 H ABG HCO3 20.0 L ABG Total CO2 21 L ABG Base Excess -4 L Macario Test + FiO2 % 21.0 Sodium 131 L Potassium 4.1 Chloride 94 L Carbon Dioxide 19 L Anion Gap 22.1 BUN 20 H Creatinine 1.60 H Estimated GFR (MDRD) 32.00 BUN/Creatinine Ratio 12.50 Glucose 179 H Lactic Acid Calcium 9.4 Total Bilirubin 1.1 AST 31 ALT 17 Alkaline Phosphatase 93 Total Protein 6.7 Albumin 2.0 L Globulin 4.7 Albumin/Globulin Ratio 0.43 Amylase 528 H* Lipase 38 Procalcitonin 02/10/18 02/10/18 22:50 22:50 WBC RBC Hgb Hct MCV MCH MCHC RDW Coeff of Nika Plt Count Neutrophils % (Manual) Band Neutrophils % Lymphocytes % (Manual) Monocytes % (Manual) Metamyelocytes % Myelocytes % Anisocytosis Puncture Site O2 Saturation ABG pH ABG pCO2 ABG pO2 ABG HCO3 ABG Total CO2 ABG Base Excess Macario Test FiO2 % Sodium Potassium Chloride Carbon Dioxide Anion Gap BUN Creatinine Estimated GFR (MDRD) BUN/Creatinine Ratio Glucose Lactic Acid 30.8 H Calcium Total Bilirubin AST ALT Alkaline Phosphatase Total Protein Albumin Globulin Albumin/Globulin Ratio Amylase Lipase Procalcitonin 2.57 Orders Category Date Time Status ABG DRAW REQUEST Stat CARDIO 02/10/18 22:34 Completed EKG-(ED ONLY) Stat CARDIO 02/10/18 22:35 Completed ED IV/MEDIPORT/POWERPORT .ONCE EMERGENCY 02/10/18 22:29 Active ABG Stat LAB 02/10/18 22:33 Completed AMYLASE Stat LAB 02/10/18 22:50 Completed BLOOD CULTURE Stat LAB 02/10/18 22:50 Received CBC W/ AUTO DIFF Stat LAB 02/10/18 22:50 Completed COMPREHENSIVE METABOLIC PANEL Stat LAB 02/10/18 22:50 Completed LACTIC ACID Stat LAB 02/10/18 22:50 Completed LIPASE Stat LAB 02/10/18 22:50 Completed MANUAL DIFFERENTIAL Stat LAB 02/10/18 22:50 Completed PROCALCITONIN Stat LAB 02/10/18 22:50 Completed SPUTUM CULTURE Stat LAB 02/10/18 23:54 Uncollected 0.9 % Sodium Chloride [Saline Flush] MEDS 02/10/18 22:29 Ordered 1 syr IVF PRN PRN Meperidine HCl/Pf [Demerol 50 mg/ml Vial] MEDS 02/10/18 22:29 Discontinued 25 mg IVP ONCE STA Ondansetron HCl/Pf [Zofran 4 mg/2 ml] MEDS 02/10/18 22:29 Discontinued 4 mg IVP ONCE STA Piperacillin Sodium/Tazobactam [Zosyn 3.375 gm] 3.375 MEDS 02/11/18 00:39 Ordered gm 0.9 % Sodium Chloride [Sodium Chloride] 50 ml IV ONCE Vancomycin HCl [Vancomycin] 1 gm MEDS 02/11/18 00:39 Ordered 0.9 % Sodium Chloride [Sodium Chloride] [address] ABDOMEN/PELVIS WO CONTRAST Stat RADS 02/10/18 22:[address] CHEST W/O CONTRAST Stat RADS 02/10/18 22:29 Completed Medications Generic Name Dose Route Start Last Admin Trade Name Freq PRN Reason Stop Dose Admin Piperacillin Sod/Tazobactam 50 mls @ 50 mls/hr 02/11/18 00:39 Sod 3.375 gm/ Sodium Chloride IV 02/11/18 01:38 ONCE STA Vancomycin HCl 1 gm/ Sodium 250 mls @ 250 mls/hr 02/11/18 00:39 Chloride IV 02/11/18 01:38 ONCE STA Sodium Chloride 1 syr 02/10/18 22:29 Saline Flush IVF PRN PRN To flush IV Discontinued Medications Generic Name Dose Route Start Last Admin Trade Name Freq PRN Reason Stop Dose Admin Meperidine HCl 25 mg 02/10/18 22:29 02/10/18 23:51 Demerol 50 Mg/Ml Vial IVP 02/10/18 22:30 25 mg ONCE STA Administration Ondansetron HCl 4 mg 02/10/18 22:29 02/10/18 23:51 Zofran 4 Mg/2 Ml IVP 02/10/18 22:30 4 mg ONCE STA Administration Vital Signs: Temp Pulse Resp BP Pulse Ox 02/10/18 22:26 97.1 F L 92 H 20 97/44 L 89 L Departure - Departure Time of Disposition: 00:31 Disposition: TSF SHORT-TRM HOSP Discharge Problem: Pneumonia Qualifiers: Pneumonia type: due to unspecified organism Laterality: right Lung location: lower lobe of lung Qualified Code(s): J18.1 - Lobar pneumonia, unspecified organism Constipation Qualifiers: Constipation type: drug induced constipation Qualified Code(s): K59.03 - Drug induced constipation Instructions: Pneumonitis (ED) Condition: Stable Pt referred to PMD for follow-up: Yes IPMP verified?: No Additional Instructions: Dr Adair accepted patient at [facility]. Allergies/Adverse Reactions: Allergies No Known Allergies Allergy (Verified 02/10/18 22:26) Home Medications: Ambulatory Orders Alprazolam 0.5 mg PO TID PRN 11/14/16 Aspirin [Aspirin EC] 81 mg PO DAILY 11/14/16 Clopidogrel Bisulfate [Clopidogrel] 75 mg PO DAILY 11/14/16 Fenofibrate 160 mg PO DAILY 11/14/16 Ferrous Sulfate 325 mg PO BID 11/14/16 Lisinopril 20 mg PO BID 11/14/16 Simvastatin [Zocor] 40 mg PO BEDTIME 11/14/16 Calcium Carbonate/Vitamin D3 [Calcium 600 + Vit D Tablet] 1 each PO DAILY Fish Oil/Dha/Epa [Fish Oil 1,200 mg Fish Oil] 1 each PO TID 11/15/16 Hydrocodone/Acetaminophen [Hydrocodon-Acetaminoph 7.5-325] 1 each PO TID PRN Pantoprazole Sodium [Protonix] 40 mg PO BIDAC 11/15/16 Travoprost Opth [Travatan Z] 1 drop OP BEDTIME 11/15/16 Dorzolamide HCl/Timolol Maleat [Dorzolamide-Timolol Eye Drops] 1 drop EACHEYE BID 12/16/16 Escitalopram Oxalate [Lexapro] 10 mg PO DAILY 12/16/16 Alendronate Sodium [Fosamax] 70 mg PO WEEKLY 01/07/18 Cimetidine 800 mg PO BID 01/07/18 Guaifenesin [Mucinex] 600 mg PO Q12H 01/07/18 Ondansetron HCl [Zofran] 8 mg PO QID 01/07/18 Ipratropium/Albuterol Neb [Duoneb] 1 vial NEB RTQ6H #120 vial.neb 01/11/18 Ipratropium/Albuterol Sulfate [Combivent Respimat Inhal [place]] 2 spray IH BID PRN #1 aero 01/11/18 Hydrocodone/Chlorphen Polis [Tussionex] 5 ml PO Q12H #100 ml 01/29/18 Levofloxacin [Levaquin] 500 mg PO QDAC #7 tablet 01/29/18 Prednisone 10 mg PO BIDWM #15 tablet 01/29/18 Disposition Discussed With: Patient, Family
--- NOTE | 2018-02-10 23:32 | CT ---
Exam: CT of the chest without contrast History: Lung carcinoma and pneumonia Technique: [address] of the chest without intravascular contrast FINDINGS: Compared with 01/22/2018. Large cavitary mass in the right upper lobe again noted with in creasing peripheral soft tissue density. Increasing consolidative change of the right middle lobe an d medial right lower lobe. No developing opacities on the left. Mild underlying emphysematous dang e. Heavy atherosclerotic vascular calcifications again noted. Left approach Port-A-Cath. No develo ping chest wall abnormalities. No developing abnormalities of the upper abdomen. Impression: 1. Right upper lobe cavitary mass again noted. Previous surrounding nodular pneumonia has progresse d to a consolidative pneumonia of the right upper, middle and lower lobe.
--- NOTE | 2018-02-10 23:44 | CT ---
Exam: CT of the abdomen and pelvis without contrast History: Abdominal pain Technique: [address] of the abdomen and pelvis without intravascular contrast FINDINGS: The lung bases are clear. No significant liver abnormality. The adrenals, pancreas and spl een are unremarkable. The stomach and hiatus are unremarkable.The gallbladder is distended but appear s normal otherwise. Kidneys and proximal collecting system are unremarkable. Atherosclerotic calcific ation of the aorta with infrarenal aneurysm measuring 3.5 x 3.3 cm previously 3.30 x 3.3 cm.. The ap pendix is normal. Moderate gunn colonic stool retention. Bowel loops demonstrate normal caliber. No i nflamatory change seen in the mesentery or retroperitoneum. Moderate distal stool retention. No pelvic fat inflammation. Prior hysterectomy. Normal, nondisten ded urinary bladder. No acute abnormality of the skeleton. Impression: 1. No inflammatory process, bowel or urinary obstruction is seen. 2. Abdominal aortic aneurysm with measurements as described. No periaortic stranding.
[2018-02-11] MEDS ORDERED: VANCOMYCIN 1 GM in SODIUM CHLORIDE 250 ML IV STA (00:39)
[2018-02-11] MEDS ORDERED: ZOSYN 3.375 GM 3.375 GM in SODIUM CHLORIDE 50 ML IV STA (00:39)
[2018-02-11] MEDS ORDERED: TYLENOL PO PRN (00:53)
[2018-02-11] MEDS ORDERED: NORCO 7.5-325 PO PRN (00:55)
[2018-02-11] MEDS ORDERED: MUCINEX PO SCH (01:00)
[2018-02-11] MEDS ORDERED: ZOSYN 3.375 GM 3.375 GM in SODIUM CHLORIDE 50 ML IV SCH (01:00)
[2018-02-11] MEDS ORDERED: SOLU-MEDROL 125 MG IVP SCH (01:00)
[2018-02-11] MEDS ORDERED: SODIUM CHLORIDE 1,000 ML IV SCH (01:00)
[2018-02-11] MEDS ORDERED: TUSSIONEX PO SCH (01:00)
[2018-02-11 01:49] VITALS: BMI 18.1
[2018-02-11] MEDS: DUONEB NEB SCH ×2 (05:00→11:01)
[2018-02-11] MEDS: PROTONIX PO SCH ×2 (05:31→16:20)
[2018-02-11] MEDS: DEMEROL 50 MG/ML VIAL IVP PRN ×2 (05:36→17:53)
[2018-02-11] MEDS ORDERED: CITRATE OF MAGNESIA PO STA ×2 (07:56→21:27)
[2018-02-11] MEDS ORDERED: NON-FORMULARY MEDICATION (Calcium Carbonate/Vitamin D3 [Calcium 600 + Vit D Tablet] 1 EACH PO SCH (09:00)
[2018-02-11] MEDS ORDERED: DHA PO SCH (09:00)
[2018-02-11] MEDS ORDERED: NON-FORMULARY MEDICATION (Lisinopril [Lisinopril] 20 MG) PO SCH (09:00)
[2018-02-11] MEDS ORDERED: VANCOMYCIN 1 GM in SODIUM CHLORIDE 250 ML IV SCH (09:00)
[2018-02-11] MEDS ORDERED: LOVENOX SUBCUT SCH (09:00)
[2018-02-11] MEDS ORDERED: FISH OIL PO SCH (09:00)
[2018-02-11] MEDS ORDERED: TAGAMET PO SCH (09:00)
[2018-02-11] MEDS ORDERED: NON-FORMULARY MEDICATION (Ferrous Sulfate [Ferrous Sulfate] 325 MG) PO SCH (09:00)
[2018-02-11] MEDS ORDERED: NON-FORMULARY MEDICATION (Ondansetron Hcl [Zofran] 8 MG) PO SCH (09:00)
[2018-02-11] MEDS ORDERED: EPA PO SCH (09:00)
[2018-02-11] MEDS: LOVENOX SUBCUT SCH (09:10)
[2018-02-11] MEDS: ZOFRAN TAB PO SCH ×4 (09:11→20:25)
[2018-02-11] MEDS: MUCINEX PO SCH ×2 (09:11→20:25)
[2018-02-11] MEDS: LEXAPRO PO SCH (09:11)
[2018-02-11] MEDS: PLAVIX PO SCH (09:11)
[2018-02-11] MEDS: FERROUS SULFATE PO SCH ×2 (09:11→20:25)
[2018-02-11] MEDS: OMEGA-3 FISH OIL PO SCH ×3 (09:11→20:26)
[2018-02-11] MEDS: ZESTRIL PO SCH ×2 (09:12→20:25)
[2018-02-11] MEDS: MIRALAX PO SCH (09:12)
[2018-02-11] MEDS: COSOPT OP SCH ×2 (09:12→20:26)
[2018-02-11] MEDS: CALCIUM 500 + VIT D 200 MG TABLET PO SCH (09:12)
[2018-02-11] MEDS: ASPIRIN EC PO SCH (09:12)
[2018-02-11] MEDS: ZANTAC PO SCH ×2 (09:13→16:21)
[2018-02-11] MEDS: TUSSIONEX PO SCH ×2 (09:16→20:25)
[2018-02-11] MEDS: MAXIPIME 2 GM in SODIUM CHLORIDE 100 ML IV SCH ×2 (09:47→21:21)
[2018-02-11] MEDS: FLAGYL 500 MG/100 ML 500 MG in PREMIX 100 ML NS 1 BAG IV SCH ×2 (12:27→20:14)
[2018-02-11] MEDS: SOLU-MEDROL 125 MG IVP SCH ×2 (12:30→20:15)
[2018-02-11] MEDS: XOPENEX 1.25 MG NEB SCH (17:33)
[2018-02-11] MEDS ORDERED: LASIX IVP STA (17:42)
[2018-02-11] MEDS ORDERED: SOLU-MEDROL 125 MG IVP STA (17:42)
[2018-02-11] MEDS: TRAVATAN Z OP SCH (20:25)
[2018-02-11] MEDS ORDERED: ZOCOR PO SCH (21:00)
[2018-02-11] MEDS ORDERED: CITRATE OF MAGNESIA ONE (21:24)
[2018-02-12] MEDS: XOPENEX 1.25 MG NEB SCH ×5 (01:08→23:05)
[2018-02-12] MEDS: PROTONIX PO SCH ×2 (05:34→18:35)
[2018-02-12] MEDS: SOLU-MEDROL 125 MG IVP SCH ×3 (05:34→22:58)
[2018-02-12] MEDS: FLAGYL 500 MG/100 ML 500 MG in PREMIX 100 ML NS 1 BAG IV SCH ×3 (05:34→20:05)
[2018-02-12] MEDS: ZANTAC PO SCH (05:34)
[2018-02-12] MEDS: MAXIPIME 2 GM in SODIUM CHLORIDE 100 ML IV SCH (08:00)
[2018-02-12] MEDS ORDERED: SODIUM CHLORIDE 1,000 ML IV SCH ×2 (08:30→19:30)
[2018-02-12] MEDS ORDERED: VANCOMYCIN 1 GM in SODIUM CHLORIDE 250 ML IV SCH (09:00)
[2018-02-12] MEDS: MIRALAX PO SCH (09:21)
[2018-02-12] MEDS: ZESTRIL PO SCH (09:21)
[2018-02-12] MEDS: NORCO 7.5-325 PO PRN ×2 (09:21→23:48)
[2018-02-12] MEDS: OMEGA-3 FISH OIL PO SCH ×3 (09:21→20:03)
[2018-02-12] MEDS: MUCINEX PO SCH (09:22)
[2018-02-12] MEDS: PLAVIX PO SCH (09:22)
[2018-02-12] MEDS: FERROUS SULFATE PO SCH (09:22)
[2018-02-12] MEDS: LEXAPRO PO SCH (09:22)
[2018-02-12] MEDS: ZOFRAN TAB PO SCH ×2 (09:22→13:34)
[2018-02-12] MEDS: ASPIRIN EC PO SCH (09:22)
[2018-02-12] MEDS: LOVENOX SUBCUT SCH (09:26)
--- NOTE | 2018-02-12 09:33 | CT ---
EXAM: CT of the abdomen and pelvis without contrast History: Abdominal pain. Comparison: CT abdomen pelvis 02/10/2018 Technique: Multiplanar CT images through the abdomen pelvis were obtained without the administration of IV contrast Findings: Subsegmental atelectasis seen at the lung bases. There is bronchial wall thickening within the lower lungs. No acute osseous abnormalities. Severe degenerative disc disease at L3-L4. Gallbladder is distended. No focal liver or splenic lesions. Mild stranding seen adjacent to the pa ncreatic tail. Adrenal glands are unremarkable. The left kidney is smaller than the right. No hydr onephrosis. No change in the abdominal aortic aneurysm. The appendix is not dilated or inflamed. F luid seen in the stomach. A few borderline dilated fluid-filled loops of small bowel. There is wall thickening of the transverse colon adjacent inflammation. No free air. Kuo catheter in a decompr essed bladder. Impression: 1. Colitis of the transverse colon. 2. Mildly dilated fluid-filled loops of small bowel probably due to enteritis or ileus. A partial s mall bowel obstruction is considered less likely but not excluded. 3. Distended gallbladder. Recommend further evaluation with abdominal ultrasound. 4. No change in the abdominal aortic aneurysm. 5. Mild stranding adjacent to the pancreatic tail. Correlate with pancreatic enzymes.
[2018-02-12] MEDS: CALCIUM 500 + VIT D 200 MG TABLET PO SCH (09:35)
[2018-02-12] MEDS: TUSSIONEX PO SCH ×2 (09:36→20:03)
[2018-02-12] MEDS: COSOPT OP SCH ×2 (09:36→20:06)
[2018-02-12] MEDS ORDERED: KAYEXALATE SUSP PO STA (10:27)
[2018-02-12] MEDS: VANCOCIN PO SCH ×4 (12:52→23:48)
--- NOTE | 2018-02-12 13:20 | PN ---
DATE OF SERVICE: 02/11/18 SUBJECTIVE: The patient was admitted from the emergency for the right lung pneumonia, upper , middle and lower with constipation and obstipation. REVIEW OF SYSTEMS: CONSTITUTIONAL: No fever, no chills. HEENT: Normal. ENDOCRINE: No weight gain, no weight loss. CVS: No angina symptoms. No CHF symptoms. No palpitations. No atypical chest pain for CAD. No shortness of breath. No PND, no orthopnea. RESPIRATORY: Cough, no hemoptysis. GI: No nausea, no vomiting. Abdominal pain. : No hematuria. No polyuria. MUSCULOSKELETAL: No joint swelling. PSYCHIATRIC: Not anxious. No depression. No suicidal thoughts. No homicidal thoughts. SKIN: Intact. No rash. PHYSICAL EXAMINATION: V/S: Blood pressure 102/70, respiratory rate 20, heart rate 112, temperature 97.9 with saturation 95%. HEENT: Normocephalic, atraumatic. Mucosa dry. Pallor positive. No icterus. NECK: Supple. No JVD, no carotid bruit. No lymphadenopathy. LUNGS: Decreased and basilar crackles. Clear to auscultation. No rales or rhonchi. HEART: S1, S2 normal. No S3. No murmur, gallop or regurgitation. ABDOMEN: Soft, nontender. Bowel sounds sluggish. No rigidity. No rebound or guarding. No CVA tenderness. EXTREMITIES: No cyanosis, clubbing or pedal edema. MUSCULOSKELETAL: No joint swelling. NEUROLOGIC: Awake, alert, oriented times three. No focal deficit. LYMPHATIC: No lymph nodes palpable. SKIN: Intact. LABS: WBC 11.31, hgb 10.3, hct 31.6, plt count 130, sodium 131, potassium 4.2, chloride 96, bicarb 18, BUN 26, creatinine 1.70 and glucose 219. ASSESSMENT: 1. Acute abdominal pain 2. Elevated amylase 3. Constipation 4. Right sided pneumonia, right upper, lower and middle lobe 5. Right upper lobe lung cancer, status post chemo and radiation 6. COPD 7. Hypertension 8. Dyslipidemia PLAN: 1. Continue Flagyl 2. Vancomycin 3. Zosyn 4. Daily I&O's 5. Solu-Medrol TIME SPENT: More than 35 minutes MTDD
[2018-02-12] MEDS ORDERED: ZOFRAN 4 MG/2 ML IVP PRN (14:26)
[2018-02-12] MEDS: DEMEROL 50 MG/ML VIAL IVP PRN (15:35)
[2018-02-12] MEDS ORDERED: TRANSDERM-SCOP 1.5 MG PATCH TD SCH (16:00)
[2018-02-12] MEDS: NYSTATIN ORAL SUSP PO SCH ×2 (18:28→20:03)
[2018-02-12] MEDS: SODIUM CHLORIDE 1,000 ML IV SCH (19:07)
[2018-02-12] MEDS: TRAVATAN Z OP SCH (20:03)
[2018-02-12] MEDS ORDERED: VANCOCIN PO SCH (21:00)
[2018-02-13] MEDS: SOLU-MEDROL 125 MG IVP SCH ×3 (04:42→21:36)
[2018-02-13] MEDS: FLAGYL 500 MG/100 ML 500 MG in PREMIX 100 ML NS 1 BAG IV SCH ×2 (04:42→12:59)
[2018-02-13] MEDS: XOPENEX 1.25 MG NEB SCH ×3 (05:22→17:00)
[2018-02-13] MEDS: PROTONIX PO SCH ×2 (06:08→16:31)
[2018-02-13] MEDS: NYSTATIN ORAL SUSP PO SCH ×4 (06:08→21:36)
[2018-02-13] MEDS: VANCOCIN PO SCH ×2 (06:35→12:59)
[2018-02-13] MEDS: DEMEROL 50 MG/ML VIAL IVP PRN ×3 (07:36→20:46)
[2018-02-13] MEDS: TUSSIONEX PO SCH ×2 (08:21→21:36)
[2018-02-13] MEDS: OMEGA-3 FISH OIL PO SCH ×3 (08:21→21:35)
[2018-02-13] MEDS: MIRALAX PO SCH (08:21)
[2018-02-13] MEDS: PLAVIX PO SCH (08:21)
[2018-02-13] MEDS: ASPIRIN EC PO SCH (08:21)
[2018-02-13] MEDS: LOVENOX SUBCUT SCH (08:22)
[2018-02-13] MEDS: LEXAPRO PO SCH (08:32)
[2018-02-13] MEDS: MAXIPIME 2 GM in SODIUM CHLORIDE 100 ML IV SCH (08:33)
[2018-02-13] MEDS: COSOPT OP SCH ×2 (08:37→21:37)
[2018-02-13] MEDS: NORCO 7.5-325 PO PRN ×2 (11:54→18:51)
[2018-02-13] MEDS: SODIUM CHLORIDE 1,000 ML IV SCH (13:32)
[2018-02-13] MEDS ORDERED: SODIUM CHLORIDE 1,000 ML IV SCH ×2 (14:00→19:00)
[2018-02-13] MEDS: XANAX PO PRN (19:18)
[2018-02-13] MEDS: TRAVATAN Z OP SCH (21:35)
[2018-02-14] MEDS: XOPENEX 1.25 MG NEB SCH ×5 (00:12→23:28)
[2018-02-14] MEDS: DEMEROL 50 MG/ML VIAL IVP PRN ×2 (04:50→10:40)
[2018-02-14] MEDS: PROTONIX PO SCH ×2 (05:50→17:10)
[2018-02-14] MEDS: NYSTATIN ORAL SUSP PO SCH ×4 (05:50→20:31)
[2018-02-14] MEDS: SOLU-MEDROL 125 MG IVP SCH ×3 (05:51→20:47)
[2018-02-14] MEDS: OMEGA-3 FISH OIL PO SCH ×3 (08:43→20:31)
[2018-02-14] MEDS: MAXIPIME 2 GM in SODIUM CHLORIDE 100 ML IV SCH (08:43)
[2018-02-14] MEDS: MIRALAX PO SCH (08:43)
[2018-02-14] MEDS: LEXAPRO PO SCH (08:43)
[2018-02-14] MEDS: COSOPT OP SCH ×2 (08:44→20:32)
[2018-02-14] MEDS: TUSSIONEX PO SCH ×2 (08:46→20:31)
[2018-02-14] MEDS ORDERED: SODIUM CHLORIDE 1,000 ML IV SCH ×2 (14:00→18:30)
--- NOTE | 2018-02-14 15:08 | DI ---
EXAM: Single view of the abdomen. History: Ileus. Comparison: CT abdomen pelvis 02/12/2018 Findings: Nonspecific but nonobstructive bowel gas pattern. Stomach is moderately distended with ai r. No free intraperitoneal air. No acute osseous abnormalities. Degenerative changes of the lumbar spine. Atherosclerotic vascular calcifications. Scattered colonic stool. Impression: Nonspecific but nonobstructive bowel gas pattern.
[2018-02-14] MEDS: NORCO 7.5-325 PO PRN (17:14)
[2018-02-14] MEDS: XANAX PO PRN (17:14)
[2018-02-14] MEDS ORDERED: CITRATE OF MAGNESIA PO STA (17:56)
[2018-02-14] MEDS: COREG PO SCH (18:17)
[2018-02-14] MEDS: TRAVATAN Z OP SCH (20:31)
[2018-02-15] MEDS: XOPENEX 1.25 MG NEB SCH ×4 (05:00→23:20)
[2018-02-15] MEDS: PROTONIX PO SCH ×2 (05:55→16:51)
[2018-02-15] MEDS: SOLU-MEDROL 125 MG IVP SCH (05:55)
[2018-02-15] MEDS: NYSTATIN ORAL SUSP PO SCH ×4 (05:55→20:16)
[2018-02-15] MEDS: MAXIPIME 2 GM in SODIUM CHLORIDE 100 ML IV SCH (08:43)
[2018-02-15] MEDS: OMEGA-3 FISH OIL PO SCH ×3 (08:43→20:16)
[2018-02-15] MEDS: MIRALAX PO SCH (08:43)
[2018-02-15] MEDS: TUSSIONEX PO SCH ×2 (08:43→20:16)
[2018-02-15] MEDS: COREG PO SCH ×2 (08:43→16:51)
[2018-02-15] MEDS: DEMEROL 50 MG/ML VIAL IVP PRN ×2 (08:44→21:00)
[2018-02-15] MEDS: COSOPT OP SCH ×2 (08:44→20:16)
[2018-02-15] MEDS: LEXAPRO PO SCH (08:44)
[2018-02-15] MEDS ORDERED: CITRATE OF MAGNESIA PO STA (09:58)
[2018-02-15] MEDS ORDERED: DULCOLAX RC STA (09:59)
[2018-02-15] MEDS ORDERED: COREG PO ONE (11:00)
[2018-02-15] MEDS: SOLU-MEDROL 40 MG IVP SCH ×2 (13:31→21:00)
[2018-02-15] MEDS: NORCO 7.5-325 PO PRN (17:47)
[2018-02-15] MEDS: TRAVATAN Z OP SCH (20:16)
[2018-02-15] MEDS: XANAX PO PRN (20:59)
[2018-02-16] MEDS: SODIUM CHLORIDE 1,000 ML IV SCH (00:35)
[2018-02-16] MEDS: XOPENEX 1.25 MG NEB SCH ×4 (04:40→22:25)
[2018-02-16] MEDS: SOLU-MEDROL 40 MG IVP SCH ×3 (05:40→22:13)
[2018-02-16] MEDS: NYSTATIN ORAL SUSP PO SCH ×4 (05:41→22:13)
[2018-02-16] MEDS: PROTONIX PO SCH ×2 (05:41→17:03)
[2018-02-16] MEDS: OMEGA-3 FISH OIL PO SCH ×3 (08:54→22:13)
[2018-02-16] MEDS: MAXIPIME 2 GM in SODIUM CHLORIDE 100 ML IV SCH (08:55)
[2018-02-16] MEDS: MIRALAX PO SCH (08:55)
[2018-02-16] MEDS: TUSSIONEX PO SCH ×2 (08:55→22:13)
[2018-02-16] MEDS: LEXAPRO PO SCH (08:55)
[2018-02-16] MEDS: COREG PO SCH ×2 (08:55→17:03)
[2018-02-16] MEDS: COSOPT OP SCH ×2 (08:56→22:13)
--- NOTE | 2018-02-16 13:39 | PN ---
DATE OF SERVICE: 02/12/18 SUBJECTIVE: The patient did have a change in status yesterday night, Nurse December called complaining that patient had been short of breath and gargling. Dose of Lasix was given. Today morning more lethargic. Abdominal pain is still present but no nausea or vomiting. REVIEW OF SYSTEMS: CONSTITUTIONAL: No fever, no chills. HEENT: Normal. ENDOCRINE: No weight gain, no weight loss. CVS: No angina symptoms. No CHF symptoms. No palpitations. No atypical chest pain for CAD. No shortness of breath. No PND, no orthopnea. RESPIRATORY: No cough, no hemoptysis. GI: No nausea, no vomiting. No abdominal pain. : No hematuria. No polyuria. MUSCULOSKELETAL: No joint swelling. PSYCHIATRIC: Not anxious. No depression. No suicidal thoughts. No homicidal thoughts. SKIN: Intact. No rash. PHYSICAL EXAMINATION: V/S: Blood pressure 121/72, respiratory 14, heart rate 114, temperature 97.8 with saturation 92 on 2 liters. HEENT: Normocephalic, atraumatic. Mucosa dry. Pallor positive. No icterus. NECK: Supple. No JVD, no carotid bruit. No lymphadenopathy. LUNGS: Decreased and basilar crackles. Right sided crackles are more than the left and the wheezing is present on the right side. Clear to auscultation. No rales or rhonchi. HEART: S1, S2 normal. No S3. No murmur, gallop or regurgitation. ABDOMEN: Soft, abdominal tenderness is present. Bowel sounds sluggish. No rigidity. No rebound or guarding. No CVA tenderness. EXTREMITIES: No cyanosis, clubbing or pedal edema. MUSCULOSKELETAL: No joint swelling. NEUROLOGIC: Awake, alert, oriented times three. Wakes from the verbal stimuli and goes back to sleep. No focal deficit. LYMPHATIC: No lymph nodes palpable. SKIN: Intact. LABS: WBC 11.48, hgb 10.7, hct 33.3, plt count 154, sodium 132, potassium 5.5, chloride 89, bicarb 21, BUN 42, creatinine 2.09, glucose 216. ASSESSMENT: 1. Acute renal failure 2. Hyperkalemia 3. Abdominal pain with pancreatitis 4. Right upper, middle and lower lobe pneumonia 5. Colitis per the CAT scan 6. Acute renal failure 7. Anemia PLAN: 1. Will stop the Vancomycin IV 2. Go with the Vancomycin PO in review of colitis and pancreatitis 3. Will stop the Zosyn and change it to the Cefepime 4. In review of recent hospitalization and new pneumonia we will be treating it as a hospital acquired pneumonia and colitis will cover the anaerobic coverage. Did explain to the patient's son who is her power of associate attorney as the patient's admission is getting complicated. Offered if he wants to be transferred to the [facility] and to be seen by the patient's computer forensics investigator Dr. Cordero. He did take some time and answered back saying no and I did explain the worsening effect that kidney function can get worse and given the patient's condition maybe not candidate for hemodialysis at this time. He verbalized understanding and he wanted to take a chance by keeping the patient here and patient being made DNR from [facility]. TIME SPENT: More than 35-45 minutes MTDD
--- NOTE | 2018-02-16 14:40 | PN ---
DATE OF SERVICE: 02/12/18 SUBJECTIVE: The patient's condition over the day did deteriorate and was not able to talk. Repeat BUN and creatinine went up to 59 BUN and creatinine 2.60. Potassium is 5.3. Again explained about the hemodialysis chance, refused the patient's to be transferred. The patient is agreeable for the worse outcome. All family members are here but by evening the patient was more awake, alert and talking. Took oral pain medication and was still having the abdominal pain. TIME SPENT: More than 35 minutes MTDD
--- NOTE | 2018-02-16 15:54 | PN ---
DATE OF SERVICE: 02/13/18 SUBJECTIVE: The patient is more awake and says that she is feeling good. Urine output is so far, I'll be seeing the patient around 1:00 so far since morning 7:00 been normal. Urine output is almost 345ml. The patient has been getting IV fluids at 45ml per hour. Did get the blood work. BUN went up to 70 and creatinine is 2.65. Hgb is 8.3. The patient's son is very happy that the patient is more awake and alert. Did explain that we have give the blood transfusion and reassured that we would do everything possible regarding the IV antibiotics and blood work schmidt. He still does not want to transfer the patient to the higher center and knowing the patient's poor prognosis. REVIEW OF SYSTEMS: CONSTITUTIONAL: No fever, no chills. HEENT: Normal. ENDOCRINE: No weight gain, no weight loss. CVS: No angina symptoms. No CHF symptoms. No palpitations. No atypical chest pain for CAD. No shortness of breath. No PND, no orthopnea. RESPIRATORY: No cough, no hemoptysis. GI: No nausea, no vomiting. No abdominal pain. : No hematuria. No polyuria. MUSCULOSKELETAL: No joint swelling. PSYCHIATRIC: Not anxious. No depression. No suicidal thoughts. No homicidal thoughts. SKIN: Intact. No rash. PHYSICAL EXAMINATION: V/S: Blood pressure 120/69, respiratory rate 20, heart rate 115 and temperature 99.1 with saturation 93%. HEENT: Normocephalic, atraumatic. Mucosa dry. Pallor positive. No icterus. NECK: Supple. No JVD, no carotid bruit. No lymphadenopathy. LUNGS: Decreased and basilar crackles much more increase. Clear to auscultation. No rales or rhonchi. HEART: S1, S2 normal. No S3. No murmur, gallop or regurgitation. ABDOMEN: Soft, nontender. Bowel sounds very sluggish. No rigidity. No rebound or guarding. No CVA tenderness. EXTREMITIES: No cyanosis, clubbing or pedal edema. MUSCULOSKELETAL: No joint swelling. NEUROLOGIC: Awake, alert, oriented times three. Very much active and says that I want you to come whenever I call you Dr. Vega and I did agree for that. No focal deficit. LYMPHATIC: No lymph nodes palpable. SKIN: Intact. ASSESSMENT: 1. Acute renal failure 2. Pancreatitis 3. Anemia with questionable GI bleed 4. Right upper, lower and middle lobe pneumonia 5. Colitis on the CAT scan 6. Small bowel obstruction with antibiotics AVS 7. Distended gallbladder 8. Mild stranding adjacent to the tail of the pancreas. 9. History of colitis 10.Pancreatitis 11.Anemia possibly needing blood transfusion PLAN: 1. Increase the increase the IV fluids to 70ml per hour during the day time and 42ml at night time 2. Continue the Cefepime as pseudomonas grew in the sputum 3. Stop the Vancomycin PO and Flagyl IV 4. Stop the aspirin 5. Lovenox been on hold last 24 hours 6. Did explain again about the poor outcome. The patient and family is agreeable and insisted on no transfer at this time. TIME SPENT: More than 35 minutes MTDD
[2018-02-16] MEDS: XANAX PO PRN (17:13)
[2018-02-16] MEDS: NORCO 7.5-325 PO PRN (17:13)
[2018-02-16] MEDS: TRAVATAN Z OP SCH (22:13)
[2018-02-17] MEDS: SODIUM CHLORIDE 1,000 ML IV SCH (00:33)
[2018-02-17] MEDS: XOPENEX 1.25 MG NEB SCH ×4 (04:53→23:20)
[2018-02-17] MEDS: PROTONIX PO SCH ×2 (06:18→16:47)
[2018-02-17] MEDS: SOLU-MEDROL 40 MG IVP SCH ×3 (06:19→20:05)
[2018-02-17] MEDS: NYSTATIN ORAL SUSP PO SCH ×4 (06:21→20:05)
[2018-02-17] MEDS: XANAX PO PRN ×2 (07:32→20:05)
[2018-02-17] MEDS: MIRALAX PO SCH (08:26)
[2018-02-17] MEDS: TUSSIONEX PO SCH ×2 (08:26→20:04)
[2018-02-17] MEDS: MAXIPIME 2 GM in SODIUM CHLORIDE 100 ML IV SCH ×2 (08:26→20:04)
[2018-02-17] MEDS: COSOPT OP SCH ×2 (08:27→20:05)
[2018-02-17] MEDS: LEXAPRO PO SCH (08:27)
[2018-02-17] MEDS: COREG PO SCH ×2 (08:27→16:47)
[2018-02-17] MEDS: OMEGA-3 FISH OIL PO SCH ×3 (08:27→20:05)
--- NOTE | 2018-02-17 11:19 | PN ---
DATE OF SERVICE: 02/15/18 SUBJECTIVE: The patient is sitting in the chair feeling a lot better, coughing some, moving gas, unable to take two steps. She is taking soft diet well. Amylase and lipase is getting better. Amylase is 222 today. BUN and creatinine have improved, 51 and 1.35. She has not had any bowel movement today. REVIEW OF SYSTEMS: CONSTITUTIONAL: No fever, no chills. HEENT: Normal. ENDOCRINE: No weight gain, no weight loss. CVS: No angina symptoms. No CHF symptoms. No palpitations. No atypical chest pain for CAD. No shortness of breath. No PND, no orthopnea. RESPIRATORY: Cough. No hemoptysis. GI: No nausea, no vomiting. No abdominal pain. : No hematuria. No polyuria. MUSCULOSKELETAL: No joint swelling. PSYCHIATRIC: Not anxious. No depression. No suicidal thoughts. No homicidal thoughts. SKIN: Intact. No rash. PHYSICAL EXAMINATION: V/S: BP 141/84, respiratory rate 22, heart rate 109, respiratory rate is 97.6, saturation 89 on 2L. HEENT: Normocephalic, atraumatic. Mucosa dry, pallor positive. No icterus. NECK: Supple. No JVD, no carotid bruit. No lymphadenopathy. LUNGS: Decreased entry with basilar crackles. HEART: S1, S2 normal. No S3. No murmur, gallop or regurgitation. ABDOMEN: Soft, nontender. Bowel sounds are very sluggish. No rigidity. No rebound or guarding. No CVA tenderness. EXTREMITIES: No cyanosis, clubbing or pedal edema. MUSCULOSKELETAL: No joint swelling. NEUROLOGIC: Awake, alert, oriented times three. No focal deficit. LYMPHATIC: No lymph nodes palpable. SKIN: Intact. LABS: Sodium 139, potassium 4.4, chloride 103, bicarb 22, BUN 51, creatinine 1.35, glucose 170. White count 17.07, hemoglobin 11.6, hematocrit 36.1, platelet count 72. ASSESSMENT: 1. RIGHT-SIDED PNEUMONIA, UPPER, MIDDLE AND LOWER LOBE PER CT SCAN 2. ACUTE PANCREATITIS 3. AMYLASE, LIPASE IS BETTER 4. COLITIS PER CT SCAN 5. CONSTIPATION 6. HISTORY OF LUNG CANCER 7. ANEMIA NEEDING BLOOD TRANSFUSION 8. HYPERTENSION 9. COPD 10. THROMBOCYTOPENIA PLAN: 1. Continue antibiotic Cefepime 2. IV fluids at 70/mL/hr during the daytime 3. Daily I & O's 4. Demerol for pain TIME SPENT: More than 35 minutes MTDD
--- NOTE | 2018-02-17 11:50 | PN ---
DATE OF SERVICE: 02/14/18 SUBJECTIVE: The patient is admitted with left-sided pneumonia and acute pancreatitis. The patient is feeling better. Urine output is good. Hemoglobin up to 8.6 from 7.5, two units blood transfusion given with consent. Hemoglobin is 10.5. BUN and creatinine are improving. Still hurting in the abdomen. No nausea or vomiting. REVIEW OF SYSTEMS: CONSTITUTIONAL: No fever, no chills. HEENT: Normal. ENDOCRINE: No weight gain, no weight loss. CVS: No angina symptoms. No CHF symptoms. No palpitations. No atypical chest pain for CAD. No shortness of breath. No PND, no orthopnea. RESPIRATORY: No cough, no hemoptysis. GI: No nausea, no vomiting. Positive for abdominal pain. : No hematuria. No polyuria. MUSCULOSKELETAL: No joint swelling. PSYCHIATRIC: Not anxious. No depression. No suicidal thoughts. No homicidal thoughts. SKIN: Intact. No rash. PHYSICAL EXAMINATION: V/S: BP 139/74, respiratory rate 22, temperature 98, saturation 94. HEENT: Normocephalic, atraumatic. Mucosa dry. Pallor positive. No icterus. NECK: Supple. No JVD, no carotid bruit. No lymphadenopathy. LUNGS: Decreased with fine crackles. HEART: S1, S2 normal. No S3. No murmur, gallop or regurgitation. ABDOMEN: Soft, tender to touch. Bowel sounds are very sluggish. No rigidity. No rebound or guarding. No CVA tenderness. EXTREMITIES: No cyanosis, clubbing or pedal edema. MUSCULOSKELETAL: No joint swelling. NEUROLOGIC: Awake, alert, oriented times three. No focal deficit. LYMPHATIC: No lymph nodes palpable. SKIN: Intact. LABS: White count 14.05, hemoglobin 10.5, hematocrit 31.2, platelet count 66. Sodium 139, potassium 4.4, chloride 103, bicarb 22, BUN 56, creatinine 1.94, glucose 144. ASSESSMENT: 1. RIGHT LUNG PNEUMONIA, UPPER, MIDDLE AND LOWER LOBE 2. PANCREATITIS 3. COLITIS 4. ACUTE RENAL FAILURE WHICH IS IMPROVING 5. ANEMIA NEEDING BLOOD TRANSFUSION 6. HISTORY OF LUNG CANCER STATUS POST CHEMOTHERAPY AND RADIATION 7. PANCREATITIS 8. COLITIS 9. CONSTIPATION PLAN: 1. Continue Cefepime 2. IV fluids 3. H & H 4. Mag Citrate TIME SPENT: More than 35 minutes MTDD
[2018-02-17] MEDS: MEGACE PO SCH (13:12)
--- NOTE | 2018-02-17 15:38 | DI ---
EXAM: Single view of the chest. History: Follow-up pneumonia, cough. Comparison: Chest radiograph 01/26/2018, chest CT 02/10/2018 Findings: Heart size is normal. Left central line seen in place. Persistent large cavitary lesion within the right upper hemithorax. Developing left lower lobe infiltrate. There may be a small left pleural effusion. No pneumothorax. No acute osseous abnormalities. Atherosclerotic vascular calci fications. Impression: 1. Left lower lobe pneumonia. 2. No change in the large right upper lobe cavitary lesion.
[2018-02-17] MEDS: TRAVATAN Z OP SCH (20:04)
[2018-02-17] MEDS: NORCO 7.5-325 PO PRN (20:05)
[2018-02-18] MEDS: SODIUM CHLORIDE 1,000 ML IV SCH ×2 (00:04→01:50)
[2018-02-18] MEDS: XOPENEX 1.25 MG NEB SCH ×2 (04:25→11:12)
[2018-02-18] MEDS: NYSTATIN ORAL SUSP PO SCH ×2 (05:52→10:03)
[2018-02-18] MEDS: SOLU-MEDROL 40 MG IVP SCH ×2 (05:52→13:12)
[2018-02-18] MEDS: PROTONIX PO SCH (05:52)
[2018-02-18] MEDS: TUSSIONEX PO SCH (08:04)
[2018-02-18] MEDS: MAXIPIME 2 GM in SODIUM CHLORIDE 100 ML IV SCH (08:04)
[2018-02-18] MEDS: COREG PO SCH ×2 (08:04→08:17)
[2018-02-18] MEDS: MIRALAX PO SCH (08:04)
[2018-02-18] MEDS: MEGACE PO SCH (08:04)
[2018-02-18] MEDS: OMEGA-3 FISH OIL PO SCH (08:05)
[2018-02-18] MEDS: LEXAPRO PO SCH (08:05)
[2018-02-18] MEDS: COSOPT OP SCH (08:05)
[2018-02-18] MEDS: NORCO 7.5-325 PO PRN (08:07)
[2018-02-18] MEDS: XANAX PO PRN (08:07)
[2018-02-18] MEDS ORDERED: CLEOCIN 300 MG in SODIUM CHLORIDE 50 ML IV SCH (08:30)
[2018-02-18] MEDS ORDERED: COREG PO SCH ×2 (08:30)
[2018-02-18] MEDS ORDERED: LASIX IVP STA (08:48)
[2018-02-18] MEDS: CLEOCIN 600 MG in SODIUM CHLORIDE 50 ML IV SCH ×2 (10:03→13:12)
[2018-02-18 10:20] VITALS: BP 149/73; TEMP 98.2
[2018-02-18] MEDS ORDERED: XOPENEX 1.25 MG NEB STA (12:00)
--- NOTE | 2018-03-12 13:16 | DS ---
DATE OF SERVICE: 02/18/18 FINAL DIAGNOSIS: 1. PNEUMONIA, RIGHT MIDDLE, UPPER AND LOWER LOBE, PSEUDOMONAS POSITIVE 2. LUNG CANCER, STATUS POST RADIATION AND CHEMOTHERAPY, DR. ARRIAGA 3. ACUTE RENAL FAILURE, IMPROVING 4. COLITIS/ENTERITIS PER CT 5. ANEMIA NEEDING BLOOD TRANSFUSION 6. CAD STATUS POST BYPASS SURGERY 7. HYPERTENSION 8. DYSLIPIDEMIA 9. INFRARENAL FUSIFORM AAA 10. COPD 11. CERVICAL CANCER STATUS POST HYSTERECTOMY 12. DIVERTICULOSIS 13. ANXIETY/DEPRESSION 14. OSTEOARTHRITIS 15. DJD SPINE DISCHARGE INSTRUCTIONS: Admit the patient to the Transitional Care Unit. MEDICATIONS AT DISCHARGE: Continue Cefepime Solu-Medrol Pain medication Demerol, [facility] Xopenex Medication Management, labs Coreg 12.5 mg twice a day NEW PRESCRIPTIONS: None DIET INSTRUCTIONS: Cardiac and Healthy ACTIVITY: Complete bedrest SMOKING: N/A DISEASE SPECIFIC EDUCATION: Pneumonia, antibiotic use and diarrhea have been discussed, verbalized understanding. HOSPITAL COURSE: This is a 72-year-old female recently discharged from the hospital by Dr. Waddell. She came back to the emergency room with abdominal pain, nausea, cough, congestion, and shortness of breath. She was found to have acute pancreatitis and right side upper lobe, middle lobe and lower lobe pneumonia. The patient was admitted to the hospital, started on Rocephin, Vancomycin because of the health care facility acquired pneumonia. Colitis was seen on the CT scan so Flagyl was given. The patient stay was complicated with acute renal failure, BUN and creatinine went up to 70 and 2.65. Urine output was scanty. Amylase, lipase was high. Amylase 560. ABG was done that showed pH 7.455, pc02 28.4, p02 110. Gradually the white count was getting better. Hemoglobin dropped to 7.5. We had to give 2 units of blood transfusion. The patient's platelet count gradually dropping to 120, 108, 66, 72, 40. She started having leg edema and swelling, some cough and congestion. The patient was complaining that she was not feeling good today. Given the patient's persistent pneumonia, needing IV antibiotics, will plan putting the patient in Transitional Care Unit. SPECIFIC ORDERS: 1. Continue telemetry TIME SPENT: MORE THAN 65 MINUTES MTDD
--- NOTE | 2018-03-12 13:32 | PN ---
DATE OF SERVICE: 02/17/18 SUBJECTIVE: The patient is up and about sitting in the chair, not in any distress. She is coughing. No fever, no chills. No leg edema. Urine output is getting better. REVIEW OF SYSTEMS: CONSTITUTIONAL: No fever, no chills. HEENT: Normal. ENDOCRINE: No weight gain, no weight loss. CVS: No angina symptoms. No CHF symptoms. No palpitations. No atypical chest pain for CAD. No shortness of breath. No PND, no orthopnea. RESPIRATORY: Coughing. No hemoptysis. GI: No nausea, no vomiting. No abdominal pain. : No hematuria. No polyuria. MUSCULOSKELETAL: No joint swelling. PSYCHIATRIC: Not anxious. No depression. No suicidal thoughts. No homicidal thoughts. SKIN: Intact. No rash. PHYSICAL EXAMINATION: V/S: BP 164/90, respiratory rate 22, heart rate 98, temperature 97.8, saturation 95 on 2L. HEENT: Normocephalic, atraumatic. Mucosa dry, pallor positive. No icterus. NECK: Supple. No JVD, no carotid bruit. No lymphadenopathy. LUNGS: Decreased basilar crackles. No rales or rhonchi. HEART: S1, S2 normal. No S3. No murmur, gallop or regurgitation. ABDOMEN: Soft, tender left lower quadrant. Bowel sounds sluggish. No rigidity. No rebound or guarding. No CVA tenderness. EXTREMITIES: No cyanosis, clubbing or pedal edema. MUSCULOSKELETAL: No joint swelling. NEUROLOGIC: Awake, alert, oriented times three. No focal deficit. LYMPHATIC: No lymph nodes palpable. SKIN: Intact. LABS: White count 14.03, hemoglobin 10.1, hematocrit 31.8, platelet count 40. Sodium 138, potassium 4.2, chloride 102, bicarb 27, BUN 46, creatinine 0.79, glucose 222. ASSESSMENT: 1. HYPOXEMIC COMMUNITY ACQUIRED PNEUMONIA, RIGHT LOWER LOBE, RIGHT MIDDLE LOBE , RIGHT UPPER LOBE, WHICH IS GETTING BETTER 2. ACUTE PANCREATITIS, RESOLVING 3. COLITIS, BETTER, STILL CONSTIPATED 4. HISTORY OF RIGHT LUNG PNEUMONIA 5. ANEMIA NEEDING BLOOD TRANSFUSION 6. THROMBOCYTOPENIA MOST LIKELY FROM SEPSIS AND ANTIBIOTIC USE 7. STATUS POST ACUTE RENAL FAILURE WHICH HAS IMPROVED 8. HYPERGLYCEMIA FROM THE STEROIDS PLAN: 1. The patient will need continuous IV antibiotics so will plan to place patient in the Transitional Care Unit. 2. Continue Rocephin 1 gm daily for Pseudomonas in the sputum. 3. Daily IV fluids. 4. Daily I & O's. 5. Demerol for the pain. 6. Poor prognosis discussed with the patient and family in detail; verbalized understanding. TIME SPENT: More than 35 minutes MTDD
== END 2018-02-18 14:28 | disposition swing bed (61) | DRG 177 ==
LOC: ED 22:23 → MEDSURG B 02-11 01:02
PROVIDERS: ADMIT Emergency Medicine; ATTEND Emergency Medicine
PROC: 30233N1 Transfusion of Nonautologous Red Blood Cells into Peripheral Vein, Percutaneous Approach (ICD-10-PCS; principal; 2018-02-11)
DX: J15.1 Pneumonia due to Pseudomonas (principal); K85.90 Acute pancreatitis without necrosis or infection, unspecified; C34.11 Malignant neoplasm of upper lobe, right bronchus or lung; N17.9 Acute kidney failure, unspecified; K56.609 Unspecified intestinal obstruction, unspecified as to partial versus complete obstruction; K52.9 Noninfective gastroenteritis and colitis, unspecified; I10 Essential (primary) hypertension; E78.5 Hyperlipidemia, unspecified; D09.9 Carcinoma in situ, unspecified; J44.9 Chronic obstructive pulmonary disease, unspecified; K57.90 Diverticulosis of intestine, part unspecified, without perforation or abscess without bleeding; F41.8 Other specified anxiety disorders; M19.90 Unspecified osteoarthritis, unspecified site; Z85.41 Personal history of malignant neoplasm of cervix uteri; R60.0 Localized edema; M47.9 Spondylosis, unspecified; I25.10 Atherosclerotic heart disease of native coronary artery without angina pectoris; K59.03 Drug induced constipation; E87.5 Hyperkalemia; R10.9 Unspecified abdominal pain; E03.9 Hypothyroidism, unspecified; D64.9 Anemia, unspecified; D69.59 Other secondary thrombocytopenia; T36.95XA Adverse effect of unspecified systemic antibiotic, initial encounter; R73.9 Hyperglycemia, unspecified; I71.4 Abdominal aortic aneurysm, without rupture
CPT/HCPCS: 36415; 36430; 80053; 81001; 82140; 82150; 82550; 82803; 83605; 83690; 84145; 84484; 85007; 85008; 85014; 85018; 85025; 86850; 86900; 86922; 87040; 87070; 87081; 87086; 87186; 93005; 93010; 94640; 96365; 96375; 97802; 99232; 99233; 99239; 99284

== ENCOUNTER 2018-02-18 14:34 | Inpatient (IN) | payer OTHER ==
[2018-02-18] MEDS ORDERED: TYLENOL PO PRN (14:57)
[2018-02-18] MEDS ORDERED: DHA PO SCH (15:00)
[2018-02-18] MEDS ORDERED: FISH OIL PO SCH (15:00)
[2018-02-18] MEDS ORDERED: EPA PO SCH (15:00)
[2018-02-18] MEDS ORDERED: DEMEROL 50 MG/ML VIAL IVP PRN (15:01)
[2018-02-18] MEDS ORDERED: ZOFRAN 4 MG/2 ML IVP PRN (16:09)
[2018-02-18] MEDS: NYSTATIN ORAL SUSP PO SCH ×2 (16:44→20:08)
[2018-02-18] MEDS: NORCO 7.5-325 PO PRN (16:44)
[2018-02-18] MEDS: PROTONIX PO SCH (16:44)
[2018-02-18] MEDS: COREG PO SCH (16:44)
[2018-02-18 16:45] VITALS: BMI 17.9
[2018-02-18] MEDS: XANAX PO PRN ×2 (16:45→20:08)
[2018-02-18] MEDS: XOPENEX 1.25 MG NEB SCH ×2 (17:05→22:19)
[2018-02-18] MEDS: COSOPT OP SCH (20:07)
[2018-02-18] MEDS: TUSSIONEX PO SCH (20:07)
[2018-02-18] MEDS: CLEOCIN 600 MG in SODIUM CHLORIDE 50 ML IV SCH (20:08)
[2018-02-18] MEDS: CALMOSEPTINE OINTMENT TP SCH (20:08)
[2018-02-18] MEDS: TRAVATAN Z OP SCH (20:08)
[2018-02-18] MEDS: SOLU-MEDROL 40 MG IVP SCH (20:09)
[2018-02-18] MEDS: OMEGA-3 FISH OIL PO SCH (20:09)
[2018-02-18] MEDS: MAXIPIME 2 GM in SODIUM CHLORIDE 100 ML IV SCH (21:42)
[2018-02-19] MEDS: CLEOCIN 600 MG in SODIUM CHLORIDE 50 ML IV SCH ×3 (04:13→20:16)
[2018-02-19] MEDS: NORCO 7.5-325 PO PRN (04:15)
[2018-02-19] MEDS: XOPENEX 1.25 MG NEB SCH ×4 (04:53→21:35)
[2018-02-19] MEDS: NYSTATIN ORAL SUSP PO SCH ×4 (05:41→21:43)
[2018-02-19] MEDS: PROTONIX PO SCH ×2 (05:41→17:37)
[2018-02-19] MEDS: SOLU-MEDROL 40 MG IVP SCH ×3 (05:42→20:15)
[2018-02-19] MEDS ORDERED: MORPHINE 4 MG/ML VIAL IVP STA (08:05)
[2018-02-19] MEDS ORDERED: TORADOL IVP STA (08:05)
[2018-02-19] MEDS ORDERED: DECADRON 4 MG/ML SDV IM STA (08:05)
[2018-02-19] MEDS ORDERED: DEMEROL 50 MG/ML VIAL IVP PRN (08:21)
[2018-02-19] MEDS: CALMOSEPTINE OINTMENT TP SCH ×2 (08:30→20:16)
[2018-02-19] MEDS ORDERED: MORPHINE 2 MG/ML SYRINGE IVP PRN (08:33)
[2018-02-19] MEDS: COREG PO SCH ×2 (08:55→17:34)
[2018-02-19] MEDS: MAXIPIME 2 GM in SODIUM CHLORIDE 100 ML IV SCH ×2 (08:57→21:39)
[2018-02-19] MEDS ORDERED: LEXAPRO PO SCH (09:00)
[2018-02-19] MEDS ORDERED: MIRALAX PO SCH (09:00)
[2018-02-19] MEDS ORDERED: MEGACE PO SCH (09:00)
[2018-02-19] MEDS: TUSSIONEX PO SCH ×2 (09:07→21:43)
[2018-02-19] MEDS: OMEGA-3 FISH OIL PO SCH ×2 (09:09→14:58)
[2018-02-19] MEDS: COSOPT OP SCH ×2 (09:15→21:42)
[2018-02-19] MEDS: SODIUM CHLORIDE 1,000 ML IV SCH ×2 (09:26→15:00)
[2018-02-19] MEDS: MORPHINE 4 MG/ML VIAL IVP PRN ×4 (12:37→22:21)
[2018-02-19] MEDS ORDERED: SOLU-CORTEF 250 MG IVP STA (14:11)
[2018-02-19] MEDS: TORADOL IVP SCH ×2 (14:29→20:15)
[2018-02-19] MEDS ORDERED: LASIX IVP STA (15:11)
[2018-02-19] MEDS ORDERED: TRANSDERM-SCOP 1.5 MG PATCH TD SCH (15:30)
[2018-02-19] MEDS: TRAVATAN Z OP SCH (21:43)
[2018-02-19 21:47] VITALS: BP 88/42; TEMP 97.3
[2018-02-20] MEDS: MORPHINE 4 MG/ML VIAL IVP PRN ×2 (00:54→03:44)
[2018-02-20] MEDS: TORADOL IVP SCH (04:25)
[2018-02-20] MEDS: CLEOCIN 600 MG in SODIUM CHLORIDE 50 ML IV SCH (04:25)
[2018-02-20] MEDS: SOLU-MEDROL 40 MG IVP SCH (04:25)
[2018-02-20] MEDS: XOPENEX 1.25 MG NEB SCH (05:15)
[2018-02-20] MEDS: PROTONIX PO SCH (06:28)
[2018-02-20] MEDS: NYSTATIN ORAL SUSP PO SCH (06:28)
--- NOTE | 2018-02-20 12:10 | HP ---
DATE OF SERVICE: 02/19/18 (02/18/18 - ADMITTED TO SWING BED) HISTORY OF PRESENT ILLNESS: This is a 72-year-old white female with a history of right upper lobe lung cancer who has been in and out of the hospital over the past several months with recurrent pneumonia. Most recently she has been under the care of Dr. Vega for the past 10 days or so for the treatment of right upper lobe, right middle lobe and lower lobe pneumonia. She had acute kidney injury which has since resolved. Her condition has steadily declined over the course of her hospital stay. She has been admitted to swing bed to continue IV antibiotics and likely transition to comfort care if no improvement. PAST MEDICAL/SURGICAL HISTORY: Recurrent right lobe pneumonia Cancer of the right lung (she sees Dr. Cordero). She completed all of her radiation however was still completing chemotherapy. Chronic bronchitis COPD Heavy smoker for a number of years Degenerative joint disease of the spine Hypertension Dyslipidemia Depression Peripheral arterial disease Carotid stenosis Hysterectomy Colonoscopy in February of 2017 - she has not had a mammogram REVIEW OF SYSTEMS: CONSTITUTIONAL: Positive for fatigue, malaise. No night sweats. No lethargy. No fever or chills. HEENT: Eyes: No visual changes. No eye pain. No eye discharge. ENT: No runny nose. No epistaxis. No sinus pain. No sore throat. No odynophagia. No ear pain. No congestion. RESPIRATORY: Cough, shortness of breath. No hemoptysis. CARDIOVASCULAR: No angina symptoms. No CHF symptoms. No atypical chest pain for CAD. No palpitations. No PND. No orthopnea. GASTROINTESTINAL: No abdominal pain. No nausea or vomiting. No diarrhea or constipation. No hematemesis. No hematochezia. GENITOURINARY: No urgency. No frequency. No dysuria. No hematuria. No obstructive symptoms. No discharge. No pain. No significant abnormal bleeding. MUSCULOSKELETAL: Generalized weakness. NEUROLOGICAL: No headache. No neck pain. No syncope. No seizures. No dizziness. PSYCHIATRIC: Not anxious. No depression. No suicidal thoughts. No homicidal thoughts. SKIN: No rash. No lesions. No wounds. ENDOCRINE: No unexplained weight loss. No weight gain. HEMATOLOGIC/LYMPHATIC: No anemia. No purpura. No petechiae. No prolonged or excessive bleeding. No palpable lymph nodes. PERSONAL/FAMILY/SOCIAL HISTORY: She is . She lives at home. Her son currently lives with her. She is a long-term smoker, no alcohol or illicit drug use. MEDICATIONS: Clindamycin 300 mg t.i.d. IV Lasix 20 mg IV times one dose today Coreg 12.5 mg p.o. b.i.d. (increased from 6.25 mg p.o. b.i.d.) Nebulizer treatments IV steroids ALLERGIES: NKDA PHYSICAL EXAMINATION: GENERAL: The patient is alert at times, very drowsy but arousable. She has had confusion off and on at times. She is very pale, short of breath. No acute distress. VITAL SIGNS: HEENT: Head normocephalic, atraumatic. Eyes: Extraocular muscles are intact. Pupils are equal, round and reactive to light and accommodation. Ears: No lesions. Nose appeared normal. Throat: No exudate or erythema. NECK: Supple. No JVD, no carotid bruit. No lymphadenopathy or thyromegaly. LUNGS: Severely diminished. Coarse lungs sounds right lobe and left lower lobe. Percussion note normal. Chest symmetrical. HEART: S1, S2, no S3. No murmurs. No cyanosis or clubbing. No ascites. Pulses: Dorsalis pedis and posterior tibial pulses +1 to +2 bilaterally. ABDOMEN: Soft. Nontender. Bowel sounds active. No CVA tenderness. No mass felt. EXTREMITIES: No edema. Full range of motion of all extremities, equal. NEUROLOGIC: No focal deficit. Cranial nerves II through XII are grossly intact. No headache, no double vision or headache. SKIN: Not dry. Intact. Turgor - normal. LYMPHATIC: No palpable lymph nodes/no lymphedema. MUSCULOSKELETAL: Normal joints with no swelling. Muscle tone is normal. LABS: None today. ASSESSMENT: 1. BILATERAL PNEUMONIA 2. LUNG CANCER, RIGHT UPPER LOBE 3. SEVERE COPD 4. LONG HISTORY OF SMOKER 5. DEGENERATIVE JOINT DISEASE 6. HYPERTENSION 7. DYSLIPIDEMIA 8. DEPRESSION 9. PAD 10. FAILURE TO THRIVE PLAN: Will admit to swing bed. It has been discussed at length with the family that her prognosis is poor. Her condition has steadily deteriorated despite aggressive antibiotic therapy. At one point as an inpatient, she was on three different antibiotic medications which she developed acute kidney injury. We are still treating her with IV antibiotics and IV steroids. This will continue. Her kidney function has returned down to normal. We will continue with IV fluids as she is not eating or drinking. Her urine output is very poor, dark colored urine. We have discussed the possibility of Hospice, comfort measures. She is complaining of pain today. She did have elevated amylase but not lipase as if she has resolving pancreatitis. She has been complaining of abdominal pain. Will start Morphine 2 mg every 2 hours p.r.n. IV as well as Toradol 30 mg IV q.8hr scheduled along with 1 cc of Decadron, Zofran for nausea. We will continue to monitor her closely. Again, her prognosis is poor. We have discussed this in detail with the family. TIME SPENT: More than 70 minutes. JOVANY
--- NOTE | 2018-02-24 10:51 | DS ---
DATE OF SERVICE: 02/20/18 CAUSE OF : Cancer of the lung FINAL DIAGNOSIS: 1. Respiratory failure 2. Bilateral pneumonia 3. Acute pancreatis 4. Severe chronic lung disease 5. C of the lung 6. Smoking HOSPITAL COURSE: Valerie Escobar was hospitalized with cute respiratory failure with pneumonia and the patient also had acute pancreatitis. The patient was treated with IV antibiotics and steroids. Also was treated with NPO for acute pancreatitis which seemed to have improved but at the same time her respiratory status initially after improvement to some extent deteriorated and was put on the swing bed for continued IV antibiotics. The patient was also given NEBS treatment, steroids. The patient has also been followed health companion/oncologist and radiation specialist. The patient had endstage lung disease with C of the lung. She decided not to get transferred for further care to any tertiary center. She was a DNR. The patient because of respiratory failure with underlined C of the lung with pneumonia. TIME SPENT: More than 60 minutes. MTDD
--- NOTE | 2018-02-24 10:52 | PN ---
Swing bed admission: Level 5 02/19/18: Intermediate 02/20/18: Intermediate MTDD
== END 2018-02-20 06:35 | disposition expired | DRG 189 ==
LOC: MEDSURG B 14:34
PROVIDERS: ADMIT Internal Medicine; ATTEND Internal Medicine
DX: J96.90 Respiratory failure, unspecified, unspecified whether with hypoxia or hypercapnia (principal); J18.9 Pneumonia, unspecified organism; K85.90 Acute pancreatitis without necrosis or infection, unspecified; C34.90 Malignant neoplasm of unspecified part of unspecified bronchus or lung; F17.200 Nicotine dependence, unspecified, uncomplicated; J44.9 Chronic obstructive pulmonary disease, unspecified; I10 Essential (primary) hypertension; R10.9 Unspecified abdominal pain; Z79.899 Other long term (current) drug therapy; Z79.2 Long term (current) use of antibiotics
CPT/HCPCS: 94640